=== PATIENT | female | born 1955 | race Caucasian/White ===

== ENCOUNTER 2021-10-26 18:51 | Emergency (ER) | payer BC, SELFPAY ==
[2021-10-26 19:20] VITALS: BP 146/86; PULSE 87; RESP 19; TEMP 37; O2SAT 98; BMI 48.2
--- NOTE | 2021-10-26 19:29 | XR_ITS ---
PROCEDURE INFORMATION: Exam: XR Chest Exam date and time: 10/26/2021 7:29 PM Age: 65 years old Clinical indication: Cough TECHNIQUE: Imaging protocol: XR of the chest. Views: 2 views. COMPARISON: No relevant prior studies available. FINDINGS: Lungs: Subtle interstitial haziness could reflect interstitial pneumonia. No consolidation. Pleural spaces: Unremarkable. No pleural effusion. No pneumothorax. Heart/Mediastinum: Unremarkable. No cardiomegaly. Bones/joints: Unremarkable. IMPRESSION: Subtle interstitial haziness could reflect interstitial pneumonia.
[2021-10-26 19:47] LABS: UTC Strep Screen (Rapid) Negative (Negative)
[2021-10-26 19:48] LABS: UTC Influenza A Antigen Negative (Negative); UTC Influenza B Antigen Negative (Negative)
--- NOTE | 2021-10-26 19:55 | HMH.EDUTC ---
[facility] Disposition Condition on Discharge: Good Time of Disposition: 20:34 <Valentin Stockton - Last Filed: 10/26/21 20:32> <Ta Gorman - Last Filed: 10/26/21 21:48> Clinical Impression: Wheezing CHF (congestive heart failure) Qualifiers: Heart failure type: other Qualified Code(s): I50.9 - Heart failure, unspecified Disposition: Home, Self-Care Instructions: Heart Failure Additional Instructions: see card in am for eval Prescriptions: Benzonatate [Benzonatate 100mg cap] 100 mg PO BID PRN 7 Days #14 cap PRN Reason: Cough Transmission Status: Sent to [facility] Azithromycin [Zithromax 250mg tab] 250 mg PO DIRECTED #6 tab Transmission Status: Sent to [facility] Referrals: Rowan Neville APRN [Primary Care Provider] - Jhon Ng MD [Staff Physician] - Medical Decision Making - Adam Inquiry Pt receiving controlled substance: No - Physician Consults Physician Consulted: bharat Time: 20:32 Reason -: Other Comment/Response: chest xray- poss chf- sent to ed for evaluation and treatment <Valentin Stockton - Last Filed: 10/26/21 20:32> - Medical Records Medical records reviewed: Yes: I reviewed the patient's medical records. - Lab Data Lab results reviewed: Yes: I reviewed the patient's lab results. Result diagrams: 10/26/21 20:48 10/26/21 20:48 - Radiology Data #1 Image(s): Chest Image Reviewed: Yes I have reviewed radiologist's interpretation Preliminary Findings: Abnormal - ECG Data Tracing #1 Normal Sinus Rhythm: Yes Ischemic changes: non-specific ST-T wave changes <Ta Gorman - Last Filed: 10/26/21 21:48> Vital Signs: 10/26/21 19:20 10/26/21 20:20 10/26/21 20:54 Temperature 98.6 F 98.6 F 98.2 F Temperature Source Oral Oral Pulse Rate 87 Pulse Rate [Right Brachial] 87 77 Respiratory Rate 19 19 20 Blood Pressure 146/86 H Blood Pressure [Right Arm] 146/86 H 166/65 H Blood Pressure Mean [Right Arm] 106 98 Blood Pressure Source [Right Arm] Automatic Cuff Automatic Cuff Blood Pressure Position [Right Arm] Sitting Sitting 02 Sat by Pulse Oximetry 98 99 Oxygen Delivery Method Room Air Room Air - Lab Data Lab Results 10/26/21 19:47: Influenza Type A Ag Negative, Influenza Type B Ag Negative 10/26/21 19:47: Strep Scn Rapid Clinic Negative 10/26/21 20:48: WBC 6.5, RBC 4.54, Hgb 14.0, Hct 44.7, MCV 98.5, MCH 30.8, MCHC 31.3 L, RDW 14.7, Plt Count 251, MPV 8.9, Neut % (Auto) 63.5, Lymph % (Auto) 25.6, [place] % (Auto) 4.6, Eos % (Auto) 4.9, Baso % (Auto) 1.4, Neut # (Auto) 4.1, Lymph # (Auto) 1.7, [place] # (Auto) 0.3, Eos # (Auto) 0.3, Baso # (Auto) 0.1 10/26/21 20:48: Sodium 138, Potassium 4.2, Chloride 101, Carbon Dioxide 28, Anion Gap 13.2, BUN 8, Creatinine 0.80, Estimated Creat Clear 43, Estimated GFR 72, Est GFR ( Amer) 87, Glucose 112 H, Calcium 9.3, Total Bilirubin 0.7, AST 30, ALT 20, Alkaline Phosphatase 78, Troponin I < 0.01, NT-Pro-B Natriuret Pep 995 H, Total Protein 6.8, Albumin 4.1, Globulin 2.7, Albumin/Globulin Ratio 1.5 Orders (Tests/Meds): ED MEDICATIONS Discontinued Medications Generic Name Dose Route Start Last Admin Trade Name Freq PRN Reason Stop Dose Admin Dexamethasone Sodium Phosphate 4 mg 10/26/21 20:11 10/26/21 20:17 Dexamethasone 4mg/Ml 1ml Vial IM 10/26/21 20:12 4 mg ONCE ONE Administration Furosemide 40 mg 10/26/21 21:02 10/26/21 21:03 Furosemide 40mg/4ml Vial IV 10/26/21 21:03 40 mg ONCE ONE Administration ORDERS Category Date Time Status Covid-19 Nasal PCR ([facility]) Routine Lab 10/26/21 19:30 Received Lipid Panel Stat Lab 10/26/21 21:43 Ordered T4 (Thyroxine) Stat Lab 10/26/21 21:43 Ordered Thyroid Stimulating Hormone Stat Lab 10/26/21 21:43 Ordered Troponin I Q3H Lab 10/26/21 23:51 Ordered Troponin I Q3H Lab 10/27/21 02:51 Ordered Strep Screen Confirmation Stat Micro 10/26/21 19:47 Received Medical Decision Narrative: c
[2021-10-26 20:20] VITALS: BP 146/86; PULSE 87; RESP 19; TEMP 37; O2SAT 98
--- NOTE | 2021-10-26 20:30 | PC.NURSE ---
PATIENT SENT TO ER PER Krystina MAN APRN FOR FURTHER EVALUATION. REPORT GIVEN TO Edie STEWART RN
--- NOTE | 2021-10-26 20:41 | ECG_ITS ---
APPROVED REPORT Exam: Resting ECG HR:73 bpm ECG Measurements Heart Rate 73 AXES SC 158 P 61 QRSd 80 QRS 59 QT 380 T 48 QTc 418 Conclusion Normal sinus rhythm Low voltage QRS Borderline ECG Electronically signed by : Georgi Tam MD 10/29/2021 13:28:42
[2021-10-26 20:54] VITALS: BP 166/65; PULSE 77; RESP 20; TEMP 36.8; O2SAT 99; BMI 48.6
[2021-10-26 20:56] LABS: Basophils # 0.1 K/mm3 (0-0.2); Basophils % 1.4 % (0.1-2.0); Eosinophils # 0.3 K/mm3 (0.0-0.4); Eosinophils % 4.9 % (0.1-12.0); Hematocrit 44.7 % (37.0-47.0); Lymphocytes # 1.7 K/mm3 (0.7-4.5); Lymphocytes % 25.6 % (10-50); Mean Corpuscular HGB Conc 31.3 g/dL (31.8-35.4); Mean Corpuscular Hemoglobin 30.8 pg (27.0-31.2); Mean Corpuscular Volume 98.5 fl (81-99); Mean Platelet Volume 8.9 fl (7.4-10.4); Monocytes # 0.3 K/mm3 (0.1-1.0); Monocytes % 4.6 % (1.7-9.3); Neutrophils # 4.1 K/mm3 (1.8-7.8); Neutrophils % 63.5 % (37.0-80.0); Platelet Count 251 K/mm3 (142-424); Red Blood Count 4.54 M/mm3 (4.20-5.40); Red Cell Distribution Width 14.7 % (11.5-17.5); White Blood Count 6.5 K/mm3 (4.8-10.8)
[2021-10-26 21:04] LABS: Alanine Aminotransferase 20 U/L (12-78); Albumin Level 4.1 g/dl (3.5-5.0); Albumin/Globulin Ratio 1.5 (1.1-1.8); Alkaline Phosphatase 78 U/L (38-126); Anion Gap 13.2 mEq/L (5-15); Aspartate Amino Transferase 30 U/L (14-36); Bilirubin,Total 0.7 mg/dl (0.2-1.3); Blood Urea Nitrogen 8 mg/dl (7-17); Calcium 9.3 mg/dl (8.4-10.2); Carbon Dioxide 28 mmol/L (22.0-30.0); Chloride 101 mmol/L (98-107); Creatinine Clearance Estimated 43 mL/min (50-200); Estimated Glomerular Filt Rate 72 ml/min (>60); GFR (African American) 87 ML/MIN (>60); Globulin 2.7 g/dL (1.3-3.2); Glucose 112 mg/dl (74-100); Potassium 4.2 mmoL/L (3.5-5.1); Sodium 138 mmol/L (136-145); Total Protein,Serum 6.8 g/dl (6.3-8.2)
[2021-10-26 21:16] LABS: NT Pro Brain Natriuretic Pep. 995 pg/mL (0-125)
[2021-10-26 21:17] LABS: Troponin I < 0.01 ng/ml (0.00-0.034)
[2021-10-26 21:53] LABS: Cholesterol 191 mg/dl (140-200); Triglycerides 105 mg/dl (30-150); VLDL Cholesterol 21 mg/dL (0-40)
[2021-10-26 21:54] LABS: Chol/HDL Ratio 1.8 (1-3.5); HDL Cholesterol 106 mg/dl (40-60)
[2021-10-26 22:04] LABS: Direct LDL Cholesterol 68.02 mg/dL (100-129)
[2021-10-26 22:11] VITALS: BP 153/78; PULSE 79; RESP 20; TEMP 36.7; O2SAT 97
[2021-10-26 22:12] LABS: T4 (Thyroxine) 10.3 ug/dl (5.53-11.0)
[2021-10-26 22:26] LABS: Thyroid Stimulating Hormone 7.28 uIU/mL (0.465-4.68)
== END 2021-10-26 22:15 | disposition home or self-care (01) ==
LOC: UTC 20:33 → ER 20:44
PROVIDERS: Emergency Medicine; Emergency Provider Nurse Practitioner Family; PCP Nurse Practitioner Family
DX: I50.9 Heart failure, unspecified (principal); R05.1 Acute cough; R06.2 Wheezing; Z20.822 Contact with and (suspected) exposure to COVID-19
CPT/HCPCS: 71046; 80053; 80061; 83880; 84436; 84443; 84484; 85025; 87804; 87880; 93005; 96372; 96374; 96375; 99291; C9803; U0003; U0005

== ENCOUNTER → 2022-10-20 09:01 | Outpatient (CLI) | payer BC, SELFPAY ==
--- NOTE | 2022-10-20 09:01 | US_ITS ---
FINAL REPORT CLINICAL HISTORY: back and abdominal discomfort FINDINGS: Sonographic images of the abdomen were obtained. The liver has mild increased echogenicity. The gallbladder has an unremarkable appearance without evidence of gallstones. There is no evidence of biliary ductal dilatation. The common hepatic duct measures 3 mm, which is within normal limits. Limited images of the pancreas are unremarkable. The spleen size is normal. The right kidney measures 10.6 cm in length. The left kidney measures 11.5 cm in length. There is normal renal echogenicity. There is no evidence of hydronephrosis. The aorta has an unremarkable appearance. Limited images of the inferior vena cava are unremarkable. IMPRESSION: Mild fatty infiltration of the liver. Reviewed, Interpreted and Dictated by Franklyn Davis III, MD Transcribed by Kal Miramontes Authenticated and [facility]
--- NOTE | 2022-10-20 10:18 | XR_ITS ---
FINAL REPORT CLINICAL HISTORY: back pain right side between shoulder blades FINDINGS: THORACIC SPINE SERIES. Two views demonstrate no fracture. There are moderate degenerative changes with osteophytes. There is no malalignment. IMPRESSION: Moderate degenerative changes. Reviewed, Interpreted and Dictated by Franklyn Davis III, MD Transcribed by Kal Miramontes Authenticated and [facility]
== END ==
PROVIDERS: PCP Family Medicine; Visit Provider Family Medicine
DX: K21.9 Gastro-esophageal reflux disease without esophagitis (principal); M54.9 Dorsalgia, unspecified
CPT/HCPCS: 72070; 76700

== ENCOUNTER → 2022-12-07 23:30 | Outpatient (CLI) | payer BC, SELFPAY ==
[2022-12-07 17:17] LABS: Alanine Aminotransferase 13 U/L (12-78); Albumin Level 3.8 g/dl (3.5-5.0); Albumin/Globulin Ratio 1.5 (1.1-1.8); Alkaline Phosphatase 73 U/L (38-126); Anion Gap 8.5 mEq/L (5-15); Aspartate Amino Transferase 23 U/L (14-36); Bilirubin,Total 0.7 mg/dl (0.2-1.3); Blood Urea Nitrogen 16 mg/dl (7-17); Calcium 8.6 mg/dl (8.4-10.2); Carbon Dioxide 29 mmol/L (22.0-30.0); Chloride 96 mmol/L (98-107); Cholesterol 184 mg/dl (140-200); Estimated Glomerular Filt Rate 84 ml/min (>60); GFR (African American) 101 ML/MIN (>60); Globulin 2.5 g/dL (1.3-3.2); Glucose 65 mg/dl (74-100); HDL Cholesterol 90 mg/dl (40-60); Magnesium 1.8 mg/dl (1.6-2.3); Potassium 4.5 mmoL/L (3.5-5.1); Sodium 129 mmol/L (136-145); Total Protein,Serum 6.3 g/dl (6.3-8.2); Triglycerides 44 mg/dl (30-150); VLDL Cholesterol 9 mg/dL (0-40)
[2022-12-07 17:24] LABS: Basophils % 0.7 % (0.1-2.0); Eosinophils # 0.1 K/mm3 (0.0-0.4); Eosinophils % 1.4 % (0.1-12.0); Hematocrit 47.3 % (37.0-47.0); Hemoglobin 15.5 g/dL (12.2-16.2); Lymphocytes # 1.2 K/mm3 (0.7-4.5); Lymphocytes % 21.2 % (10-50); Mean Corpuscular HGB Conc 32.7 g/dL (31.8-35.4); Mean Corpuscular Hemoglobin 30.6 pg (27.0-31.2); Mean Corpuscular Volume 93.8 fl (81-99); Mean Platelet Volume 9.4 fl (7.4-10.4); Monocytes # 0.4 K/mm3 (0.1-1.0); Monocytes % 6.1 % (1.7-9.3); Neutrophils # 4.1 K/mm3 (1.8-7.8); Neutrophils % 70.5 % (37.0-80.0); Platelet Count 279 K/mm3 (142-424); Red Blood Count 5.05 M/mm3 (4.20-5.40); Red Cell Distribution Width 13.4 % (11.5-17.5); White Blood Count 5.8 K/mm3 (4.8-10.8)
[2022-12-07 17:27] LABS: Direct LDL Cholesterol 78.06 mg/dL (100-129)
[2022-12-07 18:06] LABS: Vitamin B12 291 pg/mL (239-931)
[2022-12-07 18:08] LABS: Hemoglobin A1C 6.1 % (4.0-6.0)
== END ==
PROVIDERS: PCP Family Medicine; Visit Provider Family Medicine
DX: Z00.00 Encounter for general adult medical examination without abnormal findings (principal); I10 Essential (primary) hypertension; E11.69 Type 2 diabetes mellitus with other specified complication; E03.9 Hypothyroidism, unspecified; Z79.4 Long term (current) use of insulin
CPT/HCPCS: 80053; 80061; 82607; 83036; 83735; 84443; 85025

== ENCOUNTER → 2022-12-15 19:36 | Outpatient (CLI) | payer BC, SELFPAY ==
[2022-12-15 20:29] LABS: Anion Gap 8.6 mEq/L (5-15); Blood Urea Nitrogen 15 mg/dl (7-17); Calcium 8.6 mg/dl (8.4-10.2); Carbon Dioxide 27 mmol/L (22.0-30.0); Chloride 102 mmol/L (98-107); Estimated Glomerular Filt Rate 63 ml/min (>60); GFR (African American) 76 ML/MIN (>60); Glucose 126 mg/dl (74-100); Potassium 5.6 mmoL/L (3.5-5.1); Sodium 132 mmol/L (136-145)
== END ==
PROVIDERS: PCP Family Medicine; Visit Provider Family Medicine
DX: E87.1 Hypo-osmolality and hyponatremia (principal)
CPT/HCPCS: 80048

== ENCOUNTER → 2022-12-23 12:39 | Outpatient (CLI) | payer BC, SELFPAY ==
[2022-12-23 12:49] LABS: Microscopic, Urine URINE MICROSCOPIC (MICROSCOPIC)
[2022-12-23 13:08] LABS: Appearance,Urine CLEAR (Clear); Bilirubin,Urine Negative (Negative); Blood, Urine Negative (Negative); Color,Urine YELLOW (Yellow); Glucose,Urine (UA) Negative (Negative); Ketones,Urine Negative (Negative); Leukocyte Esterase,Urine 2+ (Negative); Nitrate,Urine Negative (Negative); PH,Urine 5.5 (5.0-8.5); Protein,Urine Negative (Negative); Urobilinogen,Urine 0.2 EU/dl (0.2)
[2022-12-23 13:10] LABS: Basophils # 0.1 K/mm3 (0-0.2); Basophils % 1.2 % (0.1-2.0); Eosinophils # 0.2 K/mm3 (0.0-0.4); Eosinophils % 3.3 % (0.1-12.0); Hematocrit 49.1 % (37.0-47.0); Lymphocytes # 1.4 K/mm3 (0.7-4.5); Mean Corpuscular HGB Conc 32.5 g/dL (31.8-35.4); Mean Corpuscular Hemoglobin 30.8 pg (27.0-31.2); Mean Corpuscular Volume 94.6 fl (81-99); Mean Platelet Volume 8.6 fl (7.4-10.4); Monocytes # 0.3 K/mm3 (0.1-1.0); Monocytes % 6.2 % (1.7-9.3); Neutrophils # 3.2 K/mm3 (1.8-7.8); Neutrophils % 61.4 % (37.0-80.0); Platelet Count 322 K/mm3 (142-424); Red Blood Count 5.19 M/mm3 (4.20-5.40); Red Cell Distribution Width 13.7 % (11.5-17.5); White Blood Count 5.2 K/mm3 (4.8-10.8)
[2022-12-23 13:12] LABS: Creatinine,Urine Random 82 mg/dL (Not Estab.)
[2022-12-23 13:48] LABS: Albumin Level 3.9 g/dl (3.5-5.0); Chloride 96 mmol/L (98-107); Sodium 129 mmol/L (136-145)
[2022-12-23 13:51] LABS: Blood Urea Nitrogen 13 mg/dl (7-17); Calcium 8.7 mg/dl (8.4-10.2); Carbon Dioxide 29 mmol/L (22.0-30.0); Estimated Glomerular Filt Rate 72 ml/min (>60); GFR (African American) 87 ML/MIN (>60); Glucose 94 mg/dl (74-100); Phosphorous 3.7 mg/dl (2.5-4.5)
[2022-12-23 13:53] LABS: Bacteria,Urine 2+ /lpf; RBC,Urine Occasional #/hpf (0-3); Squamous Epithelial Cell,Urine Occasional #/hpf (0-5)
[2022-12-23 13:58] LABS: Uric Acid 3.4 mg/dl (2.5-6.2)
== END ==
PROVIDERS: PCP Family Medicine; Visit Provider Internal Medicine Nephrology
DX: N28.9 Disorder of kidney and ureter, unspecified (principal); B96.1 Klebsiella pneumoniae [K. pneumoniae] as the cause of diseases classified elsewhere
CPT/HCPCS: 36415; 80069; 81001; 82570; 84155; 84550; 85025; 87086; 87088; 87186

== ENCOUNTER → 2023-01-19 18:52 | Outpatient (CLI) | payer BC, SELFPAY ==
[2023-01-19 19:35] LABS: Microscopic, Urine URINE MICROSCOPIC (MICROSCOPIC)
[2023-01-19 19:52] LABS: Chloride 93 mmol/L (98-107)
[2023-01-19 19:53] LABS: Potassium 4.8 mmoL/L (3.5-5.1); Sodium 128 mmol/L (136-145)
[2023-01-19 19:55] LABS: Alanine Aminotransferase 27 U/L (12-78); Alkaline Phosphatase 84 U/L (38-126); Aspartate Amino Transferase 29 U/L (14-36); Bilirubin,Total 0.8 mg/dl (0.2-1.3); Blood Urea Nitrogen 14 mg/dl (7-17); Creatine Kinase 40 U/L (30-135); Estimated Glomerular Filt Rate 72 ml/min (>60); GFR (African American) 87 ML/MIN (>60)
[2023-01-19 19:56] LABS: Albumin/Globulin Ratio 1.5 (1.1-1.8); Anion Gap 11.8 mEq/L (5-15); Calcium 9.1 mg/dl (8.4-10.2); Carbon Dioxide 28 mmol/L (22.0-30.0); Globulin 2.7 g/dL (1.3-3.2); Glucose 116 mg/dl (74-100); Total Protein,Serum 6.7 g/dl (6.3-8.2)
[2023-01-19 20:01] LABS: C-Reactive Protein 0.8 mg/L (0-4)
[2023-01-19 20:04] LABS: Erythrocyte Sedimentation Rate 2 mm/hr (0-30)
[2023-01-19 20:07] LABS: Basophils # 0.1 K/mm3 (0-0.2); Basophils % 1.3 % (0.1-2.0); Eosinophils # 0.1 K/mm3 (0.0-0.4); Eosinophils % 1.5 % (0.1-12.0); Hematocrit 48.1 % (37.0-47.0); Hemoglobin 16.2 g/dL (12.2-16.2); Lymphocytes # 1.2 K/mm3 (0.7-4.5); Lymphocytes % 22.4 % (10-50); Mean Corpuscular HGB Conc 33.6 g/dL (31.8-35.4); Mean Corpuscular Hemoglobin 31.1 pg (27.0-31.2); Mean Corpuscular Volume 92.5 fl (81-99); Mean Platelet Volume 10.7 fl (7.4-10.4); Monocytes # 0.3 K/mm3 (0.1-1.0); Monocytes % 6.6 % (1.7-9.3); Neutrophils # 3.6 K/mm3 (1.8-7.8); Neutrophils % 68.3 % (37.0-80.0); Platelet Count 337 K/mm3 (142-424); Red Blood Count 5.21 M/mm3 (4.20-5.40); Red Cell Distribution Width 13.9 % (11.5-17.5); White Blood Count 5.2 K/mm3 (4.8-10.8)
[2023-01-19 20:34] LABS: Appearance,Urine CLEAR (Clear); Bilirubin,Urine Negative (Negative); Blood, Urine Negative (Negative); Color,Urine YELLOW (Yellow); Glucose,Urine (UA) Negative (Negative); Ketones,Urine Negative (Negative); Leukocyte Esterase,Urine 1+ (Negative); Nitrate,Urine POSITIVE (Negative); PH,Urine 7.5 (5.0-8.5); Protein,Urine Negative (Negative); Urobilinogen,Urine 0.2 EU/dl (0.2)
[2023-01-19 21:29] LABS: Bacteria,Urine 4+ /lpf; WBC,Urine 20-50 #/hpf (0-3)
== END ==
PROVIDERS: PCP Internal Medicine; Visit Provider Internal Medicine
DX: M35.00 Sjogren syndrome, unspecified (principal); M79.7 Fibromyalgia; Z79.1 Long term (current) use of non-steroidal anti-inflammatories (NSAID)
CPT/HCPCS: 80053; 81001; 82550; 85025; 85651; 86140; 87086; 87088; 87186

== ENCOUNTER → 2023-02-09 12:17 | Outpatient (CLI) | payer BC, SELFPAY ==
[2023-02-09 13:06] LABS: Creatinine,Urine Random 157 mg/dL (Not Estab.)
[2023-02-09 14:06] LABS: Albumin Level 3.6 g/dl (3.5-5.0); Chloride 96 mmol/L (98-107); Potassium 5.6 mmoL/L (3.5-5.1); Sodium 130 mmol/L (136-145)
[2023-02-09 14:09] LABS: Anion Gap 13.6 mEq/L (5-15); Blood Urea Nitrogen 15 mg/dl (7-17); Calcium 8.9 mg/dl (8.4-10.2); Carbon Dioxide 26 mmol/L (22.0-30.0); Estimated Glomerular Filt Rate 72 ml/min (>60); GFR (African American) 87 ML/MIN (>60); Glucose 99 mg/dl (74-100)
[2023-02-10 10:13] LABS: Sodium, Urine 82 mmol/L (Not Estab.)
[2023-02-11 07:15] LABS: Osmolality, Urine 483 mOsmol/kg (.)
[2023-02-15 20:19] LABS: Renin Activity, Plasma 3.789 ng/mL/hr (0.167-5.380)
== END ==
PROVIDERS: PCP Family Medicine; Visit Provider Internal Medicine Nephrology
DX: E87.1 Hypo-osmolality and hyponatremia (principal)
CPT/HCPCS: 36415; 80069; 82088; 82533; 82570; 83930; 83935; 84244; 84300

== ENCOUNTER → 2023-03-04 15:50 | Outpatient (CLI) | payer BC, SELFPAY ==
[2023-03-04 17:06] LABS: Basophils % 0.4 % (0.1-2.0); Eosinophils # 0.1 K/mm3 (0.0-0.4); Eosinophils % 2.7 % (0.1-12.0); Hematocrit 46.4 % (37.0-47.0); Hemoglobin 14.9 g/dL (12.2-16.2); Lymphocytes # 1.3 K/mm3 (0.7-4.5); Lymphocytes % 24.3 % (10-50); Mean Corpuscular Hemoglobin 30.1 pg (27.0-31.2); Mean Corpuscular Volume 94.2 fl (81-99); Mean Platelet Volume 8.7 fl (7.4-10.4); Monocytes # 0.4 K/mm3 (0.1-1.0); Monocytes % 7.1 % (1.7-9.3); Neutrophils # 3.4 K/mm3 (1.8-7.8); Neutrophils % 65.4 % (37.0-80.0); Platelet Count 281 K/mm3 (142-424); Red Blood Count 4.93 M/mm3 (4.20-5.40); Red Cell Distribution Width 13.7 % (11.5-17.5); White Blood Count 5.1 K/mm3 (4.8-10.8)
[2023-03-04 17:11] LABS: Chloride 95 mmol/L (98-107); Potassium 4.6 mmoL/L (3.5-5.1); Sodium 134 mmol/L (136-145)
[2023-03-04 17:14] LABS: Anion Gap 14.6 mEq/L (5-15); Blood Urea Nitrogen 19 mg/dl (7-17); Carbon Dioxide 29 mmol/L (22.0-30.0); Estimated Glomerular Filt Rate 72 ml/min (>60); GFR (African American) 87 ML/MIN (>60)
[2023-03-04 17:15] LABS: Calcium 9.2 mg/dl (8.4-10.2); Glucose 122 mg/dl (74-100)
== END ==
PROVIDERS: PCP Family Medicine; Visit Provider Family Medicine
DX: F41.9 Anxiety disorder, unspecified (principal)
CPT/HCPCS: 80048; 85025

== ENCOUNTER → 2023-03-09 23:48 | Outpatient (CLI) | payer BC, SELFPAY | PROVIDERS: PCP Family Medicine; Visit Provider Family Medicine | DX: M54.50 Low back pain, unspecified (principal); R10.30 Lower abdominal pain, unspecified | CPT/HCPCS: 87086 ==

== ENCOUNTER → 2023-03-15 17:11 | Outpatient (CLI) | payer BC, SELFPAY ==
[2023-03-15 19:51] LABS: Microscopic, Urine URINE MICROSCOPIC (MICROSCOPIC)
[2023-03-15 20:19] LABS: Albumin Level 3.5 g/dl (3.5-5.0); Blood Urea Nitrogen 16 mg/dl (7-17); Calcium 8.8 mg/dl (8.4-10.2); Carbon Dioxide 26 mmol/L (22.0-30.0); Chloride 95 mmol/L (98-107); Estimated Glomerular Filt Rate 72 ml/min (>60); GFR (African American) 87 ML/MIN (>60); Glucose 189 mg/dl (74-100); Sodium 133 mmol/L (136-145)
[2023-03-15 20:49] LABS: Appearance,Urine CLEAR (Clear); Bilirubin,Urine Negative (Negative); Blood, Urine Negative (Negative); Color,Urine YELLOW (Yellow); Glucose,Urine (UA) Negative (Negative); Ketones,Urine TRACE (Negative); Leukocyte Esterase,Urine TRACE (Negative); Nitrate,Urine Negative (Negative); PH,Urine 5.5 (5.0-8.5); Protein,Urine Negative (Negative); Urobilinogen,Urine 0.2 EU/dl (0.2)
[2023-03-15 21:17] LABS: Bacteria,Urine Trace /lpf; Squamous Epithelial Cell,Urine Occasional #/hpf (0-5); WBC,Urine Occasional #/hpf (0-3)
[2023-03-15 21:18] LABS: Transitional Epi Cells,Urine OCC #/lpf (0-3)
== END ==
PROVIDERS: Internal Medicine Nephrology; PCP Family Medicine; Visit Provider Family Medicine
DX: R10.30 Lower abdominal pain, unspecified (principal); M54.50 Low back pain, unspecified
CPT/HCPCS: 80069; 81001; 87086

== ENCOUNTER → 2023-03-15 19:07 | Outpatient (CLI) | payer BC, SELFPAY | PROVIDERS: PCP Family Medicine; Visit Provider Internal Medicine Nephrology | DX: R82.71 Bacteriuria (principal) ==

== ENCOUNTER → 2023-03-24 14:24 | Outpatient (CLI) | payer BC, SELFPAY ==
[2023-03-24 16:12] LABS: Basophils % 0.3 % (0.1-2.0); Eosinophils # 0.1 K/mm3 (0.0-0.4); Eosinophils % 2.6 % (0.1-12.0); Hemoglobin 14.6 g/dL (12.2-16.2); Lymphocytes # 1.3 K/mm3 (0.7-4.5); Lymphocytes % 23.4 % (10-50); Mean Corpuscular HGB Conc 32.5 g/dL (31.8-35.4); Mean Corpuscular Hemoglobin 30.5 pg (27.0-31.2); Mean Corpuscular Volume 94.1 fl (81-99); Mean Platelet Volume 10.3 fl (7.4-10.4); Monocytes # 0.3 K/mm3 (0.1-1.0); Monocytes % 5.9 % (1.7-9.3); Neutrophils # 3.6 K/mm3 (1.8-7.8); Neutrophils % 67.8 % (37.0-80.0); Platelet Count 302 K/mm3 (142-424); Red Blood Count 4.78 M/mm3 (4.20-5.40); Red Cell Distribution Width 13.8 % (11.5-17.5); White Blood Count 5.3 K/mm3 (4.8-10.8)
[2023-03-24 17:09] LABS: Alanine Aminotransferase 14 U/L (12-78); Albumin Level 3.4 g/dl (3.5-5.0); Albumin/Globulin Ratio 1.5 (1.1-1.8); Alkaline Phosphatase 83 U/L (38-126); Anion Gap 15.3 mEq/L (5-15); Aspartate Amino Transferase 19 U/L (14-36); Bilirubin,Total 0.7 mg/dl (0.2-1.3); Blood Urea Nitrogen 17 mg/dl (7-17); Calcium 8.8 mg/dl (8.4-10.2); Carbon Dioxide 28 mmol/L (22.0-30.0); Chloride 96 mmol/L (98-107); Estimated Glomerular Filt Rate 72 ml/min (>60); GFR (African American) 87 ML/MIN (>60); Globulin 2.3 g/dL (1.3-3.2); Glucose 166 mg/dl (74-100); Potassium 5.3 mmoL/L (3.5-5.1); Sodium 134 mmol/L (136-145); Total Protein,Serum 5.7 g/dl (6.3-8.2)
== END ==
PROVIDERS: PCP Family Medicine; Visit Provider Family Medicine
DX: I10 Essential (primary) hypertension (principal)
CPT/HCPCS: 80053; 85025

== ENCOUNTER → 2023-04-26 12:00 | Outpatient (CLI) | payer BC, SELFPAY ==
[2023-04-26 18:03] LABS: Basophils % 0.4 % (0.1-2.0); Eosinophils # 0.1 K/mm3 (0.0-0.4); Eosinophils % 1.9 % (0.1-12.0); Hematocrit 47.7 % (37.0-47.0); Hemoglobin 14.9 g/dL (12.2-16.2); Lymphocytes % 19.8 % (10-50); Mean Corpuscular HGB Conc 31.1 g/dL (31.8-35.4); Mean Corpuscular Hemoglobin 29.5 pg (27.0-31.2); Mean Corpuscular Volume 94.8 fl (81-99); Mean Platelet Volume 10.7 fl (7.4-10.4); Monocytes # 0.4 K/mm3 (0.1-1.0); Neutrophils # 3.6 K/mm3 (1.8-7.8); Platelet Count 275 K/mm3 (142-424); Red Blood Count 5.03 M/mm3 (4.20-5.40); Red Cell Distribution Width 13.8 % (11.5-17.5); White Blood Count 5.1 K/mm3 (4.8-10.8)
[2023-04-26 18:11] LABS: Alanine Aminotransferase 18 U/L (12-78); Albumin Level 3.8 g/dl (3.5-5.0); Albumin/Globulin Ratio 1.5 (1.1-1.8); Alkaline Phosphatase 89 U/L (38-126); Anion Gap 16.4 mEq/L (5-15); Aspartate Amino Transferase 26 U/L (14-36); Bilirubin,Total 0.9 mg/dl (0.2-1.3); Blood Urea Nitrogen 16 mg/dl (7-17); Calcium 8.9 mg/dl (8.4-10.2); Carbon Dioxide 28 mmol/L (22.0-30.0); Chloride 97 mmol/L (98-107); Estimated Glomerular Filt Rate 72 ml/min (>60); GFR (African American) 87 ML/MIN (>60); Globulin 2.5 g/dL (1.3-3.2); Glucose 124 mg/dl (74-100); Potassium 4.4 mmoL/L (3.5-5.1); Sodium 137 mmol/L (136-145); Total Protein,Serum 6.3 g/dl (6.3-8.2)
== END ==
PROVIDERS: PCP Family Medicine; Visit Provider Family Medicine
DX: R60.9 Edema, unspecified (principal)
CPT/HCPCS: 80053; 85025

== ENCOUNTER → 2023-05-24 12:47 | Outpatient (CLI) | payer BC, SELFPAY | LOC: RT 12:47 | PROVIDERS: PCP Family Medicine; Visit Provider Family Medicine | DX: R60.9 Edema, unspecified (principal) | CPT/HCPCS: 93306 ==

== ENCOUNTER 2024-05-14 10:55 | Emergency (ER) | payer BC, SELFPAY ==
[2024-05-14 11:15] VITALS: BP 144/65; PULSE 76; RESP 16; TEMP 36.5; O2SAT 98; BMI 39.6
--- NOTE | 2024-05-14 11:17 | ED_ITS ---
Discharge Plan Disposition Patient Disposition: Home, Self-Care Condition: Good Prescriptions Prescriptions: New cephalexin 500 mg capsule 500 mg PO QID 7 Days Qty: 28 0RF No Action levothyroxine [Synthroid] 50 mcg tablet 50 mcg PO ONCE (DME) infusion set for insulin pump Infusion Set See Rx Instructions .Route Rx Instructions: As directed in insulin pump calcium carbonate [Calcium 600] 600 mg calcium (1,500 mg) tablet 600 mg PO DAILY aspirin 81 mg capsule 81 mg PO DAILY insulin glargine [Lantus U-100 Insulin] 100 unit/mL solution 10 unit SQ HS PRN Rx Instructions: as per pump failure tretinoin 0.05 % cream topical (DME) Dexcom G6 Sensor Device See Rx Instructions .ROUTE .MEDSUPPLY Qty: 1 Patient Comments: APPLY ONE SENSOR TO SKIN AND CHANGE EVERY 10 DAYS Rx Instructions: As directed (DME) Dexcom G6 Transmitter Device See Rx Instructions .ROUTE .MEDSUPPLY Qty: 1 Rx Instructions: As directed Gvoke HypoPen 1-Pack 1 mg/0.2 mL auto-injector 1 mg SQ ONCE PRN (Reason: hypoglycemia) Zepbound 15 mg/0.5 mL pen injector 15 mg SQ Patient Comments: INJECT 0.5 ML SUBCUTANEOUSLY INTO THE APPROPRIATE AREA ONCE A WEEK DIRECTED. pilocarpine HCl 5 mg tablet 5 mg PO duloxetine 60 mg capsule,delayed release(DR/EC) 60 mg PO promethazine 25 mg tablet 25 mg PO QID PRN (Reason: nausea) fexofenadine 180 mg tablet 180 mg PO DAILY albuterol sulfate 2.5 mg /3 mL (0.083 %) solution for nebulization 2.5 mg inhalation Q6H Qty: 90 2RF tramadol 50 mg tablet 50 mg PO TID PRN (Reason: pain) Qty: 90 3RF atorvastatin 40 mg tablet See Rx Instructions .ROUTE .COMPLEX Qty: 90 0RF Dose Instruction: TAKE 1 TABLET DAILY Rx Instructions: TAKE 1 TABLET DAILY ondansetron 4 mg tablet,disintegrating 4 mg PO BID PRN (Reason: nausea and vomiting) Qty: 20 2RF Premarin 0.625 mg/gram cream 0.625 mg vaginal DAILY 90 Days Qty: 90 1RF alprazolam [Xanax] 0.25 mg tablet 0.25 - 0.75 mg PO Q8H PRN (Reason: anxiety) Qty: 60 1RF furosemide 40 mg tablet 40 mg PO DAILY 90 Days Qty: 90 0RF montelukast 10 mg tablet See Rx Instructions .ROUTE .COMPLEX Qty: 90 3RF Dose Instruction: TAKE 1 TABLET EVERY EVENING FOR ALLERGY SYMPTOMS Rx Instructions: TAKE 1 TABLET EVERY EVENING FOR ALLERGY SYMPTOMS nitrofurantoin monohyd/m-cryst [Macrobid] 100 mg capsule 100 mg PO DAILY Qty: 30 2RF Rx Instructions: must administer with a meal/food esomeprazole magnesium 40 mg capsule,delayed release(DR/EC) See Rx Instructions .ROUTE .COMPLEX Qty: 180 2RF Dose Instruction: TAKE 1 CAPSULE TWICE A DAY Rx Instructions: TAKE 1 CAPSULE TWICE A DAY albuterol sulfate 8.5 GM HFA aerosol inhaler 2 puff IH Q4-6H Referrals Follow up/Referrals: Simone To MD [Primary Care Provider] - See instructions Activity Restrictions/Add. Instructions Additional Instructions/Restrictions: Keep the wound clean and dry. Keep a dressing on it if you are going to be getting it dirty. Watch the wound for signs of infection, such as redness, swelling, drainage, fever. etc. Take tylenol or ibuprofen for pain. Follow up with your regular doctor. Return in 7 to 10 days to have the sutures removed. GO TO THE ER FOR ANY WORSENING SYMPTOMS OR CONCERNS. Clinical Impressions Clinical Impression: Laceration of right thumb, Need for Tdap vaccination Instructions Patient Instructions: DI for Laceration Repair -- Finger, Cephalexin Discharge ED Provider: Kulwant Floyd [facility] General Stated complaint: laceration to R thumb Time Seen by Provider: 05/14/24 11:16 History of Present Illness Provider Complaint: She states that about 30 minutes ago she was cleaning behind her stove when she bumped her right thumb on a sharp piece of metal. She has a laceration on the dorsal surface of that thumb. She denies any other injury or complaints. Her tetanus immunization is not up to date. Related Data Home Medications Medication Instructions Recorded Confirmed albuterol sulfate 90 mcg/actuation 2 puff inhalation Q4-6H soa 10/26/21 03/29/24 aerosol inhaler aspirin 81 mg capsule 81 mg PO DAILY 06/08/22 03/29/24 calcium carbonate (Calcium 600) 600 mg PO DAILY 06/08/22 03/29/24 infusion set for insulin pump 06/08/22 03/29/24 levothyroxine 50 mcg tablet 50 mcg PO ONCE thyroid 06/08/22 03/29/24 (Synthroid) blood-glucose sensor (Dexcom G6 #1 ea 10/19/22 03/29/24 Sensor device) blood-glucose transmitter (Dexcom #1 ea 10/19/22 03/29/24 G6 Transmitter device) insulin glargine 100 unit/mL 10 unit SQ HS PRN 10/19/22 03/29/24 subcutaneous solution (Lantus U-100 Insulin) tretinoin 0.05 % topical cream g topical 10/19/22 03/29/24 fexofenadine 180 mg tablet 180 mg PO DAILY allergies 02/23/23 03/29/24 promethazine 25 mg tablet 25 mg PO QID PRN nausea 02/23/23 03/29/24 glucagon 1 mg/0.2 mL subcutaneous 1 mg SQ ONCE PRN hypoglycemia 04/26/23 03/29/24 auto-injector (Gvoke HypoPen 1-Pack) duloxetine 60 mg capsule,delayed 60 mg PO 03/29/24 03/29/24 release pilocarpine HCl 5 mg tablet 5 mg PO 03/29/24 03/29/24 tirzepatide (weight loss) 15 15 mg SQ 03/29/24 03/29/24 mg/0.5 mL subcutaneous pen injector (Zepbound) Previous Rx's Medication Instructions Recorded albuterol sulfate 2.5 mg/3 mL 2.5 mg (3 mL) inhalation Q6H #90 mL 09/28/22 (0.083 %) solution for nebulization tramadol 50 mg tablet 50 mg PO TID PRN pain #90 tabs 05/07/23 atorvastatin 40 mg tablet See Rx Instructions .Route 06/08/23 .COMPLEX #90 tabs ondansetron 4 mg disintegrating 4 mg PO BID PRN nausea and 07/02/23 tablet vomiting #20 tabs conjugated estrogens 0.625 mg/gram 0.625 mg vaginal DAILY 90 days #90 07/23/23 vaginal cream (Premarin) grams alprazolam 0.25 mg tablet (Xanax) 0.25 - 0.75 mg (1 - 3 x 0.25 mg) 01/10/24 PO Q8H PRN anxiety #60 tabs furosemide 40 mg tablet 40 mg PO DAILY 90 days #90 tabs 02/07/24 montelukast 10 mg tablet See Rx Instructions .Route 02/07/24 .COMPLEX #90 tabs nitrofurantoin 100 mg PO DAILY #30 caps 02/07/24 monohydrate/macrocrystals 100 mg capsule (Macrobid) esomeprazole magnesium 40 mg See Rx Instructions .Route 04/04/24 capsule,delayed release .COMPLEX #180 caps cephalexin 500 mg capsule 500 mg PO QID 7 days #28 caps 05/14/24 Allergies Allergy/AdvReac Type Severity Reaction Status Date / Time lisinopril AdvReac Cough Verified 03/29/24 09:41 [facility] Dis[facility]: The information contained in this section may have been updated after the patient was seen, as this information can be updated by other users. Medical History Hypothyroid GERD (gastroesophageal reflux disease) Fibromyalgia Obstructive lung disease Sjogren syndrome with keratoconjunctivitis Hypertension CHF (congestive heart failure) Surgical History Hx of cataract surgery S/P trigger finger release History of hysterectomy History of H/O tubal ligation Family History Sister Diabetes Father Cancer Mother Diabetes Stroke Son Thyroid disorder Social History Smoking Status: Never smoker alcohol intake: current alcohol intake frequency: holidays/special occasions only substance use type: denies use current occupational status: retired Travel in the last 8 weeks: Inside the [place] household members: spouse housing: house ROS Obtained: Yes All systems reviewed & no additional complaints except as documented Constitutional Constitutional: Denies chills and Denies fever(s) Eyes Eyes: Denies eye discharge ENT Ears, Nose, Mouth, and Throat: Denies dizziness, Denies otalgia and Denies sore throat Cardiovascular Cardiovascular: Denies chest pain Respiratory Respiratory: Denies shortness of breath, Denies chest congestion, Denies cough, Denies stridor and Denies wheezing Gastrointestinal Gastrointestingal: Denies nausea or vomiting Musculoskeletal Musculoskeletal: Reports system reviewed and no additional complaints, except as documented and Denies arthralgias Integumentary/Breasts Skin/Breast: Reports as per HPI Neurologic Neurologic: Denies dizziness and Denies paresthesias Allergic/Immunologic Allergic/Immunologic: Denies wheezing Physical Exam General General appearance: alert and in no apparent distress Head Head exam: atraumatic, normocephalic and normal inspection Eye Eye exam: Present normal appearance, PERRL and EOMI ENT ENT exam: Present normal exam, normal oropharynx, mucous membranes moist, TM's normal bilaterally and normal external ear exam Neck Neck exam: Present normal inspection, full ROM and trachea midline; Absent meningismus or lymphadenopathy Chest Chest inspection: Present normal inspection and symmetric chest wall rise; Absent tenderness Respiratory Respiratory exam: Present normal lung sounds bilaterally; Absent respiratory distress Cardiovascular Cardiovascular exam: Present regular rate and normal rhythm; Absent JVD Abdominal Exam Abdominal exam: Present soft and normal bowel sounds; Absent distention, tenderness or guarding Extremities Exam Extremities exam: Present full ROM and normal capillary refill; Absent calf tenderness Expanded Upper Extremity Exam Right: Forearm/Wrist exam: Present normal inspection and full ROM; Absent tender ness, tenderness over anatomical snuff box or pain with axial thumb loading Hand exam: Present full ROM, tenderness and laceration Neuromotor exam: Normal wrist extension, thumb opposition, thumb IP flexion, thumb adduction and fingers 2-5 abduction Neurosensory exam: Normal radial nerve, ulnar nerve and median nerve Vascular exam: Normal capillary refill, radial pulse and ulnar pulse Back Exam Back exam: Present normal inspection; Absent tenderness Neurological Exam Neurological exam: Present alert and oriented X3 Psychiatric Psychiatric exam: Present normal affect and normal mood Skin Skin exam: Present other (there is a 1.5 flap type laceration on the dorsal aspect of her right thumb, no deep tissue or tendon damage, no foreign body noted, she has good 2 point touch discrimination distal to the wound. ) Lymphatic Lymphatic Findings: no adenopathy Medical Decision Making Medical Records Medical records reviewed: No I reviewed the patient's medical records. Adam Inquiry Pt receiving controlled substance: No Procedures Risk/Benefits of Procedure(s) Were Explained: Yes Laceration Laceration 1: Site: thumb Side (If applicable): right Size (cm): 1.5 Description: flap Depth: simple, single layer Local Anesthetic: lidocaine 1% Amount of anesthesia used (mL): 0.5 Pre-repair: wound explored, irrigated extensively and deep structures intact Skin layer closed with: nylon Size (cm): 5-0 Number of sutures: 4 Technique: simple, interrupted (She tolerated this well, good closure was obtained, the edges were approximated well. )
[2024-05-14] MEDS: TET/DIPHTH/PERT-ADULT 0.5ML SYRINGE 0.5 ML IM (11:39)
[2024-05-14 12:33] VITALS: BP 144/65; PULSE 76; RESP 16; TEMP 36.5; O2SAT 98
== END 2024-05-14 12:33 | disposition home or self-care (01) ==
PROVIDERS: Emergency Provider Nurse Practitioner Family; PCP Family Medicine
DX: S61.011A Laceration without foreign body of right thumb without damage to nail, initial encounter (principal); Z23 Encounter for immunization; W26.8XXA Contact with other sharp object(s), not elsewhere classified, initial encounter
CPT/HCPCS: 12001; 90471; 90715; 99204; 99213; G0463

== ENCOUNTER 2024-06-05 14:36 | Outpatient (CLI) | payer BC, SELFPAY ==
--- NOTE | 2024-06-05 14:40 | XR_ITS ---
FINAL REPORT CLINICAL HISTORY: Cough, shortness of breath COMPARISON: 10/26/2021 FINDINGS: Two views of the chest were obtained. The heart size and pulmonary vascularity are within normal limits. The mediastinum is normal. There is mild atelectasis or scarring in the left lung base. There is no pneumothorax. The bony thorax is intact. IMPRESSION: Mild atelectasis or scarring left lung base. Reviewed, Interpreted and Dictated by Franklyn Davis III, MD Transcribed by Linda Zavala Authenticated and [facility]
== END 2024-06-05 23:59 | disposition home or self-care (01) ==
PROVIDERS: PCP Family Medicine; Visit Provider Nurse Practitioner Family
DX: R06.02 Shortness of breath (principal); R05.9 Cough, unspecified; R06.2 Wheezing
CPT/HCPCS: 71046

== ENCOUNTER 2024-07-19 09:25 | Outpatient (CLI) | payer BC, SELFPAY ==
--- NOTE | 2024-07-19 09:25 | US_ITS ---
FINAL REPORT CLINICAL HISTORY: metabolic syndrome COMPARISON: None FINDINGS: Sonographic images of the right upper quadrant were obtained. The pancreas is obscured.The liver has an unremarkable appearance.The gallbladder appears normal without evidence of gallstones.There is no evidence of biliary ductal dilatation.The common duct measures 4 mm. Limited images of the right kidney are unremarkable. IMPRESSION: Unremarkable right upper quadrant ultrasound. Reviewed, Interpreted and Dictated by Darius Connors MD Transcribed by Linda Zavala Authenticated and [facility]
== END 2024-07-19 23:59 | disposition home or self-care (01) ==
LOC: RAD 09:25
PROVIDERS: PCP Family Medicine; Visit Provider Family Medicine
DX: E88.810 Metabolic syndrome (principal)
CPT/HCPCS: 76705

== ENCOUNTER 2024-12-21 15:15 | Outpatient (CLI) | payer BC, SELFPAY | END 2024-12-21 23:59 | disposition home or self-care (01) | LOC: LAB.DROPOF 12-22 11:03 | PROVIDERS: PCP Family Medicine; Visit Provider Family Medicine | DX: R39.9 Unspecified symptoms and signs involving the genitourinary system (principal) | CPT/HCPCS: 87086 ==

== ENCOUNTER 2025-05-09 14:26 | Outpatient (CLI) | payer BC, SELFPAY ==
--- OUTSIDE RECORDS SUMMARY | 2025-05-09 14:29 | XMS_ITS | Data Portability ---
Author Organization [facility] [place] [facility] Address [address] [place] [address] Care Team Providers Care Cardiopulmonary Specialist Name Role Phone NICKY CISSE Primary Care Provider [phone] Assessment Encounter Date Assessment Date Assessment LastModified by Organization Details LastModified Time 01/02/2020 01/02/2020 Continue Macrobid suppression. We discussed UTI prevention with increased hydration, timed and double voids. [email or web address] Not available 01/02/2020 12:15:58 06/25/2020 06/25/2020 We discussed UTI prevention with adequate hydration, timed and double voids, suppressive medications. We will alternate between Bactrim single strength and Macrobid for suppression. [email or web address] Not available 06/28/2020 20:11:54 Plan of Treatment Reminders Order Date Submit Date Provider Last Modified By Organization Details Last Modified Time Details Appointments FOLL OW UP DAK 2025 01:30P Jenny BATES NP Not available Not available Not available Lab trenton jimenezs tick 2019 020 [email or web address] [facility], [address], [place], [address], 06/25/2020 12:11:09 lebron jimenez , auto 2019 020 [email or web address] [facility], [address], [address], [place], [address], 02/05/2020 12:59:08 Referral None shailesh rded . Procedures None shailesh rded . Surgeries None shailesh rded . Imaging None shailesh rded . Medication Orders tret inoi n 0.1 % topi sugar crea m 2024 025 [facility] [address], [address] [place] [address], [id number], 11/13/2024 15:38:22 tria mcin olon e acet onid e 0.1 % topi sugar oint ment 2024 025 [email or web address] [facility] [address], [address] [place], [address], 11/13/2024 15:32:41 Bact rim 400 mg-8 0 mg tabl et [email or web address] [place], [place] [address], [address] [place], [address], 09/09/2023 13:50:39 nitr ofur anto in mono hydr ate/ macr ocry stal s 100 mg caps ule 2019 020 INTERFACE [facility], [address] [place] [address], [id number], 01/02/2020 12:16:38 Patient TargetsNo targets recorded. Patient Instructions Encounter Date Encounter Id Patient Instructions Last Modified By Organization Details Last Modified Time 01/02/2020 [id number] learning about healthy weight [email or web address] Not available 01/02/2020 12:15:59 Reason for Referral None Reported. Results Created Date Observation Date Name Description Value Unit Range Abnormal Flag Note LastModifiedBy Organization Detail LastModifiedTime 06/25/2006/25/2020 urina lysis , dipst ick Unknown Analyte Yellow Not Available [facility] [address], [place], [address], 06/25/2020 10:43:42 06/25/20 20 06/25/2020 urina lysis , dipst ick Unknown Analyte Clear Not Available [facility] [address] [place] [address] [address], [place], [address], 06/25/2020 10:43:42 06/25/20 20 06/25/2020 urina lysis , dipst ick Unknown Analyte 1.010 Not Available [facility] [address], [place], [address], 06/25/2020 10:43:42 06/25/20 20 06/25/2020 urina lysis , dipst ick Unknown Analyte 1.003 - 1.035 Not Available [facility] [address], [place], [address], 06/25/2020 10:43:42 06/25/20 20 06/25/2020 urina lysis , dipst ick Unknown Analyte 6.5 Not Available [facility] [address], [place], [address], 06/25/2020 10:43:42 06/25/20 20 06/25/2020 urina lysis , dipst ick Unknown Analyte 5.0 - 8.0 Not Available [facility] [address], [place], [address], 06/25/2020 10:43:42 06/25/20 20 06/25/2020 urina lysis , dipst ick Unknown Analyte 75 Mayur/ul (+) Not Available [facility] [address] [place] [address] [address], [place], [address], 06/25/2020 10:43:42 06/25/20 20 06/25/2020 urina lysis , dipst ick Unknown Analyte Negati ve Not Available [facility] [address], [place], [address], 06/25/2020 10:43:42 06/25/20 20 06/25/2020 urina lysis , dipst ick Unknown Analyte Negati ve Not Available [facility] [address], [place], [address], 06/25/2020 10:43:42 06/25/20 20 06/25/2020 urina lysis , dipst ick Unknown Analyte Negati ve Not Available [facility] [address], [place], [address], 06/25/2020 10:43:42 06/25/20 20 06/25/2020 urina lysis , dipst ick Unknown Analyte Negati ve Not Available [facility] [address], [place], [address], 06/25/2020 10:43:42 06/25/20 20 06/25/2020 urina lysis , dipst ick Unknown Analyte Negati ve - Trace Not Available [facility] [address], [place], [address], 06/25/2020 10:43:42 06/25/20 20 06/25/2020 urina lysis , dipst ick Unknown Analyte Normal Not Available [facility] [address], [place], [address], 06/25/2020 10:43:42 06/25/20 20 06/25/2020 urina lysis , dipst ick Unknown Analyte Normal Not Available [facility] [address], [place], [address], 06/25/2020 10:43:42 06/25/20 20 06/25/2020 urina lysis , dipst ick Unknown Analyte Negati ve Not Available [facility] [address], [place], [address], 06/25/2020 10:43:42 06/25/20 20 06/25/2020 urina lysis , dipst ick Unknown Analyte Negati ve Not Available [facility] [address], [place], [address], 06/25/2020 10:43:42 06/25/20 20 06/25/2020 urina lysis , dipst ick Unknown Analyte Normal Not Available [facility] [address], [place], [address], 06/25/2020 10:43:42 06/25/20 20 06/25/2020 urina lysis , dipst ick Unknown Analyte Normal - 1mg/dl Not Available [facility] [address], [place], [address], 06/25/2020 10:43:42 06/25/20 20 06/25/2020 urina lysis , dipst ick Unknown Analyte Negati ve Not Available [facility] [address], [place], [address], 06/25/2020 10:43:42 06/25/20 20 06/25/2020 urina lysis , dipst ick Unknown Analyte Negati ve Not Available [facility] [address], [place], [address], 06/25/2020 10:43:42 06/25/20 20 06/25/2020 urina lysis , dipst ick Unknown Analyte Negati ve Not Available [facility] [address], [place], [address], 06/25/2020 10:43:42 06/25/20 20 06/25/2020 urina lysis , dipst ick Unknown Analyte Negati ve Not Available [facility] [address], [place], [address], 06/25/2020 10:43:42 06/25/20 20 06/25/2020 urina lysis , dipst ick Unknown Analyte Clean Catch Not Available [facility] [address] [facility] [address], [place], [address], 06/25/2020 10:43:42 06/25/20 20 06/25/2020 urina lysis , dipst ick Unknown Analyte Automa makenzie Not Available [facility] [address] [facility] [address], [place], [address], 06/25/2020 10:43:42 01/02/20 20 01/02/2020 urina lysis , dipst ick, auto Unknown Analyte Yellow Not Available [facility] [address], [place], [address], 01/02/2020 12:49:56 01/02/20 20 01/02/2020 urina lysis , dipst ick, auto Unknown Analyte Clear Not Available [facility] [address], [place], [address], 01/02/2020 12:49:56 01/02/20 20 01/02/2020 urina lysis , dipst ick, auto Unknown Analyte 1.005 Not Available [facility] [address] [place] [address] [address], [place], [address], 01/02/2020 12:49:56 01/02/2001/02/2020 urina lysis , dipst ick, auto Unknown Analyte 1.003 - 1.035 Not Available [facility] [address] [facility] [address], [place], [address], 01/02/2020 12:49:56 01/02/2001/02/2020 urina lysis , dipst ick, auto Unknown Analyte 7.0 Not Available [facility] [address], [place], [address], 01/02/2020 12:49:56 01/02/2001/02/2020 urina lysis , dipst ick, auto Unknown Analyte 5.0 - 8.0 Not Available [facility] [address], [place], [address], 01/02/2020 12:49:56 01/02/2001/02/2020 urina lysis , dipst ick, auto Unknown Analyte Negati ve Not Available [facility] [address] [place] [address] [address], [place], [address], 01/02/2020 12:49:56 01/02/2001/02/2020 urina lysis , dipst ick, auto Unknown Analyte Negati ve Not Available [facility] [address], [place], [address], 01/02/2020 12:49:56 01/02/2001/02/2020 urina lysis , dipst ick, auto Unknown Analyte Negati ve Not Available [facility] [address], [place], [address], 01/02/2020 12:49:56 01/02/2001/02/2020 urina lysis , dipst ick, auto Unknown Analyte Negati ve Not Available [facility] [address], [place], [address], 01/02/2020 12:49:56 01/02/2001/02/2020 urina lysis , dipst ick, auto Unknown Analyte Negtiv e Not Available [facility] [address], [place], [address], 01/02/2020 12:49:56 01/02/2001/02/2020 urina lysis , dipst ick, auto Unknown Analyte Negati ve - Trace Not Available [facility] [address], [place], [address], 01/02/2020 12:49:56 01/02/2001/02/2020 urina lysis , dipst ick, auto Unknown Analyte Normal Not Available [facility] [address] [place] [address] [address], [place], [address], 01/02/2020 12:49:56 01/02/2001/02/2020 urina lysis , dipst ick, auto Unknown Analyte Normal Not Available [facility] [address], [place], [address], 01/02/2020 12:49:56 01/02/2001/02/2020 urina lysis , dipst ick, auto Unknown Analyte Negati ve Not Available [facility] [address] [place] [address] [address], [place], [address], 01/02/2020 12:49:56 01/02/2001/02/2020 urina lysis , dipst ick, auto Unknown Analyte Negati ve Not Available [facility] [address], [place], [address], 01/02/2020 12:49:56 01/02/2001/02/2020 urina lysis , dipst ick, auto Unknown Analyte Normal Not Available [facility] [address] [facility] [address], [place], [address], 01/02/2020 12:49:56 01/02/20 20 01/02/2020 urina lysis , dipst ick, auto Unknown Analyte Normal - 1mg/dl Not Available [facility] [address] [facility] [address], [place], [address], 01/02/2020 12:49:56 01/02/2001/02/2020 urina lysis , dipst ick, auto Unknown Analyte Negati ve Not Available [facility] [address], [place], [address], 01/02/2020 12:49:56 01/02/2001/02/2020 urina lysis , dipst ick, auto Unknown Analyte Negati ve Not Available [facility] [address] [facility] [address], [place], [address], 01/02/2020 12:49:56 01/02/20 20 01/02/2020 urina lysis , dipst ick, auto Unknown Analyte Negati ve Not Available [facility] [address] [facility] [address], [place], [address], 01/02/2020 12:49:56 01/02/2001/02/2020 urina lysis , dipst ick, auto Unknown Analyte Negati ve Not Available [facility] [address], [place], [address], 01/02/2020 12:49:56 01/02/2001/02/2020 urina lysis , dipst ick, auto Unknown Analyte Clean Catch Not Available [facility] [address], [place], [address], 01/02/2020 12:49:56 01/02/2001/02/2020 urina lysis , dipst ick, auto Unknown Analyte Automa makenzie Not Available [facility] [address] [place] [address] [address], [place], [address], 01/02/2020 12:49:56 Result Notes None recorded. Problems Name Problem SNOMED Code Status Onset Date Resolution Date Notes Provider Name and Address Organization Details Recorded Time Urinary tract infectious disease 98788616 Active 2017 THERESA Oliver [facility] 8 15:37:02 Chronic obstructive pulmonary disease 68167361 Active 2022 Izzy Peraza [facility] 3 13:53:05 Type 1 diabetes mellitus 34297510 Active 2022 Izzyvíctor Peraza [facility] 3 13:53:17 Gastroesophage al reflux disease 854786682 Active 2022 Izzyvíctor Peraza [facility] 3 13:53:23 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 Procedures Surgical History Date Name Laterality Status Provider Name and Address Organization Details Recorded Time 11/13/19 25 DAK - Acne Surgery completed Farnaz Trimble [facility] 11/13/2024 14:39:54 08/09/20 17 Date of Last Pap Smear completed Holden Gomez [facility] 08/13/2017 13:59:24 07/15/20 17 Post Void Residual; Ultrasound completed [facility] 07/15/2017 11:24:07 11/01/18 [address] [facility] 07/15/2017 10:51:18 delivery completed Sosa Machado [facility] 07/14/2018 15:37:37 Imaging Results None recorded. Procedure Notes None recorded. Medical Equipment None Reported. Allergies Allergen ID Allergen Name Allergen Category Reaction Reaction Severity Criticality Documentation Date Start Date Code Code System Note Provider Name and Address Organization Details Recorded Time 860421 Bactrim medicatio n Not available Not available Not available 09/05/2019 92931 9 RxNorm ALIYAH JUDGE MD [address] [place] [address], [phone] , [facility] 0 12:11:16 Medications Name Sig Start Date Stop Date Status Note LastModified by Organization Details LastModified Time Singulair 10 mg tablet Daily active Frequenc y: daily;Me dication Descript ion: monteluk ast; Dosage:1 ; Route:or al; refills: 5; Quantity :30 tablet Not Available Not Available Not Available tretinoin 0.1 % topical cream Apply [facility] 2024 active Not Available Not Available Not Avai lable furosemid e 40 mg tablet Take 1 tablet every day by oral route as needed. active Not Available Not Available No t Available atorvasta tin 40 mg tablet Take 1 tablet every day by oral route. active Not Available Not Available No t Available pilocarpi ne 5 mg tablet Take 1 tablet 3 times a day by oral route. active Not Available Not Available No t Available Plaquenil 200 mg tablet 08/11 completed Medicati on Descript ion: hydroxyc hloroqui ne; Route:or al; refills: 0 Not Available Not Available Not Available nabumeton e 750 mg tablet Take 1 tablet twice a day by oral route. 09/09 completed Not Available Not Available Not Available albuterol sulfate 1.25 mg/3 mL solution for nebulizat ion Inhale 3 mL 3 times a day by inhalati on route. active Not Available Not Available No t Available tretinoin 0.05 % topical cream APPLY A PEA SIZE AMOUNT TO THE FACE 2-3 NIGHTS PER WEEK WITH MOISTURI ZER 2023 active Not Available Not Available Not Avai lable Zofran 4 mg tablet Take 2 tablets twice a day by oral route as needed. active Not Available Not Available No t Available alprazola m 0.25 mg tablet Take 1 tablet 3 times a day by oral route as needed. active Not Available Not Available No t Available Humalog U-100 Insulin 100 unit/mL subcutane ous solution Daily active Duration : 30 days;Ins truction s: Take 15 minutes before meal;Home quency: daily;Me dication Descript ion: insulin lispro; Dosage:a s directed ; Route:hilliard bcutaneo us; refills: 0; Quantity :1 injectio n Not Available Not Available Not Available Celexa 20 mg tablet Daily 08/09 completed Frequenc y: daily;Me dication Descript ion: citalopr am; Dosage:1 ; Route:or al; refills: 5; Quantity :30 tablet Not Available Not Available Not Available Cipro 500 mg tablet Take 1 tablet twice a day by oral route for 7 days. 09/09 completed Not Available Not Available Not Available triamcino lone acetonide 0.1 % topical ointment Apply a thin layer to the AA twice a day x 2 weeks, PRN with flares 2024 active Not Available Not Available Not Avai lable promethaz ine 25 mg tablet Take by oral route. active cut in half, PRN for nausea Not Available Not Available Not Available Synthroid 50 mcg tablet Daily active Frequenc y: daily;Me dication Descript ion: levothyr oxine; Dosage:1 ; Route:or al; refills: 0; Quantity :30 tablet Not Available Not Available Not Available estradiol 0.5 mg tablet Daily 08/09 completed Instruct ions: use one tablet daily;Fr equency: daily;Me dication Descript ion: estradio l; Dosage:1 ; Route:or al; refills: 1; Quantity :90 tablet Not Available Not Available Not Available Lipitor 10 mg tablet Every night at bedtime 04/12 completed Frequenc y: qhs;Medi cation Descript ion: atorvast atin; Dosage:1 ; Route:or al; refills: 0; Quantity :30 tablet Not Available Not Available Not Available Cozaar 50 mg tablet Daily 09/09 completed Frequenc y: daily;Me dication Descript ion: losartan ; Dosage:1 ; Route:or al; refills: 5; Quantity :30 tablet Not Available Not Available Not Available Bactrim 400 mg-80 mg tablet Take 1 tablet every day by oral route for 90 days. 09/09 completed Not Available Not Available Not Available Premarin 0.625 mg/gram vaginal cream INSERT 0.5 APPLICAT OR(S)FUL TWICE A WEEK BY VAGINAL ROUTE 2017 active Not Available Not Available Not Avai lable nitrofura ntoin monohydra te/macroc rystals 100 mg capsule TAKE 1 CAPSULE DAILY 2019 active Not Available Not Available Not Avai lable duloxetin e 60 mg capsule,d elayed release Take 1 capsule every day by oral route. active Not Available Not Available No t Available aspirin 04/12 completed Not Available Not Available Not Available calcium active Not Available Not Avail able Not Available albuterol sulfate 04/12 completed Not Available Not Available Not Available furosemid e 04/12 completed Not Available Not Available Not Available alprazola m 04/12 completed Not Available Not Available Not Available fexofenad ine 1x daily active Not Available Not Available Not Available Nexium active Not Available Not Availa ble Not Available Cymbalta 04/12 completed Not Available Not Available Not Available Lantus Solostar U-100 Insulin active Not Available Not Available Not Available Dexilant 60 mg capsule, delayed release 08/09 completed Medicati on Descript ion: dexlanso prazole; Route:or al; refills: 0 Not Available Not Available Not Available Gvoke HypoPen 1-Pack PRN active Not Available Not Available Not Available aspirin 81 mg capsule Take 1 capsule every day by oral route. active Not Available Not Available No t Available albuterol 90 mcg-budes onide 80 mcg/actua tion HFA aerosol inhaler Inhale by inhalati on route. active PRN Not Available Not Available No t Available Zepbound 15 mg/0.5 mL subcutane ous pen injector Inject 15 mg every week by subcutan eous route. active Not Available Not Available No t Available Vitals Date Recorded Body height Body mass index (BMI) Body weight Provider Name and Address Organization Details Last Updated DateTime 01/02/2020 157.48 cm 51.9 kg/m2 824260.23 g Dianelys Haile [facility] 01/02/2020 11:56:26 Date Recorded Body height Body mass index (BMI) Body weight Systolic And Diastolic Provider Name and Address Organization Details Last Updated DateTime 04/12/2024 157.48 cm 39.9 kg/m2 94478.14 g 117/79 mm[Hg] Mana Anderson [facility] 04/12/2024 11:12:14 Date Recorded Body height Body mass index (BMI) Body weight Provider Name and Address Organization Details Last Updated DateTime 06/25/2020 157.48 cm 51.9 kg/m2 185837.23 g Deseriee Seattle [facility] 06/25/2020 10:43:21 Social History Question Answer Notes LastModified by Organizat ion Details LastModified Time Tobacco Smoking Status Never Smoker Deirdre Buck [facility] 07/15/2017 10:51:06 What Is Your Level Of Caffeine Consumption? Moderate Information not available 08/09/2017 How Much Tobacco Do You Chew? None Information not available 01/02/2019 Marital Status Informatio n not available 08/09/2017 What Was The Date Of Your Most Recent Tobacco Screening? 05/05/2019 Information not available 12/19/2019 How Much Tobacco Do You Smoke? No [email or web address] Information not available 01/02/2020 Has Tobacco Cessation Counseling Been Provided? No Information not available 09/12/2018 Sex: Female Functional Status Question Answer Note LastModified by OrganTaskmit Details LastModified Time Do you use any illicit or recreational drugs? No [email or web address] Information not available 09/09/2023 Do you or have you ever used any other forms of tobacco or nicotine? No Information not available 04/12/2024 What is your level of alcohol consumption? Occasional Information not available 08/09/2017 Mental Status None recorded. Family History Relationship Description Onset Age of this Age Resolved Age Notes LastModified by Organization Details LastModified Time Sister Diabetes mellitus [email or web address] Not available 2017 15:37:13 Sister Malignant tumor of breast 60 had lumpec aaron as well as lymph nodes remove d [email or web address] Not available 04/12/2024 11:09:50 Notes:diabetes, heart diseas e, stroke Medical History Condition Response Diabetes Y Anxiety Disorder Y Chronic Obstructive Pulmonary Disease Y Acid Reflux (GERD) Y Hyperlipidemia Y Cancer N Urinary Tract Infection Y Stroke N Thyroid Problems Y Depression Y Asthma Y Pneumonia Y Sleep Apnea Y High Cholesterol Y Heart Attack ([place]) N Bronchitis Y Deep Vein Thrombosis N Hypertension N Other Skin Condition Y Gynecological History Statement/Question Response Abnormal Pap N Date of Last Colonoscopy Date of Last Mammogram Most Recent Bone Density Sexually Active? Yes Menses Monthly N STIs/STDs N Date of Last Pap Smear 08/09/2017 Current Control Method Hysterectom y Obstetrics History GPAL:G 2 P 2 0 0 0 Type Value Full Term 2 Total 2 Past Encounters Encounter ID Performer Location Encounter Start Date Encounter Closed Date Diagnosis/Indication Diagnosis SNOMED-CT Code Diagnosis ICD10 Code Diagnosis Note [id number] MUNIR LOVING MD [facility]OLOGY [facility] CLOSED [address] [place] [address] 07/15/2017 10:36:45 07/16/2017 11:48:08 History of urinary tract infection 1996026772 107 Z87.440 Backache 151506369 M54.9 Type 1 eloisa betes mellitus 41840963 E10.9 Acute kidney injury 1466 9001 N17.9 [id number] NAEL MAK MD MARKETING PERFORMANCE ANALYST [facility] [address] [place] [address] 08/09/2017 11:08:46 08/09/2017 11:51:37 Routine gynecologic examination done 8800381384 9101 Z01.419 mammo up to date pap done ovaries removed. Screening for malignant neoplasm of colon 894153326 Z12.11 Atrophic vaginitis 75746 000 N95.2 [id number] ALIYAH JUDGE MD [facility] [address] [place] [address],[place] [address] 8 07/14/2018 13:53:43 07/27/2018 15:01:17 Urinary tract infectious disease 77839475 N39.0 [id number] ALIYAH JUDGE MD [address],[place] [address] 8 08/11/2018 15:39:47 08/22/2018 09:13:26 Urinary tract infectious disease 33185936 N39.0 [id number] JOANIE GEORGES JR, MD [facility] [address] [place] [address] 08/22/2018 10:41:42 08/22/2018 11:12:02 Urinary tract infectious disease 69504359 N39.0 [id number] ALIYAH JUDGE MD [facility] [address] [place] [address] 09/12/2018 13:56:42 09/12/2018 14:21:48 Recurrent urinary tract infection 929830409 N39.0 [id number] ALIYAH JUDGE MD [facility] [address] [place] [id number] 09/28/2018 13:25:38 09/28/2018 14:30:30 Recurrent urinary tract infection 161142588 N39.0 [id number] ALIYAH JUDGE MD SURGERY SCHEDULE [address] [place] [address] 10/04/2018 14:35:45 10/04/2018 14:37:38 [id number] ALIYAH UJDGE MD [facility] [address] [facility] [address] [place] [address] 0 01/02/2019 13:41:50 01/02/2019 14:09:20 Recurrent urinary tract infection [id number] N39.0 [id number] ALIYAH JUDGE MD [facility] [address] [facility] [address] [address] 05/05/2019 11:26:04 05/05/2019 12:44:51 Recurrent urinary tract infection 571686021 N39.0 [id number] NAEL MAK MD MARKETING PERFORMANCE ANALYST [facility] CLOSED [address] [place] [address] RD[address] [place] [address] 08/14/2019 11:02:50 08/14/2019 12:55:04 Routine gynecologic examination done [id number] 9101 Z01.419 Pap is UTD, last done in 2017. Prior hysterecto my. This should be good for 5 years. Exam normal today. Screening for malignant neoplasm of breast 521161206 Z12.31 mammogram needs to be updated. Gets these done at [facility]. Will request a copy of her last mammogram from [facility]. Atrophic vaginitis 57640 000 N95.2 -Educated patient to try and use coconut oil to help with vaginal dryness. Patient has a vaginal estrogen cream she can use this which will aid in the symptoms she is discussing . Or may try the coconut well. [id number] ALIYAH JUDGE MD [facility] [address] [place] [address] 09/05/2019 11:27:49 09/05/2019 12:27:31 Recurrent urinary tract infection 451232693 N39.0 [id number] MD LILA PIPER [facility] [address] [place] [address] 01/02/2020 11:25:49 01/02/2020 12:15:28 Recurrent urinary tract infection 425042970 N39.0 [id number] ALIYAH JUDGE MD [facility] [address] [place] [address] 06/25/2020 10:17:21 06/25/2020 10:57:11 Recurrent urinary tract infection 232280233 N39.0 [id number] MEGAN WATSON [facility] [address] [place] [address] 09/09/2023 13:36:40 09/09/2023 14:29:00 Multiple benign melanocytic nevi 303974486 D22.5 - Benign moles seen on exam today - SPF 30 or higher broad-spec trum sunscreen recommende d with re-applica tion every 2 hours - Discussed sun protection measures, including wide-brimm ed hat, sun-protec tive clothing, and avoidance of sun during peak hours of 10am-4pm - Avoid tanning beds as these can increase the chances of all 3 types of skin cancer - Instructed to monitor for changes and to call us for appointmen t with any changing or worrisome lesions Seborrheic keratosis 394 967487 L82.1 - Benign overgrowth s of skin - Hereditary Senile angioma 2430347 I 78.1 - Benign blood vessel growths - Hereditary Solar lentigo 50348443 L 81.4 - Benign brown spots - Sun-induce d Nummular eczema 54215912 L30.0 Improved with Rx TAC 0.1% topical ointment. Ok to stop using Rx TAC.Rec to re-start Rx TAC if pnt has a flare up again.Cont gentle skin care.Call with questions or concerns. [id number] ELISHA NEW [facility] [address] [place] [address] 04/12/2024 10:52:06 04/12/2024 12:53:30 Cyst of vulva 01497978 N90.7 Informed no need to do anything about the 2 sebaceous cysts on the right, outer labia majora unless they bother her. I recommende d she schedule an annual exam. [id number] WILL WHEAT R, AUTOMOTIVE MECHANICAL ENGINEER [facility] [address] [place] [address] 11/13/2024 14:00:01 11/13/2024 14:53:11 Multiple benign melanocytic nevi 923644474 D22.5 - Benign moles seen on exam today - SPF 30 or higher broad-spec trum sunscreen recommende d with re-applica tion every 2 hours - Discussed sun protection measures, including wide-brimm ed hat, sun-protec tive clothing, and avoidance of sun during peak hours of 10am-4pm - Avoid tanning beds as these can increase the chances of all 3 types of skin cancer - Instructed to monitor for changes and to call us for appointmen t with any changing or worrisome lesions Seborrheic keratosis 394 301948 L82.1 - Benign overgrowth s of skin - Hereditary Senile angioma 4620465 I 78.1 - Benign blood vessel growths - Hereditary Solar lentigo 20138816 L 81.4 - Benign brown spots - Sun-induce d Nummular eczema 32594242 L30.0 Controlled with Rx TAC 0.1% topical ointment. Will RF TAC 0.1% ointment to use BID x 2 weeks, PRN with flares.Con t gentle skin care.Call with questions or concerns. Milia 789484201 L72.0 L53.8 Benign small cysts. Seen commonly in smokers, areas of trauma, and seasonal allergies. Will rx tretinoin 0.1% cream to use qhs to affected areas. Discussed dryness as side effect, can decrease frequency if dryness occurs. Will perform acne surgery to try and extract some of the milia. Health Concerns Section Related Observation LastModified by Organization Detai ls LastModified Time None Recorded Concern Status LastModified by Organization Details LastModified Time None Recorded Advance Directives Directive None Recorded Payers Insurance Date Sequence Insurance Name Policy Number Policy Mcclellan Covered Member ID Mcclellan Member ID Guarantor Name 11/10/2024 1 [place] [id number] A Angel Joshua Cayetano [id number] Lena Monteiro Notes Date Note Type Note Provider Name and Address Organization Details Recorded Time 01/02/2020 text/html 64-year-old matteo mitchell in the office for follow-up evaluation of recurrent urinary infections. She denies bothersome symptoms. She takes daily suppressive Macrobid and uses Premarin vaginal cream. She voids every 2 hours with nocturia once nightly. No hematuria or dysuria. ALIYAH JUDGE MD [facility] [place], [address], [facility] 02/05/2020 12:59:15 06/25/2020 text/html 64-year-old matteo mitchell in the office for follow-up evaluation of recurrent urinary infections. She voids every 2 hours with nocturia one to 2 times nightly. No gross hematuria or dysuria. She has been taking suppressive Macrobid and using topical vaginal estrogen cream. She requests to change from Macrobid to Bactrim for suppression due to potential pulmonary risks of long-term Macrobid. ALIYAH JUDGE MD [facility] [place], [address], [facility] 06/28/2020 20:12:18 09/09/2023 text/html RashB/l legsongo ing x 3 weeksCurrently tx with TACImproved since last visitNoticing peeling of the skin but feels this is not nearly as red as it was 2 weeks ago FSEOver the entire bodyOver 6 years since last FSENo personal hx of skin cxNo areas of concern WILL BATES, AUTOMOTIVE MECHANICAL ENGINEER [address] [place], [address], [facility] 09/09/2023 14:27:42 04/12/2024 text/html 68yo presents fo r a growth on her vulva, says it has been there for a while but can tell more recently that it has gotten bigger. Stated she felt it and it was lumpy. She';s lost a lot of weight over the past year. It started out as a small bump on her right labia but feels that it has gotten larger. No other concerns. Due for pap/annual exam but she does not want to do that today ELISHA ESTIVEN NEW, MEGAN-NP [address] [place], [address], [facility] 04/12/2024 12:35:16 11/13/2024 text/html Here for a full body skin examination - last skin check: 09/2023- no history of skin cancer- spots of concern today: I have some millia on my face and a spot on the back of my head. WILL BATES, MEGAN [address] [place], [address], [facility] 11/13/2024 15:39:24 OBGyn Episode No OBEpisode recorded.
--- OUTSIDE RECORDS SUMMARY | 2025-05-09 14:29 | XMS_ITS | Encounter Summary ---
Author Organization Healthcare Address [address] [place] [address] Care Team Providers Care Eating Disorder Psychologist Name Role Phone Simone To MD Primary Care Provider Genia vailable Reason for Visit * Reason Comments Med Refill Encounter Details Date Type Department Care Team (Late st Contact Info) Description 03/21/2025 Refill [facility] [address] [place] [address] Nikolay Carson MD [address] [place] [address] Sjogren syndrome with keratoconjunctivitis (CMS/HCC) Social History Tobacco Use Types Packs/Day Years Used Date Smoking Tobacco: Never Passive Smoke Exposure: Past Smokeless Tobacco: Never Alcohol Use Standard Drinks/Week Comments Yes 4 (1 standard drink = 0.6 oz pur e alcohol) social PHQ-2 Answer Date Recorded Patient Health Questionnaire-2 Score 0 01/03/2025 Comments Unknown Sex and Gender Information Value Date Recorded Sex Assigned at Not on file Legal Sex Female 7:56 PM EDT Gender Identity Not on file Sexual Orientation Not on file documented as of this encounter Miscellaneous Notes * Telephone Encounter - Juan Remy, PharmD - 03/22/2025 7:14 AM EDT 1 medication(s) has been approved per protocol. documented in this encounter Plan of Treatment Upcoming Encounters Date Type Department Care Team (Late st Contact Info) Description 07/09/2025 11:10 AM EDT Office Visit [facility] Medicine Specialties [address] [place] [address] Nikolay Carson MD [address] [place] [address] documented as of this encounter Visit Diagnoses Diagnosis Sjogren syndrome with keratoconjunctivitis (CMS/HCC) documented in this encounter Additional Health Concerns Assessment Noted Time A fall risk assessment has been complete d for the patient 01/03/2025 12:43 PM EST A Body Mass Index follow-up plan has been documented for the patient 01/06/2025 1:06 AM EST documented as of this encounter Care Teams Eating Disorder Psychologist Relationship Specialty Start Date End Date Simone To MD PCP - General Family Medicine 06/19/22 documented as of this encounter
--- OUTSIDE RECORDS SUMMARY | 2025-05-09 14:29 | XMS_ITS | Continuity of Care Document ---
Author Organization [facility] & [place], [facility] [address] Address [address] [place] [address] Care Team Providers Care Sustainability Analyst Name Role Phone NICKY CISSE Primary Care Provider Assessment No assessment recorded. Plan of Treatment Reminders Order Date Submit Date Provider Last Modified By Organization Details Last Modified Time Details Appointments None record ed. Lab None record ed. Referral None record ed. Procedures None record ed. Surgeries None record ed. Imaging None record ed. Medication Orders None record ed. Patient TargetsNo targets recorded. Patient InstructionsNo instructions recorded. Reason for Referral None Reported. Results Created Date Observation Date Name Description Value Unit Range Abnormal Flag Note LastModifiedBy Organization Detail LastModifiedTime 03/07/2003/07/2025 audio gram No observ ation record ed. [email or web address] Not Available 2024 14:52:07 Result Notes None recorded. Problems Name Problem SNOMED Code Status Onset Date Resolution Date Notes Provider Name and Address Organization Details Recorded Time Sensorineural hearing loss 68752833 Active 2024 MIGUEL VELAZQUEZ, AUD [address] [facility], [place], [address] , [facility] & [place] 14:50:25 Problem Notes None recorded. Medical Equipment None Reported. Allergies No known drug allergies Medications Name Sig Start Date Stop Date Status Note LastModified by Organization Details LastModified Time tretinoin 0.1 % topical cream APPLY A PEA SIZED AMOUNT OF CREAM TOPICALLY TO ENTIRE FACE AT NIGHT BEFORE BED(MAX 1 GM PER DAY) active Not Available Not Available Not Available cephalexin 500 mg capsule TAKE 1 CAPSULE BY MOUTH 4 TIMES DAILY FOR 7 DAYS active Not Available Not Available N ot Available triamcinolon e acetonide 0.1 % topical ointment APPLY A THIN LAYER OF OINTMENT TOPICALLY TO AFFECTED AREA TWICE DAILY FOR 2 WEEKS NEEDED WITH FLARES active Not Available Not Available No t Available Wegovy 2.4 mg/0.75 mL subcutaneous pen injector INJECT 2.4 MG SUBCUTANEOU SLY TO APPROPRIATE AREA DIRECTED ONCE A WEEK active Not Available Not Available Not Available Zepbound 15 mg/0.5 mL subcutaneous pen injector INJECT 0.5 ML UNDER THE SKIN ONCE A WEEK DIRECTED active Not Available Not Available Not Available Vitals None Recorded Social History None recorded. Functional Status None recorded. Mental Status None recorded. Family History Nothing Reported. Medical History No medical history recorded. Gynecological HistoryNo gynecological history recorded. Obstetrics History GPAL:G 0 P 0 0 0 0 Past Encounters Encounter ID Performer Location Encounter Start Date Encounter Closed Date Diagnosis/Indication Diagnosis SNOMED-CT Code Diagnosis ICD10 Code Diagnosis Note [id number] CARLIE JAR[facility] [place] [address] 03/07/2025 14:36:23 03/07/2025 14:52:15 Sensorineural hearing loss 66225074 H90.3 [id number] [facility] [place] [address] 04/04/2025 13:07:48 04/04/2025 13:16:19 Sensorineural hearing loss 84989397 H90.3 Health Concerns Section Related Observation LastModified by Organization Detai ls LastModified Time None Recorded Concern Status LastModified by Organization Details LastModified Time None Recorded Payers Encounter Date Sequence Insurance Name Policy Number Policy Mcclellan Covered Member ID Mcclellan Member ID Guarantor Name 04/04/2025 1 [employer] [id number] Kell Ortiz Tanja Cayetano [id number] Lena Monteiro Notes Date Note Type Note Provider Name and Address Organization Details Recorded Time 04/04/2025 text/html Ms. Monteiro was seen today for a hearing aid fitting. CARLIE JARRETT [address] [facility], [place], [address], [facility] - [place] & [place] 04/04/2025 13:18:57 OBGyn Episode No OBEpisode recorded.
--- OUTSIDE RECORDS SUMMARY | 2025-05-09 14:29 | XMS_ITS | Clinical Summary ---
Demographics Address [facility] [address] [place] [address] Home Phone Mobile Phone Email Address Preferred Language en Marital Status Pentecostal Affiliation Unknown Race White Ethnic Group Not or Lati no Author Organization [facility] Address [address] [place] [address] Care Team Providers Care Building Specialist Name Role Phone Simone To MD Primary Care Provider Genia vailable Allergies Active Allergy Reactions Criticality Noted Date Comments Lisinopril Cough Low 04/26/2023 Medications Insulin Lispro (HumaLOG) 100 UNIT/ML injection vial Inject under the skin 3 (three) times a day with meals. Active insulin glargine (Lantus) 100 UNIT/ML injection vial Inject under the skin every night. Active levothyroxine (Synthroid, Levoxyl) 50 MCG tablet Take 1 tablet (50 mcg) by mouth daily before breakfast. Active furosemide (Lasix) 40 MG tablet Take by mouth. Activ e esomeprazole (NexIUM) [address] capsule Take 1 capsule (40 mg) by mouth daily before breakfast. Do not open capsule. Active montelukast (Singulair) 10 MG tablet Take 1 tablet (10 mg) by mouth nightly. Active albuterol 108 (90 Base) MCG/ACT inhaler Inhale 2 puffs every 6 hours as needed for wheezing. Active atorvastatin (Lipitor) 20 MG tablet Take 2 tablets (40 mg) by mouth daily. Active FEXOFENADINE HCL PO Take by mouth. Active aspirin 81 MG EC tablet Take 1 tablet (81 mg) by mouth daily. Active Gvoke HypoPen 1-Pack 1 MG/0.2ML solution auto-injector INJECT 1 MG UNDER THE SKIN INTO THE APPROPRIATE AREA DIRECTED ONE TIME NEEDED FOR SEVERE HYPOGLYCEMIA FOR UP TO 1 DOSE 023 Active ondansetron ODT (Zofran-ODT) 4 MG disintegrating tablet 023 Active promethazine (Phenergan) 25 MG tablet Active ALPRAZolam (Xanax) 0.25 MG tablet Active Premarin vaginal cream 05/29 Active tretinoin (Retin-A) 0.05 % cream 023 Active albuterol (2.5 MG/3ML) 0.083% nebulizer solution Active Airsupra 90-80 MCG/ACT aerosol Inhale 90 mL/mL 1 (one) time each day. Active Continuous Glucose Sensor (Dexcom G7 Sensor) misc Active insulin glargine-yfgn 100 UNIT/ML injection pen INJECT 18 UNITS SUBCUTANEOUSLY NIGHTLY DIRECTED. IN CASE OF PUMP FAILURE, TITRATE FOR MAX DAILY DOSE OF 50 UNITS Active nitrofurantoin, macrocrystal-monohydrat e, (Macrobid) 100 MG capsule Active sulfamethoxazole-trimet hoprim (Bactrim DS) 800-160 MG tablet Active Zepbound 15 MG/0.5ML solution auto-injector 06/14 Active triamcinolone (Kenalog) 0.1 % ointment Active HYDROcodone-acetaminoph en ([place]) 5-325 MG tablet Take 1 tablet (5 mg of hydrocodone) by mouth every 6 (six) hours if needed for moderate pain. 10 tablet Active Additional Information Patient not taking.Reported on 08/10/2024 meloxicam (Mobic) 15 MG tablet Take 1 tablet (15 mg) by mouth 1 (one) time each day. Active DULoxetine (Cymbalta) [address] capsuleIndications:Fibr omyalgia Take 1 capsule (60 mg) by mouth daily. DO NOT CRUSH OR CHEW 90 capsule 1 Active pilocarpine (Salagen) 5 MG tabletIndications:Sjogr en syndrome with keratoconjunctivitis (CMS/HCC) TAKE 1 TABLET THREE TIMES A DAY 270 tablet 1 Active Active Problems Problem Noted Date Diagnosed Date Trigger finger, left middle finger 06/22/2024 Encounters Date Type Department Care Team Description 03/21/2025 Refill [facility] [address] [place] [address] Nikolay Carson MD Sjogren syndrome with keratoconjunctivitis (CMS/HCC) from Last 3 Months Immunizations Immunization Administration Dates Next Due Influenza, high-dose, quadrivalent 08/25/2024,,08/21/2022 Influenza, injectable, MDCK, preservative free, quadrivalent 08/08/2020,08/18/2018 Influenza, injectable, quadr ivalent, preservative free 09/03/2021,08/29/2016 Pneumococcal 20-umu Conj Vaccine 12/07/2022 Pneumococcal, Unspecified 06/26/2015 Tdap 05/14/2024 Family History Medical History Relation Name Comments Diabetes Sister Mony Javier Relation Name Status Comments Sister Mony Javier Social History Tobacco Use Types Packs/Day Years Used Date Smoking Tobacco: Never Passive Smoke Exposure: Past Smokeless Tobacco: Never Tobacco Cessation:Counseling Given: Not Answered Alcohol Use Standard Drinks/Week Comments Yes 4 (1 standard drink = 0.6 oz pur e alcohol) social PHQ-2 Answer Date Recorded Patient Health Questionnaire-2 Score 0 01/03/2025 Comments Unknown Sex and Gender Information Value Date Recorded Sex Assigned at Not on file Legal Sex Female 7:56 PM EDT Gender Identity Not on file Sexual Orientation Not on file Last Filed Vital Signs Vital Sign Reading Time Taken Comments Blood Pressure 93/63 01/03/2025 12:39 PM EST Pulse 81 01/03/2025 12:39 PM EST Temperature 36.6 C (97.9 F) 01/03/2025 12:39 PM EST Respiratory Rate 16 01/03/2025 12:39 PM EST Oxygen Saturation 96% 01/03/2025 12:39 PM EST Inhaled Oxygen Concentration - - Weight 100 kg (220 lb 14.4 oz) 01/03/2025 12:39 PM EST Height 157.5 cm (5' 2 ) 01/03/2025 12:39 PM EST Body Mass Index 40.4 01/03/2025 12:39 PM EST Plan of Treatment Upcoming Encounters Date Type Department Care Team (Late st Contact Info) Description 07/09/2025 11:10 AM EDT Office Visit [facility] [address] [place] [address] Nikolay Carson MD [address] [place] [address] Health Maintenance Due Date Last Done Comments [facility]-Bone Density Scan 1956 [facility]-Hepatitis C Screening 1956 [facility]-Infant/Child/Adol SDOH Screenings 1956 [facility]- SDOH Screenings 1974 [facility]-Adult SDOH Screenings 1974 CT Colonography 2001 Colonoscopy 2001 FIT-DNA 2001 FIT 2001 FOBT 2001 Sigmoidoscopy 2001 [facility]-Colorectal Cancer Screening 2001 [facility]-Breast Cancer Screening 2006 [facility]-Zoster Vaccines (1 of 2) 2006 [facility]-RSV Vaccine: 60+ Years or (1 - Risk 60-74 years 1-dose series) 2016 [id number] Vaccine (4 - 2023- season) 2024 07/03/2021, 01/23/2021, 12/26/2020 [facility]-Influenza Vaccine (#1) 07/02/202508/25, 08/19/2023, 08/21/2022, Additional history exists [facility]-Depression Screening 01/03/2026 01/03/2025 [facility]-DTaP,Tdap,and Td Vaccines (2 - Td or Tdap) 05/14/2034 05/14/2024 [facility]-Pneumococcal Vaccine: 50+ Years Completed 12/07/2022, 06/26/2015 [facility]-Obesity Intervention Completed 025, 01/03/2025, 08/10/2024, Additional history exists HPV Vaccines Aged Out No longer eligi ble based on patient's age to complete this topic [facility]-HIB Vaccines Aged Out No longer e ligible based on patient's age to complete this topic [facility]-Hepatitis A Vaccines Aged Out No longer eligible based on patient's age to complete this topic [facility]-IPV Vaccines Aged Out No longer e ligible based on patient's age to complete this topic [facility]-Rotavirus Vaccines Aged Out No lo nger eligible based on patient's age to complete this topic [place] [address] Care Teams Building Specialist Relationship Specialty Start Date End Date Simone To MD PCP - General Family Medicine 06/19/22
--- OUTSIDE RECORDS SUMMARY | 2025-05-09 14:29 | XMS_ITS | Data Portability ---
Author Organization [facility] & [facility] Address [address] [place] [id number] Care Team Providers Care Enterprise Cloud Architect Name Role Phone NICKY CISSE Primary Care [...] audio gram No observ ation record ed. Not Available 2024 14:52:07 Result Notes None recorded. Problems Name Problem SNOMED Code Status Onset Date Resolution Date Notes Provider Name and Address Organization Details Recorded Time Sensorineural hearing loss 61906146 Active 2024 MIGUEL VELAZQUEZ, AUD [address] [facility], [place], [address] , [facility] [place] 14:50:25 Problem Notes None recorded. Medical Equipment [...] SNOMED-CT Code Diagnosis ICD10 Code Diagnosis Note [id number] CARLIE J[facility] [place] [id number] 07/22/2022 10:29:51 07/22/2022 10:38:06 Sensorineural hearing loss 85832030 H90.3 [id number] [facility]LIE [facility] [place] [id number] 03/07/2025 14:36:23 03/07/2025 14:52:15 Sensorineural hearing loss [id number] H90.3 [id number] CARLIE [facility] [place] [id number] 04/04/2025 13:07:48 04/04/2025 13:16:19 Sensorineural hearing loss [id number] H90.3 Health Concerns Section Related Observation LastModified by Organization Detai ls LastModified Time None Recorded Concern Status LastModified by Organization Details LastModified Time None Recorded Advance Directives Directive None Recorded Payers Insurance Date Sequence Insurance Name Policy Number Policy Mcclellan Covered Member ID Mcclellan Member ID Guarantor Name 07/21/2019 1 [facility] ([facility]) [id number] Lena Monteiro 04/01/2025 1 [facility] (PPO) [id number] Angel Monteiro [id number] Lena Monteiro Notes Date Note Type Note Provider Name and Address Organization Details Recorded Time 07/22/2022 text/html Ms. Monteiro was se en today for a hearing aid service. MIGUEL VELAZQUEZ, CARLIE [address] , [place], [address], [facility] [place] 07/22/2022 10:37:58 03/07/2025 text/html Ms. Monteiro was se en today for an audiologic evaluation due to long-standing hearing loss bilaterally. She is a long-standing hearing aid user, and she is interested in upgrading to new devices. She reports difficulty hearing well in background noise and in social settings. Otoscopic inspection was unremarkable bilaterally. Audiometric testing revealed a mild, sloping to moderate, mid through high freq SNHL bilaterally with good word rec scores. 1-Discussed findings with Ms. Monteiro. 2-Rec new hearing aids bilaterally. 3-F/u when hearing aids arrive. MIGUEL VELAZQUEZ, CARLIE [address], [place], [address], [facility] [place] 03/07/2025 14:52:10 04/04/2025 text/html Ms. Monteiro was se en today for a hearing aid fitting. MIGUEL VELAZQUEZ, CARLIE [address] , [place], [address], [facility] [place] 04/04/2025 13:18:57 OBGyn Episode No OBEpisode recorded.
--- NOTE | 2025-05-09 14:32 | XR_ITS ---
FINAL REPORT CLINICAL HISTORY: back pain COMPARISON: None FINDINGS: THORACIC SPINE: AP and lateral views of the thoracic spine were obtained. There is no prior exam for comparison. There is no acute fracture or malalignment. Mild hypertrophic changes of degenerative disc disease are present in the lower thoracic spine. Vertebral body height is preserved. Paraspinal soft tissues are within normal limits. IMPRESSION: Mild degenerative change is present in the lower thoracic spine without acute bony abnormality. Reviewed, Interpreted and Dictated by Darius Connors MD Transcribed by Carissa Hansen Authenticated and [facility]
--- NOTE | 2025-05-09 14:32 | XR_ITS ---
FINAL REPORT TECHNIQUE: 3 views CLINICAL HISTORY: neck pain COMPARISON: None FINDINGS: CERVICAL SPINE: AP, lateral and odontoid views of the cervical spine were obtained. There is no prior exam for comparison. There is no acute fracture or malalignment. There is moderately advanced disc space narrowing at the C3-4, C4-5, and C5-6 levels. Small posterior osteophytes are present at the C3-4 and C5-6 levels. Vertebral body height is preserved. The precervical soft tissues are normal. IMPRESSION: Degenerative change as described, without acute bony abnormality. Reviewed, Interpreted and Dictated by Darius Connors MD Transcribed by Carissa Hansen Authenticated and [facility]
== END 2025-05-09 23:59 | disposition home or self-care (01) ==
LOC: RAD 14:27
PROVIDERS: PCP Family Medicine; Visit Provider Family Medicine
DX: M51.34 Other intervertebral disc degeneration, thoracic region (principal); M50.31 Other cervical disc degeneration, high cervical region; M50.321 Other cervical disc degeneration at C4-C5 level; M50.322 Other cervical disc degeneration at C5-C6 level
CPT/HCPCS: 72040; 72070

== ENCOUNTER 2025-06-06 12:57 | Outpatient (CLI) | payer BC, SELFPAY ==
--- OUTSIDE RECORDS SUMMARY | 2018-01-14 20:00 | XMS_ITS | Encounter Summary ---
Author Organization [facility] Address [address] [place] [address] Care Team Providers Care Launderer Hand Name Role Phone Nicolette Gates MD Primary Care Provider [phone] Reason for Referral * Hospital - Outpatient (Routine) - Closed Specialty Diagnoses / Procedures Referred By Contac t Referred To Contact Sleep Medicine Diagnoses GUILLERMO (obstructive sleep apnea) Nocturnal hypoxemia Procedures Polysomnography 4 or More Parameters Polysomnography 4 or More Parameters With CPAP Alin Walter MD Phone: tel: fax: [facility] [address] [address] Phone: tel: fax: Referral ID Status Reason Start Date Expiration Date Visits Re quested Visits Authorized [id number] Closed 12/14/2017 02/24/2018 1 1 Reason for Visit * Hospital - Outpatient (Routine) - Closed Specialty Diagnoses / Procedures Referred By Contac t Referred To Contact Sleep Medicine Diagnoses GUILLERMO (obstructive sleep apnea) Nocturnal hypoxemia Procedures Polysomnography 4 or More Parameters Polysomnography 4 or More Parameters With CPAP Alin Walter MD Phone: tel: fax: [facility] [address] [address] Phone: tel: fax: Referral ID Status Reason Start Date Expiration Date Visits Re quested Visits Authorized [id number] Closed 12/14/2017 02/24/2018 1 1 Encounter Details Date Type Department Care Team (Late Contact Info) Description 01/14/2018 8:00 PM EDT Hospital Encounter [facility] [address] [place] [address] Alin Walter MD [address] [place] [address] GUILLERMO (obstructive sleep apnea); Nocturnal hypoxemia Social [...] Department Care Team (Late Contact Info) Description 08/31/2025 12:30 PM EDT Office Visit [facility] [address] [place] [phone] Emiliano Austin MD [address] [place] [address] documented as of this encounter Procedures Procedure [...] documented as of this encounter Care Teams Launderer Hand Relationship Specialty Start Date End Date Nicolette Gates MD [address] [place] [address] PCP - General 06/25/15 05/31/19 documented as of this encounter
--- OUTSIDE RECORDS SUMMARY | 2025-06-06 12:59 | XMS_ITS | Encounter Summary ---
Author Organization [facility] Address [address] [id number] Care Team Providers Care Sports Official Name Role Phone Simone To MD Primary Care Provider [phone]- [phone] Reason for Visit * Reason Comments Med Refill Encounter Details Date Type Department Care Team (Late st Contact Info) Description 03/29/2023 Refill [facility] [address] [place] [address] Rossy Rome PA Class 3 severe obesity due to excess calories with serious comorbidity and body mass index (BMI) of 45.0 to 49.9 in adult Social History Tobacco Use Types Packs/Day Years Used Date Smoking Tobacco: Never Smokeless Tobacco: Never Alcohol Use Standard Drinks/Week Comments Yes 5 (1 standard drink = 0.6 oz pur e alcohol) social Comments No Sex and Gender Information Value Date Recorded Sex Assigned at Not on file Legal Sex Female 12:29 PM EDT Gender Identity Not on file Sexual Orientation Not on file documented as of this encounter Plan of Treatment Upcoming Encounters Date Type Department Care Team (Late st Contact Info) Description 08/31/2025 12:30 PM EDT Office Visit [facility] [address] [place] [address] Emiliano Austin MD [address] [place] [address] documented as of this encounter Visit Diagnoses Diagnosis Class 3 severe obesity due to excess calories with serious comorbidity and body mass index (BMI) of 45.0 to 49.9 in adult documented in this encounter Care Teams Sports Official Relationship Specialty Start Date End Date Simone To MD PCP - General Family Medicine 07/28/22 documented as of this encounter
--- OUTSIDE RECORDS SUMMARY | 2025-06-06 12:59 | XMS_ITS | Clinical Summary ---
Demographics Address [facility] [address] [place] [address] Home Phone Mobile Phone Email Address Preferred Language en Marital Status Amish Affiliation Unknown Race White Ethnic Group Not or Lati no Author Organization [facility] Address [address] [place] [address] Care Team Providers Care Veterinary Medical Officer Name Role Phone Simone To MD Primary [...] (Kenalog) 0.1 % ointment Active HYDROcodone-acetaminoph en ([place]) 5-325 MG tablet Take 1 tablet (5 [...] Type Department Care Team Description 03/21/2025 [facility]ill [facility] [address] [place] [address] Nikolay Carson MD Sjogren syndrome [...] Description 07/09/2025 11:10 AM EDT Office Visit [facility] [address] [place] [address] Nikolay Carson MD [address] [place] [address] Health Maintenance Due Date Last [...] - Risk 60-74 years 1-dose series) 2016 [id number] Vaccine (4 - 2023- season) 2024 07/03/2021, [...] to complete this topic [place] [address] Care Teams Veterinary Medical Officer Relationship Specialty Start Date End Date Simone To MD PCP - General Family Medicine 06/19/22
--- OUTSIDE RECORDS SUMMARY | 2025-06-06 12:59 | XMS_ITS | Clinical Summary ---
Author Organization [facility] Address [address] [place] [address] Care Team Providers Care Aoc Director Intelligence Officer Name Role Phone Simone To MD Primary Care Provider [phone] Allergies Active Allergy Reactions Criticality Noted Date Comments Lisinopril Cough Low 04/26/2023 Medications aspirin 81 MG tablet Take by mouth. 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 90 capsule 3 06/14/20 17 Active fexofenadine (BRIE) 180 MG tablet Take 1 tablet by mouth Daily for 90 days. 30 tablet 3 08/01/20 20 Active Insulin Infusion Pump (T:slim X2 Ins Pump/Control-IQ) device Basal 12a 0.9, 4a 0.95, 7:30a 1.1, 5p 1.1, 8:30p 1.0; carb ratio 1:10, correction 40, target 100, AIT 5h; changes inf. sets q3 days Active montelukast (SINGULAIR) 10 MG tablet Take 1 tablet by mouth Daily. 90 tablet 3 09/10/20 21 Active Premarin 0.625 MG/GM vaginal cream Insert 2 g into the vagina. 01/29/20 22 Active ALPRAZolam (XANAX) 0.25 MG tablet Take 1 tablet by mouth At Night As Needed. 03/05/20 23 Active DULoxetine (CYMBALTA) 60 MG capsule Take 1 capsule by mouth Daily. 01/21/20 24 Active Airsupra 90-80 MCG/ACT aerosol Inhale 90 mL/mL Daily. 06/06/20 24 Active HYDROcodone-acetam inophen (NORCO) 5-325 MG per tablet Take 1 tablet by mouth Every 6 (Six) Hours As Needed for Mild Pain. 12/25/19 25 Active meloxicam (MOBIC) 15 MG tablet Take 1 tablet by mouth Daily. 12/25/19 25 Active ondansetron ODT (ZOFRAN-ODT) [address] 1 tablet on the tongue Every 8 (Eight) Hours As Needed for Nausea. 10/26/20 24 Active albuterol sulfate HFA 108 (90 Base) MCG/ACT inhalerIndications :Simple chronic bronchitis USE 2 INHALATIONS EVERY 4 HOURS NEEDED FOR WHEEZING 54 g 3 03/22/20 25 Active promethazine (PHENERGAN) 25 MG tablet TAKE ONE-HALF (1/2) TO ONE TABLET EVERY 8 HOURS NEEDED FOR NAUSEA 15 tablet 03/22/20 25 Active Tirzepatide-Weight Management (Zepbound) 15 MG/0.5ML solution auto-injectorIndic ations:Class 3 severe obesity due to excess calories with serious comorbidity and body mass index (BMI) of 40.0 to 44.9 in adult Inject 0.5 mL under the skin into the appropriate area as directed 1 (One) Time Per Week. 6 mL 2 03/30/20 25 Active HumaLOG 100 UNIT/ML injectionIndicatio ns:Type 1 diabetes mellitus with hyperglycemia Using an insulin pump as directed with maximum daily dose of 60 units 60 mL 3 03/30/20 25 Active atorvastatin (LIPITOR) 40 MG tabletIndications: Hypercholesterolem ia Take 1 tablet by mouth Daily. 90 tablet 3 03/30/20 25 Active Continuous Glucose Sensor (Dexcom G7 Sensor) miscIndications:Ty pe 1 diabetes mellitus with hyperglycemia Use 1 each Every 10 (Ten) Days. 9 each 4 03/30/20 25 Active Scopolamine 1 MG/3DAYS patchIndications:C lass 3 severe obesity due to excess calories with serious comorbidity and body mass index (BMI) of 40.[address] 1 patch on the skin as directed by provider Every 3 (Three) Days. 4 each 03/30/20 25 Active Glucagon (Gvoke HypoPen 1-Pack) 1 MG/0.2ML solution auto-injectorIndic ations:Type 1 diabetes mellitus with hyperglycemia Inject 1 mg under the skin into the appropriate area as directed As Needed (no). 0.2 mL 3 03/30/20 25 Active insulin glargine (LANTUS, SEMGLEE) 100 UNIT/ML injectionIndicatio ns:Type 1 diabetes mellitus with hyperglycemia Inject 18 Units under the skin into the appropriate area as directed Every Night. 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 90 tablet 1 06/04/20 25 026 Active metFORMIN ER (GLUCOPHAGE-XR) 500 MG 24 hr tabletIndications: Type 1 diabetes mellitus with hyperglycemia Take 1 tablet by mouth Daily With Breakfast for 180 days. 90 tablet 1 03/30/20 25 025 Discontin ued(Reord er) Active Problems Problem Noted Date Diagnosed Date Class 3 severe obesity due t o excess calories with serious comorbidity and body mass index (BMI) of 40.0 to 44.9 in adult 03/04/2023 Assessment & Plan (03/30/2025 11:59 AM EDT): -Continue Zepbound 15 mg weekly -Add metformin xr 500mg daily to see if it helps with weight loss -Recommend 150 minutes of physical activity per week -Continue to watch diet Assessment & Plan (09/14/2024 2:21 PM EST): -She continues to lose weight with Zepbound -Continue Zepbound 15 mg weekly -Recommend 150 minutes of physical activity per week -Continue to watch diet Assessment & Plan (06/08/2024 2:21 PM EDT): -Patient with 7% of body weight weight loss on Zepbound but due to supply issues and recent steroid use has again gained weight -Recommend switching back to Zepbound 15 mg weekly -Follow-up weighted next visit Assessment & Plan (01/28/2024 1:26 PM EDT): Obesity is a chronic, progressive disease resulting in metabolic, biomechanical and psychosocial dysfunction. Comorbidities for this patient include osteoarthritis and increased risk for cardiovascular disease. A reduction of current body weight will improve health parameters, specifically reduce her risk for cardiovascular disease. Patient with good response to GLP-1 agonist with an 80 pound weight loss thus far although weight loss has plateaued. Continue Zepbound 15 mg weekly Adjusted pump settings to reduce frequency of lows which require her to eat simple sugars/carbohydrates Recommend increasing physical activity Assessment & Plan (07/30/2023 10:13 AM EDT): -Continue Wegovy 2.4 mg weekly -Recommend adding resistance training to help with weight loss Asthma 02/24/2018 Generalized abdominal pain 06/14/2017 Essential hypertension 06/14/2017 Pharyngoesophageal dysphagia 11/10/2016 COAD (chronic obstructive airways disease) 11/10 Acid reflux 07/20/2016 LUCIO positive 07/20/2016 Cough 07/20/2016 Depression 07/20/2016 Hypercholesterolemia 07/20/2016 Assessment & Plan (03/30/2025 11:59 AM EDT): -Continue atorvastatin 40 mg daily, repeat fasting lipid panel today Assessment & Plan (09/14/2024 2:21 PM EST): -Continue atorvastatin 40 mg daily, repeat fasting lipid panel at next visit Assessment & Plan (06/08/2024 2:20 PM EDT): -Continue atorvastatin Assessment & Plan (01/28/2024 1:24 PM EDT): -Check lipid panel today -Continue statin for now Assessment & Plan (07/30/2023 10:12 AM EDT): -Check lipid panel today, continue atorvastatin 40 mg daily for now Dyspnea 07/20/2016 Hypothyroidism 07/20/2016 Assessment & Plan (03/30/2025 11:56 AM EDT): -Clinically euthyroid on levothyroxine 50 mcg daily -Check TFTs today Assessment & Plan (09/14/2024 2:19 PM EST): -Clinically euthyroid, continue levothyroxine 50 mcg daily -Patient to have labs done at next visit Assessment & Plan (06/08/2024 2:20 PM EDT): -Clinically euthyroid, continue levothyroxine 50 mcg 6 days/week and 100 mcg 1 day/week -Check TSH and free T4 at follow-up visit Assessment & Plan (01/28/2024 1:26 PM EDT): -Clinically euthyroid -Check TSH and free T4 today -Patient would like to target a TSH closer to 2.0, will adjust dose of levothyroxine based on labs today -Counseled on importance of taking medication by itself -May need Tirosint in the future if she continues to take with PPI with variable thyroid levels Assessment & Plan (07/30/2023 10:11 AM EDT): -Check TSH, free T4 and TPO antibody today -Continue levothyroxine 50 mcg daily for now, will adjust dose based on upcoming labs Non-caseating granuloma 07/20/2016 GUILLERMO (obstructive sleep apnea) 07/20/2016 RAD (reactive airway disease) 07/20/2016 Sjogren-Mayank syndrome 07/20/2016 Venous insufficiency 07/20/2016 Wheezing 07/20/2016 Bilateral lower extremity edema 04/08/2016 Assessment & Plan (04/08/2016 4:06 PM EDT): Advised to increase exercise and salt intake. Type 1 diabetes mellitus 11/01/1982 Overview (01/30/2021): Diagnosed 1982 Mild retinopathy Assessment & Plan (03/30/2025 11:58 AM EDT): -Controlled -Complications include known retinopathy that is stable -Continue GLP-1 agonist for weight loss, will add low dose metformin to see if better weight loss -Counseled on increased risk of hypoglycemia with concomitant GLP-1 agonist use and metformin -Reduced pump ISF and CHO today -Continue Tandem Control IQ with G7 -not taking ACEi/ARB; blood pressure today 131/60 DM Health Maintenance: Ophtho: 06/07/2024; stable nonproliferative diabetic retinopathy Monofilament / Foot exam: Last done 01/2025 by podiatry Lipids/Statin: taking a statin with last FLP showing LDL 77 done 01/28/2024 ASHLEY: negative 01/28/2024 TSH: 2.550 and free T4 1.62 done 01/28/2024 Aspirin: taking Assessment & Plan (09/14/2024 2:21 PM EST): -Controlled although having a few too many lows after meals so we will reduce her carbohydrate ratio to 1:12 CHO -Continue GLP-1 agonist for weight loss -Counseled on increased risk of hypoglycemia with concomitant GLP-1 agonist use -Complications include known retinopathy -not taking ACEi/ARB; blood pressure today 122/74 DM Health Maintenance: Ophtho: 06/07/2024; stable nonproliferative diabetic retinopathy Monofilament / Foot exam: Last done 07/2024 by podiatry Lipids/Statin: Continue statin with last FLP showing LDL 77 done 01/28/2024 ASHLEY: negative 01/28/2024 TSH: 2.550 and free T4 1.62 done 01/28/2024 Aspirin: taking Assessment & Plan (06/08/2024 2:20 PM EDT): -Uncontrolled due to hyperglycemia due to recent steroid use -Patient is now off steroids so I suspect her blood glucoses will improve so no changes to her pump settings will be made at this time -Continue GLP-1 agonist for weight loss -Counseled on increased risk of hypoglycemia with concomitant GLP-1 agonist use -Complications include known retinopathy -not taking ACEi/ARB; blood pressure today 118/68 DM Health Maintenance: Ophtho: 06/07/2024; stable nonproliferative diabetic retinopathy Monofilament / Foot exam: Last done 05/2024 by podiatry Lipids/Statin: taking a statin with last FLP showing LDL 77 9 01/28/2024 ASHLEY: negative 01/28/2024 TSH: 2.550 and free T4 1.62 Done 01/28/2024 Aspirin: taking Assessment & Plan (01/28/2024 1:24 PM EDT): -Blood glucoses today are uncontrolled due to hypoglycemia -Counseled on risk of hypoglycemia including cardiovascular events, seizure and ; recommend slightly relaxed glycemic target -Counseled on risk of stacking bolus doses of insulin -Adjusted pump settings slightly, see media tab -Continue tandem control IQ with Dexcom G7 -Patient taking Zepbound 15 mg weekly for obesity -Not taking ACEi/ARB due to potassium issues in the past and borderline low blood pressure; blood pressure today 104/60 DM Health Maintenance: Ophtho: 01/26/2023; stable nonproliferative diabetic retinopathy Monofilament / Foot exam: Last done 04/21/2023 Lipids/Statin: taking a statin with last FLP showing LDL 72 done 07/28/2022 ASHLEY: negative 07/28/2022 TSH: 4.940, free T4 1.88 Done 07/30/2023 Aspirin: taking Assessment & Plan (07/30/2023 10:12 AM EDT): -Patient with overall very good glycemic control -Complications include nonproliferative diabetic retinopathy -Counseled on the importance of giving bolus insulin prior to eating and recommend she avoid stacking insulin doses -No setting changes in her pump today -On GLP-1 agonist for weight loss -Okay to continue holding ACEi/ARB as long as urine microalbumin is negative and blood pressure remains well controlled; blood pressure today 136/74 DM Health Maintenance: Ophtho: 01/26/2023; stable nonproliferative diabetic retinopathy Monofilament / Foot exam: Last done 04/21/2023 Lipids/Statin: Continue statin with last FLP showing LDL 72 done 07/28/2022 ASHLEY: negative 07/28/2022 TSH: 2.030 done 07/28/2022 while taking levothyroxine 50 mcg daily Aspirin: taking Presence of insulin pump Resolved Problems Problem Noted Date Diagnosed Date Resolved Date Flank pain, acute 06/14/2017 01/30/2021 Type 1 diabetes 07/20/2016 01/30/2021 Type 2 diabetes mellitus without complication 04/08/20 16 01/22/2021 Encounters Date Type Department Care Team Description 06/04/2025 Refill [facility] [address] [place] [address] Emiliano Austin MD Type 1 diabetes mellitus with hyperglycemia 05/15/2025 Prior Authorization [facility] [address] [place] [address] Emiliano Austin MD Zepbound Approval 05/07/2025 Refill [facility] [address] [place] [address] Emiliano Austin MD Type 1 diabetes mellitus with hyperglycemia 03/31/2025 Results Follow-Up [facility] [address] [place] [address] Emiliano Austin MD 03/30/2025 11:30 AM EDT Office Visit [facility] [address] [place] [address] Emiliano Austin MD Type 1 diabetes mellitus with hyperglycemia (Primary Dx); Class 3 severe obesity due to excess calories with serious comorbidity and body mass index (BMI) of 40.0 to 44.9 in adult; 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; Hypercholesterolemia 03/30/2025 Travel 03/21/2025 Refill [facility] [address] [place] [address] Lizzy Coleman PA 03/21/2025 Refill [facility] [address] [place] [address] Alin Walter MD Simple chronic bronchitis 03/21/2025 [facility] ENDOCR[facility] [address] [place] [address] Emiliano Austin MD Class 3 severe obesity due to excess calories with serious comorbidity and body mass index (BMI) of 40.0 to 44.9 in adult from Last 3 Months Immunizations Immunization Administration Dates Next Due COVID-19 (MODERNA) 1st,2nd,3 rd Dose Monovalent 07/03/2021,01/23/2021,12/26/2020 Flu Vaccine Quad PF >36MO 08/29/2016 Flu Vaccine Split Quad 08/29/2016 Fluzone (or Fluarix & Flulav al for VFC) >6mos 09/03/2021,08/29/2016 Fluzone High-Dose 65+YRS 08/25/2024 Fluzone High-Dose 65+yrs 08/19/2023,08/21/2022 Influenza Injectable Mdck Pf Quad 08/08/2020 Influenza, Unspecified 08/08/2020,08/18/2018 Pneumococcal Conjugate 20-Valent (PCV20) 023 Pneumococcal, Unspecified 06/26/2015 Tdap 05/14/2024 flucelvax quad pfs =>4 YRS 08/18/2018 Family History Medical History Relation Name Comments Hypertension Father Lung cancer Father Diabetes Mother Katia Valentin Hypertension Mother Katia Jonathann Stroke Mother Katia Castillon Cancer Sister 1 Mony Javier Breast cancer Diabetes Sister 1 Mony Javier Diabetes type I Sister 1 Mony Javier Hyperparathyroidism Sister 1 Mony Javier Thyroid disease Sister 1 Mony Javier Thyroid disease Sister 2 Izzy Arboleda Relation Name Status Comments Father Mother Katia Valentin Sister 1 Mony Javier Sister 2 Izzy Arboleda Social History Tobacco Use Types Packs/Day Years Used Date Smoking Tobacco: Never Smokeless Tobacco: Never Tobacco Cessation:Counseling Given: Not Answered Alcohol Use Standard Drinks/Week Comments Yes 2 (1 standard drink = 0.6 oz pur e alcohol) social Comments No Sex and Gender Information Value Date Recorded Sex Assigned at Not on file Legal Sex Female 12:29 PM EDT Gender Identity Not on file Sexual Orientation Not on file Last Filed Vital Signs Vital Sign Reading Time Taken Comments Blood Pressure 131/60 03/30/2025 11:30 AM EDT Pulse 78 03/30/2025 11:30 AM EDT Temperature 36.5 C (97.7 F) 01/01/2025 12:03 PM EST Respiratory Rate 16 01/01/2025 12:03 PM EST Oxygen Saturation 96% 03/30/2025 11:30 AM EDT Inhaled Oxygen Concentration - - Weight 101 kg (221 lb 9.6 oz) 03/30/2025 11:30 A M EDT Height 154.9 cm (5' 1 ) 03/30/2025 11:30 AM EDT Body Mass Index 41.87 03/30/2025 11:30 AM EDT Plan of Treatment Upcoming Encounters Date Type Department Care Team (Late st Contact Info) Description 08/31/2025 12:30 PM EDT Office Visit [facility] [address] [place] [address] Emiliano Austin MD [address] [place] [address] Health Maintenance Due Date Last Done Comments DXA SCAN 1956 MAMMOGRAM 1996 COLOGUARD 2001 COLON CANCER SCREENING 5 YEA R SIGMOIDOSCOPY 2001 COLONOSCOPY 2001 [address] CANCER SCREENING 2001 CT COLONOGRAPHY 2001 FECAL OCCULT BLOOD TEST 2001 FIT Testing (1 year) 2001 ZOSTER VACCINE (1 of 2) 2006 ANNUAL PHYSICAL 02/25/2016 HEPATITIS C SCREENING 02/25/2016 BLOOD BANK ATTENDANT PLAN OF CARE 11/17/2016 COVID-19 Vaccine (2023- 5 season) 2024 07/03/2021, 01/23/2021, 12/26/2020 DIABETIC EYE EXAM 06/07/2025 06/07/2024 (Pa tient-Reported (Performed Externally)), 01/26/2023, 08/05/2021, Additional history exists INFLUENZA VACCINE 08/01/2025 08/25/2024, , 08/21/2022, Additional history exists HEMOGLOBIN A1C 09/30/2025 03/30/2025, 09/01, 06/08/2024, Additional history exists DIABETIC FOOT EXAM 02/28/2026 02/28/2025, 0 05/08/2024, 04/21/2023, Additional history exists LIPID PANEL 03/30/2026 03/30/2025, 12/31, 07/30/2023, Additional history exists URINE MICROALBUMIN-CREATININ E RATIO (uACR) 03/31/2026 03/31/2025, 07/30/2023 TDAP/TD VACCINES (2 - Td or Tdap) 05/14/2034 024 Pneumococcal Vaccine 50+ Completed 12/07/2022, 06/02 Procedures Procedure Name Priority Date/Time Associated Diagnosis Comments LIPID PANEL Routine 03/30/2025 11:54 AM EDT Hypercholesterolemia MICROALBUMIN / CREATININE URINE RATIO Routine 03/30/2025 11:54 AM EDT Type 1 diabetes mellitus with hyperglycemia CBC (NO DIFF) Routine 03/30/2025 11:54 AM EDT Type 1 diabetes mellitus with hyperglycemia COMPREHENSIVE METABOLIC PANEL Routine 03/30/2025 11:54 AM EDT Type 1 diabetes mellitus with hyperglycemia T4, FREE Routine 03/30/2025 11:54 AM EDT 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 TSH Routine 03/30/2025 11:54 AM EDT 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 Microalbumin/C reatinine Ratio 03/31/2025 12:09 AM EDT [facility] Comment:Unable to calculate Creatinine, Urine 26.3 mg/dL 03/31/2025 12:09 AM EDT [facility] Microalbumin, Urine <1.2 mg/dL 03/31/2025 12:09 AM EDT [facility] Urine Urine specimen obtained by clean catch procedure / Unknown Collection / Unknown 03/30/2025 11:54 AM EDT 03/30/2025 11:54 AM EDT us Emiliano Austin MD URINE ORDERABLES Final Resu lt [facility]
[address] [place] [address], * CBC (No Diff) (03/30/2025 11:54 AM EDT) Pathologist [facility] WBC 6.34 3.40 - 10.80 10*3/mm3 03/30/2025 11:46 PM EDT [facility] RBC 4.83 3.77 - 5.28 10*6/mm3 03/30/2025 11:46 PM EDT [facility] Hemoglobin 15.2 12.0 - 15.9 g/dL 03/30/2025 11:46 PM EDT [facility] Hematocrit 45.7 34.0 - 46.6 % 03/30/2025 11:46 PM EDT [facility] MCV 94.6 79.0 - 97.0 fL 03/30/2025 11:46 PM EDT [facility] MCH 31.5 26.6 - 33.0 pg 03/30/2025 11:46 PM EDT [facility] MCHC 33.3 31.5 - 35.7 g/dL 03/30/2025 11:46 PM EDT [facility] RDW 12.7 12.3 - 15.4 % 03/30/2025 11:46 PM EDT [facility] RDW-SD 43.6 37.0 - 54.0 fl 03/30/2025 11:46 PM EDT [facility] MPV 11.4 6.0 - 12.0 fL 03/30/2025 11:46 PM EDT [facility] Platelets 285 140 - 450 10*3/mm3 03/30/2025 11:46 PM EDT [facility] Blood Venipuncture / Unknown 03/30/2025 11:54 AM EDT 03/30/2025 11:54 AM EDT Emiliano Austin MD LAB BLOOD ORDERABLES Final Result [facility]
[address] [place] [address], * TSH (03/30/2025 11:54 AM EDT) TSH 2.330 0.270 - 4.200 uIU/mL 03/30/2025 11:37 PM EDT [facility] Blood Structure of left upper limb / Unknown Venipuncture / Unknown 03/30/2025 11:54 AM EDT 03/30/2025 11:54 AM EDT Emiliano Austin MD LAB BLOOD ORDERABLES Final Result [facility]
[address] [place] [address], * T4, Free (03/30/2025 11:54 AM EDT) Free T4 1.37 0.92 - 1.68 ng/dL 03/30/2025 11:37 PM EDT [facility] Blood Structure of left upper limb / Unknown Venipuncture / Unknown 03/30/2025 11:54 AM EDT 03/30/2025 11:54 AM EDT Emiliano Austin MD LAB BLOOD ORDERABLES Final Result [facility]
[address] [place] [address], * (ABNORMAL) Lipid Panel (03/30/2025 11:54 AM EDT) Total Cholesterol 196 0 - 200 mg/dL 03/30/2025 11:35 PM EDT [facility] Triglycerides 38 0 - 150 mg/dL 03/30/2025 11:35 PM EDT [facility] HDL Cholesterol 131(H) 40 - 60 mg/dL 03/30/2025 11:35 PM EDT [facility] LDL Cholesterol 57 0 - 100 mg/dL 03/30/2025 11:35 PM EDT [facility] VLDL Cholesterol 8 5 - 40 mg/dL 03/30/2025 11:35 PM EDT [facility] LDL/HDL Ratio 0.44 03/30/2025 11:35 PM EDT [facility] Blood Structure of left upper limb / Unknown Venipuncture / Unknown 03/30/2025 11:54 AM EDT 03/30/2025 11:54 AM EDT [facility] - 03/30/2025 11:35 PM EDT Cholesterol Reference Ranges (U.S. Department of Health and Human Services ATP III Classifications) Desirable <200 mg/dL Borderline High 200-239 mg/dL High Risk >240 mg/dL Triglyceride Reference Ranges (U.S. Department of Health and Human Services ATP III Classifications) Normal <150 mg/dL Borderline High 150-199 mg/dL High 200-499 mg/dL Very High >500 mg/dL HDL Reference Ranges (U.S. Department of Health and Human Services ATP III Classifications) Low <40 mg/dl (major risk factor for CHD) High >60 mg/dl ('negative' risk factor for CHD) LDL Reference Ranges (U.S. Department of Health and Human Services ATP III Classifications) Optimal <100 mg/dL Near Optimal 100-129 mg/dL Borderline High 130-159 mg/dL High 160-189 mg/dL Very High >189 mg/dL LDL is calculated using the NIH LDL-C calculation. Emiliano Austin MD LAB BLOOD ORDERABLES Final Result [facility]
[address] [place] [address], * (ABNORMAL) Comprehensive Metabolic Panel (03/30/2025 11:54 AM EDT) Glucose 87 65 - 99 mg/dL 03/31/2025 12:36 AM T [facility] BUN 13.0 8.0 - 23.0 mg/dL 03/31/2025 12:36 AM EDT [facility] Creatinine 0.83 0.57 - 1.00 mg/dL 03/31/2025 12:36 AM EDT [facility] Sodium 133(L) 136 - 145 mmol/L 03/31/2025 12:36 AM [facility] Potassium 5.1 3.5 - 5.2 mmol/L 03/31/2025 12:36 AM EDT [facility] Chloride 96(L) 98 - 107 mmol/L 03/31/2025 12:36 AM T [facility] CO2 27.2 22.0 - 29.0 mmol/L 03/31/2025 12:36 AM EDT [facility] Calcium 9.6 8.6 - 10.5 mg/dL 03/31/2025 12:36 [facility] Total Protein 6.7 6.0 - 8.5 g/dL 03/31/2025 12:36 AM [facility] Albumin 4.1 3.5 - 5.2 g/dL 03/31/2025 12:36 AM [facility] ALT (SGPT) 21 1 - 33 U/L 03/31/2025 12:36 AM [facility] AST (SGOT) 28 1 - 32 U/L 03/31/2025 12:36 AM [facility] Alkaline Phosphatase 78 39 - 117 U/L 03/31/2025 12:36 AM [facility] Total Bilirubin 0.8 0.0 - 1.2 mg/dL 03/31/2025 12:36 AM [facility] Globulin 2.6 gm/dL 03/31/2025 12:36 AM [facility] A/G Ratio 1.6 g/dL 03/31/2025 12:36 AM [facility] BUN/Creatinine Ratio 15.7 7.0 - 25.0 03/31/2025 12:36 AM [facility] Anion Gap 9.8 5.0 - 15.0 mmol/L 03/31/2025 12:36 AM [facility] eGFR 76.9 >60.0 mL/min/1.7 3 03/31/2025 12:36 AM [facility] Blood Structure of left upper limb / Unknown Venipuncture / Unknown 03/30/2025 11:54 AM EDT 03/30/2025 11:54 AM [facility] - 03/31/2025 12:36 AM T GFR Categories in Chronic Kidney Disease (CKD) GFR Category GFR (mL/min/1.73) Interpretation G1 90 or greater Normal or high (1) G2 60-89 Mild decrease (1) G3a 45-59 Mild to moderate decrease G3b 30-44 Moderate to severe decrease G4 15-29 Severe decrease G5 14 or less Kidney failure (1)In the absence of evidence of kidney disease, neither GFR category G1 or G2 fulfill the criteria for CKD. eGFR calculation 2020 CKD-EPI creatinine equation, which does not include race as a factor us Emiliano [place] MD LAB BLOOD ORDERABLES Final Result [facility]
[address] [place] [address], [place] [phone] * POC Glycosylated Hemoglobin (Hb A1C) (03/30/2025 11:42 AM EDT) Hemoglobin A1C 5.5 4.5 - 5.7 % [facility] Lot Number [id number] [facility] Expiration Date 12/27/2026 [facility] Blood 03/30/2025 11:4 2 AM EDT us Emiliano [place] MD POINT OF CARE TEST ORDERABL ES Final Result Performing Organization Address City/[facility] Co de Phone Number [facility]
[address] [place] [address], [place] [phone] * POC Glucose, Blood (03/30/2025 11:35 AM EDT) Glucose 90 70 - 130 mg/dL Lot Number [id number] Expiration Date 10/14/2025 Blood 03/30/2025 11:3 5 AM EDT us Emiliano [place] MD POINT OF CARE TEST ORDERABL ES Final Result * SCANNED - EYE EXAM (01/26/2023) Anatomical Region Laterality Modality Other Itzel Hodges MD CHART REVIEW TABS Kori lu Result from Last 3 Months or Most Recently Relevant to Health Maintenance Insurance BLUE [facility] PPO Care Teams Aoc Director Intelligence Officer Relationship Specialty Start Date End Date Simone To MD PCP - General Family Medicine 07/28/22
--- NOTE | 2025-06-06 13:00 | MR_ITS ---
FINAL REPORT CLINICAL HISTORY: mid to upper back pain, nki FINDINGS: Multi planar MR imaging was obtained of the cervical spine. There is abnormal decreased signal throughout the cervical discs. There is mild loss of height at C3-4, C4-5, and C5-6. The vertebrae are of normal height. There is no malalignment. The cervical cord demonstrates normal signal and configuration. C2-C3: There is no evidence of significant disc bulge or protrusion. There is no significant facet hypertrophy. C3-C4: Mild to moderate diffuse disc bulge and endplate hypertrophy. Moderate bilateral neuroforaminal narrowing. C4-C5: Moderate diffuse disc bulge and endplate hypertrophy. Moderate to high-grade right and moderate left neuroforaminal narrowing. There is moderate spinal canal compromise. C5-C6: Endplate hypertrophy with moderate to high-grade bilateral neuroforaminal narrowing. C6-C7: Small right paracentral disc protrusion with mild compromise of the right side of the spinal canal and mild right neuroforaminal narrowing. C7-T1: There is no evidence of significant disc bulge or protrusion. There is no significant facet hypertrophy. IMPRESSION: Multilevel degenerative disc disease with moderate and neuroforaminal compromise, most evident on the right at C4-5 and bilaterally at C5-6. Reviewed, Interpreted and Dictated by Darius Connors MD Transcribed by Millie Hays Authenticated and [facility]
--- OUTSIDE RECORDS SUMMARY | 2025-06-06 13:00 | XMS_ITS | Encounter Summary ---
[facility] Address [address] [place] [address] Care Team Providers Care Cdl Company Driver Name Role Phone Simone To MD Primary Care Provider +1- [phone] Reason for Visit * Reason Onset Date Comments Med Refill 05/07/2025 Encounter Details Date Type Department Care Team (Late Contact Info) Description 05/07/[address] [facility] [address] [place] [address] Emiliano [place] MD [address] [place] [address] [id number] Type 1 diabetes mellitus with hyperglycemia Social History Tobacco Use Types Packs/Day Years [...] Description 08/31/2025 12:30 PM EDT Office Visit [facility] [address] [place] [address] Emiliano [place] MD [address] [place], [place] [id number] documented as of this encounter Visit Diagnoses Diagnosis Type 1 diabetes mellitus with hyperglycemia documented in this encounter Care Teams Cdl Company Driver Relationship Specialty Start Date End Date Simone To MD PCP - General Family Medicine 07/28/22 documented as of this encounter
--- OUTSIDE RECORDS SUMMARY | 2025-06-06 13:00 | XMS_ITS | Encounter Summary ---
[facility] Address [address] [place] [address] Care Team Providers Care Childcare Provider Name Role Phone Simone To MD Primary Care Provider +1- [phone] Reason for Visit * Reason Onset Date Comments Zepbound Approval 05/15/2025 Encounter Details Date Type Department Care Team (Late st Contact Info) Description 05/15/2025 Prior Authorization [facility] [address] [facility] [address] [place] [id number] Emiliano [place] MD [address] [address] Zepbound Approval Social History Tobacco Use Types Packs/Day Years [...] encounter Miscellaneous Notes * Telephone Encounter - Stella Hoffman MA - 05/15/2025 8:32 AM EDT Lena Galloway ([place]: [id number]) Zepbound 15MG/0.5ML pen-injectors Form [employer] Electronic PA Form (2017 [facility]) Created 8 hours ago Sent to Plan 1 hour ago Plan Response 12 minutes ago Submit Clinical Questions 1 minute ago Determination Favorable less than a minute ago Message from Plan CaseId:[id number];Status:Approved;Review Type:Prior Auth;Coverage Start Date:04/15/2025;Coverage EndDate:05/15/2026;. Authorization Expiration Date: May 15, 2026. documented in this encounter Plan of Treatment Upcoming Encounters Date Type Department Care Team (Late st Contact Info) Description 08/31/2025 12:30 PM EDT Office Visit [facility] [address] [address] Emiliano [place] MD [address] [address] documented as of this encounter Visit Diagnoses Not on filedocumented in this encounter Care Teams Childcare Provider Relationship Specialty Start Date End Date Simone To MD PCP - General Family Medicine 07/28/22 documented as of this encounter
--- OUTSIDE RECORDS SUMMARY | 2025-06-06 13:00 | XMS_ITS | Encounter Summary ---
Author Organization [facility] Address [address] [id number] Care Team Providers Care Metal Sponge Making Machine Operator Name Role Phone Simone To MD Primary Care Provider +1- [phone] Encounter Details Date Type Department Care Team (Late st Contact Info) Description 03/31/2025 Results Follow-Up [facility] [address] [place] [address] Emiliano [place] MD [address] [place] [address] Social History Tobacco Use Types Packs/Day Years [...] CENTER ENDOCRINOLOGY [address] [place] [address] Emiliano [place] MD [address] [place] [address] documented as of this encounter Visit Diagnoses Not on filedocumented in this encounter Care Teams Metal Sponge Making Machine Operator Relationship Specialty Start Date End Date Simone To MD PCP - General Family Medicine 07/28/22 documented as of this encounter
--- OUTSIDE RECORDS SUMMARY | 2025-06-06 13:00 | XMS_ITS | Encounter Summary ---
[facility] Address [address] [place] [address] Care Team Providers Care Para Educator Name Role Phone Simone To MD Primary Care Provider +1- [phone] Encounter Details Date Type Department Care Team (Late st Contact Info) Description 06/04/2025 Refill [facility] [address] [place] [phone] Emiliano [place] MD [address] [place], [place] [id number] Type 1 diabetes mellitus with hyperglycemia Social [...] encounter Miscellaneous Notes * Telephone Encounter - Karol Bell MA - 06/04/2025 10:34 AM EDT Last office visit with prescribing clinician: 03/30/2025 Next office visit with prescribing clinician: 08/31/2025 { * Telephone Encounter - Chicho Rodríguez RegSched Rep - 06/04/2025 10:02 AM EDT Pt called prescription for Metformin 500 mg was sent to wrong pharmacy on 03/30/25. Please send to [facility] Mail order documented in this encounter Plan of Treatment Upcoming Encounters Date Type Department Care Team (Late st Contact Info) Description 08/31/2025 12:30 PM EDT Office Visit [facility] [address] [address] Emiliano [place] MD [address] [place] [id number] documented as of this encounter Visit Diagnoses Diagnosis Type 1 diabetes mellitus with hyperglycemia documented in this encounter Care Teams Para Educator Relationship Specialty Start Date End Date Simone To MD PCP - General Family Medicine 07/28/22 documented as of this encounter
--- NOTE | 2025-06-06 13:45 | MR_ITS ---
FINAL REPORT CLINICAL HISTORY: mid to upper back pain, nki FINDINGS: Multiplanar MR imaging of the thoracic spine was performed without contrast. On the sagittal T2-weighted images, abnormal decreased signal is seen throughout. There is abnormal loss of height at all disc levels. There is no evidence of fracture. The vertebral alignment is normal. The thoracic cord demonstrates normal signal and configuration. On the axial images, there are minimal diffuse disc bulges at T8-9 and T9-10 without significant spinal or neuroforaminal compromise. IMPRESSION: Minimal disc bulges at T8-9 and T9-10 without significant spinal or neuroforaminal compromise. Reviewed, Interpreted and Dictated by Darius Connors MD Transcribed by Millie Hays Authenticated and . [facility]
== END 2025-06-06 23:59 | disposition home or self-care (01) ==
PROVIDERS: PCP Family Medicine; Visit Provider Family Medicine
DX: M51.34 Other intervertebral disc degeneration, thoracic region (principal); M47.812 Spondylosis without myelopathy or radiculopathy, cervical region; M50.321 Other cervical disc degeneration at C4-C5 level; M50.322 Other cervical disc degeneration at C5-C6 level; M50.221 Other cervical disc displacement at C4-C5 level; M50.223 Other cervical disc displacement at C6-C7 level; M48.02 Spinal stenosis, cervical region
CPT/HCPCS: 72141; 72146

== ENCOUNTER 2025-07-26 10:56 | Outpatient (CLI) | payer BC, SELFPAY ==
--- OUTSIDE RECORDS SUMMARY | 2018-01-14 20:00 | XMS_ITS | Encounter Summary ---
Author Organization [facility] Address [address] [place] [address] Care Team Providers Care Planning Technician Name Role Phone Nicolette Gates MD Primary Care Provider [phone] Reason for Referral * Hospital - Outpatient (Routine) - Closed Specialty Diagnoses / Procedures Referred By Contac t Referred To Contact Sleep Medicine Diagnoses GUILLERMO (obstructive sleep apnea) Nocturnal hypoxemia Procedures Polysomnography 4 or More Parameters Polysomnography 4 or More Parameters With CPAP Alin Walter MD Phone: tel: fax: [facility] [address] [address] Phone: tel: fax: Referral ID Status Reason Start Date Expiration Date Visits Re quested Visits Authorized [id number] Closed 12/14/2017 02/24/2018 1 1 Reason for Visit * Hospital - Outpatient (Routine) - Closed Specialty Diagnoses / Procedures Referred By Contac t Referred To Contact Sleep Medicine Diagnoses GUILLERMO (obstructive sleep apnea) Nocturnal hypoxemia Procedures Polysomnography 4 or More Parameters Polysomnography 4 or More Parameters With CPAP Alin Walter MD Phone: tel: fax: [facility] [address] [address] Phone: tel: fax: Referral ID Status Reason Start Date Expiration Date Visits Re quested Visits Authorized [id number] Closed 12/14/2017 02/24/2018 1 1 Encounter Details Date Type Department Care Team (Late Contact Info) Description 01/14/2018 8:00 PM EDT Hospital Encounter [facility] [address] [place] [address] Alin Walter MD [address] [place] [address] GUILLERMO (obstructive sleep apnea); Nocturnal hypoxemia Social History Tobacco Use Types Packs/Day Years Used Date Smoking Tobacco: Never Smokeless Tobacco: Never Alcohol Use Standard Drinks/Week Comments Yes 2 (1 standard drink = 0.6 oz pur e alcohol) social Comments No Sex and Gender Information Value Date Recorded Sex Assigned at Not on file Legal Sex Female 12:29 PM EDT Gender Identity Not on file Sexual Orientation Not on file documented as of this encounter Last Filed Vital Signs Vital Sign Reading Time Taken Comments Blood Pressure 170/75 01/14/2018 8:16 PM EDT Pulse 76 01/14/2018 8:16 PM EDT Temperature - - Respiratory Rate - - Oxygen Saturation 97% 01/14/2018 8:16 PM EDT Inhaled Oxygen Concentration - - Weight 120 kg (265 lb) 01/14/2018 8:16 PM EDT Height 157.5 cm (5' 2 ) 01/14/2018 8:16 PM EDT Body Mass Index 48.47 01/14/2018 8:16 PM EDT documented in this encounter Plan of Treatment Upcoming Encounters Date Type Department Care Team (Late Contact Info) Description 01/11/2026 11:30 AM EDT Office Visit [facility] [address] [place] [id number] Emiliano Austin MD [address] [place], [place] [id number] documented as of this encounter Procedures Procedure Name Priority Date/Time Associated Diagnosis Comments SPLIT NIGHT Routine 01/15/2018 7:30 AM EDT GUILLERMO (obstructive sleep apnea) Nocturnal hypoxemia documented in this encounter Results * SPLIT NIGHT (01/15/2018 7:30 AM EDT) Narrative Leonidas Howard MD - 01/26/2018 3:40 PM EDT Patient Name: Lena Monteiro Date of : 1955 Date of Study: 01/15/18 Sleep Specialist: Leonidas Howard MD Referring Provider: Titration Report Indication for study: Nocturnal oxygen desaturation and history of obstructive sleep apnea Clinical Information: 62-year-old female seen by Dr. Walter. Overnight oximetry reveals significant oxygen desaturations and she has a history of obstructive sleep apnea diagnosed in the past and she has been noncompliant with CPAP therapy. Technical Description: A) Total study time: 148 minutes diagnostic and 318 minutes treatment. B) Total sleep time: 118 minutes diagnostic and 247 minutes treatment. C) Polysomnogram recording included: 1. Six channels of EEG. 2. Two channels of EOG. 3. EMG of chin, right and left tibialis anterior muscles. 4. Air flow using nasal thermocouple. 5. Respiratory efforts using thoracoabdominal respiratory bands. 6. Oxygen saturation via finger oximetry. 7. Body position. 8. Snoring via microphone. 9. ECG. 10. PAP therapy/titration as indicated per standard protocol. Polysomnogram Results: A) Sleep statistic and architecture: The patient had a sleep efficiency of 80 % during the diagnostic phase of the study. Sleep latency was 20 minutes. Sleep arousal index was 21 per hour during the diagnostic phase of the study and was reduced to 13 with treatment. B) Respiratory events: The apnea-hypopnea index was 19 during the diagnostic phase of the study. C) Body position: The patient slept in the supine position as well has on both sides with a higher index while supine D) Snoring: Snoring was eliminated by PAP therapy. E) Oxygen saturation: Oxygen saturation averaged 93 % with a minimum oxygen saturation of 80 % during the diagnostic phase. F) Periodic limb movements: The periodic limb movement index was elevated at 36 during the diagnostic phase of the study but was reduced to 16 with therapy. G) ECG: There were no prolonged arrhythmias. Positive Airway Pressure Titration Results: The patient was initiated on CPAP therapy at a pressure of 6 and titrated up to final pressure of 13, at which point her AHI was 0.6 with a minimum oxygen saturation of 92 %. She did achieve supine REM during the study. Impression: Moderate obstructive sleep apnea is present. A significant primary limb movement disorder was probably not present as the PLM index improved with CPAP therapy. She responded well to CPAP therapy. AHI was normal at all pressures tested. Oxygen saturations were acceptable at all pressures tested. Recommendations: Auto CPAP at a range of 8-16. A simplus full facemask appeared to work well in the sleep center. She will follow-up with Dr. Walter for initiation of therapy and follow-up to assess efficacy and compliance. Signed by Leonidas Howard MD on 01/26/18 Alin Walter MD SLEEP CENTER ORDERABLES Kori l Result documented in this encounter Visit Diagnoses Diagnosis GUILLERMO (obstructive sleep apnea) Obstructive sleep apnea (adult) (pediatric) Nocturnal hypoxemia documented in this encounter Additional Health Concerns Infection Onset Date Last Indicated Resolved Time COVID (rule out) 07/26/2020 07/29/2020 08/05/2020 9:08 PM EDT COVID (rule out) 12/27/2020 12/30/2020 01/03/2021 9:10 PM EST COVID (rule out) 09/05/2021 09/08/2021 09/12/2021 9:08 PM EST COVID (rule out) 02/27/2022 03/02/2022 03/06/2022 9:08 PM EDT documented as of this encounter Care Teams Planning Technician Relationship Specialty Start Date End Date Nicolette Gates MD [address] [place] [address] PCP - General 06/25/15 05/31/19 documented as of this encounter
--- OUTSIDE RECORDS SUMMARY | 2025-07-09 11:10 | XMS_ITS | Encounter Summary ---
Demographics Address [facility] [address] [place] [address] Home Phone Mobile Phone Email Address Preferred Language en Marital Status Roman Catholic Affiliation Unknown Race White Ethnic Group Not or Lati no Author Organization [facility] Address [address] [place] [address] Care Team Providers Care Residential Mortgage Manager Name Role Phone Simone To MD Primary Care Provider Genia vailable Reason for Referral * Consultation (Routine) - Authorized Specialty Diagnoses / Procedures Referred By Mil etienne Referred To Contact Otolaryngology Diagnoses Sjogren syndrome with keratoconjunctivitis (CMS/HCC) Other fatigue Nikolay Carson MD [address] [address] Phone: tel: fax: [facility] [address] [place] [address] Phone: tel: fax: Referral ID Status Reason Start Date Expiration Date Visits Requested Visits Authorized [id number] Authorized Specialty Services Required 07/09/2025 01/08/2027 1 1 Reason for Visit * Reason Comments Sjogren syndrome with keratoconjunctivit is (CMS/HCC) Encounter Details Date Type Department Care Team (Latest Contact Info) Description 07/09/2025 11:10 AM EDT Office Visit [facility] Medicine Specialties [address] [place] [address] Nikolay Carson MD [address] [place] [phone] Sjogren syndrome with keratoconjunctivitis (CMS/HCC) (Primary Dx); Other fatigue; Fibromyalgia; Positive LUCIO (antinuclear antibody); Sicca syndrome (CMS/HCC); Polyarthralgia; Rash and other nonspecific skin eruption; NSAID long-term use Social History Tobacco Use Types Packs/Day Years [...] Sign Reading Time Taken Comments Blood Pressure 117/77 07/09/2025 11:15 AM EDT Pulse 78 07/09/2025 11:15 AM EDT Temperature - - Respiratory Rate - - Oxygen Saturation 99% 07/09/2025 11:15 AM EDT Inhaled Oxygen Concentration - - Weight 102 kg (225 lb 1.4 oz) 07/09/2025 11:15 A M EDT Height 157.5 cm (5' 2 ) 07/09/2025 11:15 AM EDT Body Mass Index 41.17 07/09/2025 11:15 AM EDT documented in this encounter Miscellaneous Notes * Progress Notes - Vanesa Juan MD - 07/09/2025 11:10 AM EDT Subjective Lena Monteiro is a 69 y.o. female here for f/u Sjogren's disease Past medical/surgical history Asthma, type 1 diabetes, fibromyalgia, GERD, hyperlipidemia, hypertension and migraine headaches, has +ve TPO and on levothyroxine, she follows with endo HPI First seen by Dr. Carson October 2023 Sjogren's disease dxed in 2015 serologies and sicca Has sicca symptoms,very dry mouth w difficulty swallowing No inflammatory arthritis, no stiffness or swelling. Occasional joint soreness and tenderness well controlled on Cymbalta Previously started salagen, can take up to TID , discussed side effects Rheum Medication Hx Hydroxychloroquine-discontinued due to concerns for ocular toxicity Pilocarpine-currently taking twice a day Cymbalta-currently taking 60mg daily Nabumetone Sulindac Social history: no cigarette smoking, occasional EtOH use , no illicit substance use Today: Medications: Currently on pilocarpine 5mg twice a day with some improvement; no side effects at this time; is aware she can increase to TID if she can tolerate this Continues on Cymbalta 60mg daily; overall improvement in daily joint soreness/tenderness with this regimen At last visit, patient was on 15mg meloxicam for 2 weeks prescribed by PCP; no longer using this Occasionally takes ibuprofen/Aleve during joint pain episodes Joints: Patient was not having any joint tenderness/stiffness during visit today; did have recent episode where she had 7/10 pain in all finger joints, elbows, knees, wrists and ankles and morning stiffness; episode lasted 2 full days with pain persistently throughout the day; patient took Aleve and rested during this episode with some relief in symptoms; pain was worse with activity; after 2 days the joint pain completely resolved and has not recurred; eye dryness/mouth dryness did not worsen during this episode Skin: Patient denies any rashes; in the past has had some episodes of sun exposure rashes but did not have any this summer Eyes: Patient reports she has next appointment with hospital internship in a few weeks Continues to have persistent dry eyes; overall stable and controlled, uses liquid tears for symptomcontrol Mouth: Patient sees dentist every three months; has not had any recent/current mouth sores On pilocarpine twice daily with some improvement in symptoms General: Has had 95 pound weight loss while taking GLP-1; occasionally has to take Zofran for nausea with the GLP-1; feels like weight loss has overall improved her sleep apnea Does report fatigue due to recent worsening insomnia; patient reports waking up at 2am almost nightly and having significant trouble falling back to sleep B-symptoms: No unintentional weight loss; No fever Infections: No recent or recurrent infection; no recent illnesses Lymph nodes: No swelling in the lymph nodes Chest (CV, Pulm): No sob/no chest pain Allergies Lisinopril Review of Systems 12 point ros neg other than HPI Objective Physical Exam Constitutional: Appearance: Normal appearance. HENT: Head: Normocephalic and atraumatic. Mouth/Throat: Mouth: Mucous membranes are moist. Comments: No oral ulcers Adequate oral hygiene Adequate salivary pool Eyes: Extraocular Movements: Extraocular movements intact. Conjunctiva/sclera: Conjunctivae normal. Neck: Comments: Some tenderness in neck but reports this is from degenerative changes Cardiovascular: Rate and Rhythm: Normal rate and regular rhythm. Pulses: Normal pulses. Pulmonary: Effort: Pulmonary effort is normal. Breath sounds: Normal breath sounds. Abdominal: General: Abdomen is flat. Palpations: Abdomen is soft. Musculoskeletal: General: No tenderness. Normal range of motion. Cervical back: Normal range of motion. Comments: No obvious swelling of MCP, PIP or DIP joints of bilateral hands/fingers Mild bilateral swelling of ankles; no tenderness to palpation of fingers/wrists/ankles Skin: General: Skin is warm and dry. Findings: No rash. Neurological: General: No focal deficit present. Mental Status: She is alert and oriented to person, place, and time. Mental status is at baseline. Psychiatric: Mood and Affect: Mood normal. Behavior: Behavior normal. Labs/imaging: Autoimmune panel Positive LUCIO 1:80 speckled pattern (02/19/2015) Positive SSA Negative RF Negative ANCA Low FINN (13) Desire UA and C3,C4 Assessment/Plan Lena Monteiro is a 69 y.o. female here for f/u on Sjogren's disease and FMS. Sjogren's disease dxed in 2014 serologies and sicca I do not have evidence of a laboratory SSA positivity in the chart, only documented in previous notes. Repeat serologies January 18 at [facility] positive LUCIO 1-160, positive LUCIO, negative sub-serologies She had rash prior to the diagnosis, images in media , Has sicca symptoms,very dry mouth w difficulty swallowing, improved w salagen Occasional joint soreness and tenderness w/o swelling well controlled on Cymbalta and PRN ibuprofen previously on Mobic daily for 2 weeks prescribed by PCP, no longer taking Mobic for pain; most recently took Aleve during joint pain flare up but otherwise only on Cymbalta for joint tenderness/swelling Ophthalmology not excited about Plaquenil given her diabetic eye disease, I do not have the records Denies pleuritic symptoms, chest pain or shortness of breath No cytopenias,very mild lymphopenia, unremarkable kidney function liver enzymes no proteinuria or hematuria has positive AMA , RUQ liver US was unremarkable per records shared from outside facility Cont cymbalta cont salagen, can take up to TID , discussed side effects Can consider methotrexate or sulfasalazine in the future if patient were to worsen manifest inflammatory arthritis symptoms, -not indicated at this time as patient had recent flare up that quickly resolved on its own within 2 days and pain could overall be managed with Cymbalta, Aleve and rest Patient continues to complain of worsening fatigue; previously checked TSH and vitamin-D at last visit and both wnl Plan: -Continue Cymbalta 60mg daily -Continue PRN Aleve or ibuprofen during flares -Continue pilocarpine BID for dry mouth; can increase to TID if symptoms don't continue to improve -referral to ENT for repeat sleep study as patient with new and worsening insomnia despite significant weight loss -will hold off on methotrexate/sulfasalazine/any immunosuppressants at this time as patient only with mild joint pain flare ups that are overall well controlled with Cymbalta/Aleve/ and rest -patient will follow up in [address] Carson Healthcare maintenance Immunization History Administered Date(s) Administered Influenza, high-dose, quadrivalent 08/21/2022, 08/19/2023, 08/25/2024 Influenza, injectable, MDCK, preservative free, quadrivalent 08/18/2018, 08/08/2020 Influenza, injectable, quadrivalent, preservative free 08/29/2016, 09/03/2021 Moderna COVID-19 Vaccine (Manager Of Procurement) 12+ years 12/26/2020, 01/23/2021, 07/03/2021 Pneumococcal 20-umu Conj Vaccine 12/07/2022 Pneumococcal, Unspecified 06/26/2015 Tdap 05/14/2024 There are no diagnoses linked to this encounter. No follow-ups on file. Vanesa Juan MD Internal Medicine, PGY-1 07/09/2025 Cosigned by Nikolay Carson MD at 07/11/2025 3:04 PM EDT Associated attestation - Nikolay Carson MD - 07/11/2025 3:04 PM EDT I saw and evaluated the patient with the resident/fellow. I discussed the case with the resident/fellow and agree with the findings and plan as documented. Doing well, continue cymbalta and pilocarpine. Prn NSAIDs Labs No need for immune suppression. Lena was seen today for sjogren syndrome with keratoconjunctivitis (cms/hcc). Diagnoses and all orders for this visit: Sjogren syndrome with keratoconjunctivitis (CMS/HCC) (Primary) - ENT; Future - pilocarpine (Salagen) 5 MG tablet; Take 1 tablet by mouth 3 times a day. Other fatigue - ENT; Future Fibromyalgia - DULoxetine (Cymbalta) [address] capsule; Take 1 capsule by mouth daily. DO NOT CRUSH OR CHEW Positive LUCIO (antinuclear antibody) Sicca syndrome (CMS/HCC) Polyarthralgia Rash and other nonspecific skin eruption NSAID long-term use I spent 40 minutes in this patient encounter which includes reviewing records from the referring provider, gathering history, reviewing images, labs, evaluation, counseling and documentation. Nikolay Carson MD. Therapy Site Coordinator Division of Rheumatology Department of Internal Medicine [facility] documented in this encounter Plan of Treatment Upcoming Encounters Date Type Department Care Team (Late st Contact Info) Description 08/14/2025 12:40 PM EDT Consult [facility] Otolaryngology [address] [place] [address] Glen Domínguez MD [address] [place] [phone] 01/08/2026 11:10 AM EDT Office Visit [facility] Medicine Specialties [address] [place] [address] Nikolay Carson MD [address] [place] [address] Scheduled Referrals Name Type Priority Associated Diagnoses Orde r Schedule ENT Outpatient Referral Routine Sjogren syndrome with keratoconjunctivitis (CMS/HCC) Other fatigue 1 Occurrences starting 07/09/2025 until 01/10/2027 documented as of this encounter Visit Diagnoses Diagnosis Sjogren syndrome with keratoconjunctivitis (CMS/HCC)- Primary Other fatigue Fibromyalgia Unspecified myalgia and myositis Positive LUCIO (antinuclear antibody) Other and unspecified nonspecific immunological findings Sicca syndrome (CMS/HCC) Sicca syndrome Polyarthralgia Pain in joint, multiple sites Rash and other nonspecific skin eruption NSAID long-term use Encounter for long-term (current) use of non-steroidal anti-inflammatories documented in this encounter Additional Health Concerns Assessment Noted Time A fall risk assessment has been complete d for the patient 01/03/2025 12:43 PM EST A Body Mass Index follow-up plan has been documented for the patient 07/11/2025 3:04 PM EDT documented as of this encounter Care Teams Residential Mortgage Manager Relationship Specialty Start Date End Date Simone To MD PCP - General Family Medicine 06/19/22 documented as of this encounter
--- OUTSIDE RECORDS SUMMARY | 2025-07-30 09:15 | XMS_ITS | Encounter Summary ---
[facility] Address [address] [place] [address] Care Team Providers Care Hopper Operator Name Role Phone Simone To MD Primary Care Provider +1- [phone] Encounter Details Date Type Department Care Team (Late st Contact Info) Description 06/04/2025 Refill [facility] ENDOCRINOLOGY [address] [place] [phone] Emiliano Austin MD [address] [place], [place] [id number] Type 1 diabetes mellitus with hyperglycemia Social [...] Visit [facility] END[facility]CR[facility] [address] [address] Emiliano Austin MD [address] [place] [address] documented as of this encounter Visit Diagnoses Diagnosis Type 1 diabetes mellitus with hyperglycemia documented in this encounter Care Teams Hopper Operator Relationship Specialty Start Date End Date Simone To MD PCP - General Family Medicine 07/28/22 documented as of this encounter
--- OUTSIDE RECORDS SUMMARY | 2025-07-30 09:15 | XMS_ITS | Encounter Summary ---
[facility] Address [address] [place] [address] Care Team Providers Care Automated Access Systems Technician Name Role Phone Simone To MD Primary Care Provider +1- [phone] Reason for Visit * Reason Onset Date Comments Med Refill 05/07/2025 Encounter Details Date Type Department Care Team (Late st Contact Info) Description 05/07/2025 Refill [facility] ENDOCRINOLOG[facility] [address] [place] [address] Emiliano Austin MD [address] [place] [address] Type 1 diabetes mellitus with [...] 11:30 AM EDT Office Visit [facility] ENDOCRIN[facility] [address] [place] [address] Emiliano Austin MD [address] [place] [address] documented as of this encounter Visit Diagnoses Diagnosis Type 1 diabetes mellitus with hyperglycemia documented in this encounter Care Teams Automated Access Systems Technician Relationship Specialty Start Date End Date Simone To MD PCP - General Family Medicine 07/28/22 documented as of this encounter
--- OUTSIDE RECORDS SUMMARY | 2025-07-30 09:15 | XMS_ITS | Data Portability ---
Author Organization [facility] GRADY Romero [place] [facility] Address [address] [facility] [place] [address] Care Team Providers Care Research Electrician Name Role Phone NICKY CISSE Primary Care Provider [phone] Assessment Encounter Date Assessment Date Assessment LastModified by Organization Details LastModified Time 01/02/2020 01/02/2020 Continue Macrobid suppression. We discussed UTI prevention with increased hydration, timed and double voids. [email or web address] Not available 01/02/2020 12:15:58 06/25/2020 06/25/2020 We discussed UTI prevention with adequate hydration, timed and double voids, suppressive medications. We will alternate between Bactrim single strength and Macrobid for suppression. [email or web address] Not available 06/28/2020 20:11:54 Plan of Treatment Reminders Order Date Submit Date Provider Last Modified By Organization Details Last Modified Time Details Appointments FOLL OW UP DAK 2025 01:30P Jenny BATES NP Not available Not available Not available Lab trenton jimenezs tick 2019 020 [email or web address] [facility], [address], [place], [address], 06/25/2020 12:11:09 lebron jimenez , auto 2019 020 [email or web address] [facility], [address], [place], [address], 02/05/2020 12:59:08 Referral None shailesh rded . Procedures None shailesh rded . Surgeries None shailesh rded . Imaging None shailesh rded . Medication Orders tret inoi n 0.1 % topi sugar crea m 2024 025 [facility] [address], [address] [place] [address], [address], 11/13/2024 15:38:22 tria mcin olon e acet onid e 0.1 % topi sugar oint ment 2024 025 [email or web address] [facility], [address] [place], [address], 11/13/2024 15:32:41 Bact rim 400 mg-8 0 mg tabl et [email or web address] [place], [place] [address], [address] [place], [address], 09/09/2023 13:50:39 nitr ofur anto in mono hydr ate/ macr ocry stal s 100 mg caps ule 2019 020 INTERFACE [facility], [address] [place] [address], [address], 01/02/2020 12:16:38 Patient TargetsNo targets recorded. Patient Instructions Encounter Date Encounter Id Patient Instructions Last Modified By Organization Details Last Modified Time 01/02/2020 [id number] learning about healthy weight [email or web address] Not available 01/02/2020 12:15:59 Reason for Referral None Reported. Results Created Date Observation Date Name Description Value Unit Range Abnormal Flag Note LastModifiedBy Organization Detail LastModifiedTime 06/25/2006/25/2020 urina lysis , dipst ick Unknown Analyte Yellow Not Available [facility] [address], [place], [address], 06/25/2020 10:43:42 06/25/20 20 06/25/2020 urina lysis , dipst ick Unknown Analyte Clear Not Available [facility] [address] [place] [address] [address], [place], [address], 06/25/2020 10:43:42 06/25/20 20 06/25/2020 urina lysis , dipst ick Unknown Analyte 1.010 Not Available [facility] [address], [place], [address], 06/25/2020 10:43:42 06/25/20 20 06/25/2020 urina lysis , dipst ick Unknown Analyte 1.003 - 1.035 Not Available [facility] [address], [place], [address], 06/25/2020 10:43:42 06/25/20 20 06/25/2020 urina lysis , dipst ick Unknown Analyte 6.5 Not Available [facility] [address], [place], [address], 06/25/2020 10:43:42 06/25/20 20 06/25/2020 urina lysis , dipst ick Unknown Analyte 5.0 - 8.0 Not Available [facility] [address], [place], [address], 06/25/2020 10:43:42 06/25/20 20 06/25/2020 urina lysis , dipst ick Unknown Analyte 75 Mayur/ul (+) Not Available [facility] [address] [place] [address] [address], [place], [address], 06/25/2020 10:43:42 06/25/20 20 06/25/2020 urina lysis , dipst ick Unknown Analyte Negati ve Not Available [facility] [address], [place], [address], 06/25/2020 10:43:42 06/25/20 20 06/25/2020 urina lysis , dipst ick Unknown Analyte Negati ve Not Available [facility] [address], [place], [address], 06/25/2020 10:43:42 06/25/20 20 06/25/2020 urina lysis , dipst ick Unknown Analyte Negati ve Not Available [facility] [address], [place], [address], 06/25/2020 10:43:42 06/25/20 20 06/25/2020 urina lysis , dipst ick Unknown Analyte Negati ve Not Available [facility] [address], [place], [address], 06/25/2020 10:43:42 06/25/20 20 06/25/2020 urina lysis , dipst ick Unknown Analyte Negati ve - Trace Not Available [facility] [address], [place], [address], 06/25/2020 10:43:42 06/25/20 20 06/25/2020 urina lysis , dipst ick Unknown Analyte Normal Not Available [facility] [address], [place], [address], 06/25/2020 10:43:42 06/25/20 20 06/25/2020 urina lysis , dipst ick Unknown Analyte Normal Not Available [facility] [address], [place], [address], 06/25/2020 10:43:42 06/25/20 20 06/25/2020 urina lysis , dipst ick Unknown Analyte Negati ve Not Available [facility] [address], [place], [address], 06/25/2020 10:43:42 06/25/20 20 06/25/2020 urina lysis , dipst ick Unknown Analyte Negati ve Not Available [facility] [address], [place], [address], 06/25/2020 10:43:42 06/25/20 20 06/25/2020 urina lysis , dipst ick Unknown Analyte Normal Not Available [facility] [address], [place], [address], 06/25/2020 10:43:42 06/25/20 20 06/25/2020 urina lysis , dipst ick Unknown Analyte Normal - 1mg/dl Not Available [facility] [address], [place], [address], 06/25/2020 10:43:42 06/25/20 20 06/25/2020 urina lysis , dipst ick Unknown Analyte Negati ve Not Available [facility] [address], [place], [address], 06/25/2020 10:43:42 06/25/20 20 06/25/2020 urina lysis , dipst ick Unknown Analyte Negati ve Not Available [facility] [address], [place], [address], 06/25/2020 10:43:42 06/25/20 20 06/25/2020 urina lysis , dipst ick Unknown Analyte Negati ve Not Available [facility] [address], [place], [address], 06/25/2020 10:43:42 06/25/20 20 06/25/2020 urina lysis , dipst ick Unknown Analyte Negati ve Not Available [facility] [address], [place], [address], 06/25/2020 10:43:42 06/25/20 20 06/25/2020 urina lysis , dipst ick Unknown Analyte Clean Catch Not Available [facility] [address] [facility] [address], [place], [address], 06/25/2020 10:43:42 06/25/20 20 06/25/2020 urina lysis , dipst ick Unknown Analyte Automa [email or web address] Not Available [facility] [address] [facility] [address], [place], [address], 06/25/2020 10:43:42 01/02/20 20 01/02/2020 urina lysis , dipst ick, auto Unknown Analyte Yellow Not Available [facility] [address], [place], [address], 01/02/2020 12:49:56 01/02/20 20 01/02/2020 urina lysis , dipst ick, auto Unknown Analyte Clear Not Available [facility] [address], [place], [address], 01/02/2020 12:49:56 01/02/20 20 01/02/2020 urina lysis , dipst ick, auto Unknown Analyte 1.005 Not Available [facility] [address] [place] [address] [address], [place], [address], 01/02/2020 12:49:56 01/02/2001/02/2020 urina lysis , dipst ick, auto Unknown Analyte 1.003 - 1.035 Not Available [facility] [address] [facility] [address], [place], [address], 01/02/2020 12:49:56 01/02/2001/02/2020 urina lysis , dipst ick, auto Unknown Analyte 7.0 Not Available [facility] [address], [place], [address], 01/02/2020 12:49:56 01/02/2001/02/2020 urina lysis , dipst ick, auto Unknown Analyte 5.0 - 8.0 Not Available [facility] [address], [place], [address], 01/02/2020 12:49:56 01/02/2001/02/2020 urina lysis , dipst ick, auto Unknown Analyte Negati ve Not Available [facility] [address] [place] [address] Rd [address], [place], [address], 01/02/2020 12:49:56 01/02/2001/02/2020 urina lysis , dipst ick, auto Unknown Analyte Negati ve Not Available [facility] [address], [place], [address], 01/02/2020 12:49:56 01/02/2001/02/2020 urina lysis , dipst ick, auto Unknown Analyte Negati ve Not Available [facility] [address], [place], [address], 01/02/2020 12:49:56 01/02/2001/02/2020 urina lysis , dipst ick, auto Unknown Analyte Negati ve Not Available [facility] [address], [place], [address], 01/02/2020 12:49:56 01/02/2001/02/2020 urina lysis , dipst ick, auto Unknown Analyte Negtiv e Not Available [facility] [address], [place], [address], 01/02/2020 12:49:56 01/02/2001/02/2020 urina lysis , dipst ick, auto Unknown Analyte Negati ve - Trace Not Available [facility] [address], [place], [address], 01/02/2020 12:49:56 01/02/2001/02/2020 urina lysis , dipst ick, auto Unknown Analyte Normal Not Available [facility] [address] [place] [address] [address], [place], [address], 01/02/2020 12:49:56 01/02/2001/02/2020 urina lysis , dipst ick, auto Unknown Analyte Normal Not Available [facility] [address], [place], [address], 01/02/2020 12:49:56 01/02/2001/02/2020 urina lysis , dipst ick, auto Unknown Analyte Negati ve Not Available [facility] [address] [place] [address] [address], [place], [address], 01/02/2020 12:49:56 01/02/2001/02/2020 urina lysis , dipst ick, auto Unknown Analyte Negati ve Not Available [facility] [address], [place], [address], 01/02/2020 12:49:56 01/02/2001/02/2020 urina lysis , dipst ick, auto Unknown Analyte Normal Not Available [facility] [address] [facility] [address], [place], [address], 01/02/2020 12:49:56 01/02/20 20 01/02/2020 urina lysis , dipst ick, auto Unknown Analyte Normal - 1mg/dl Not Available [facility] [address] [address], [place], [address], 01/02/2020 12:49:56 01/02/2001/02/2020 urina lysis , dipst ick, auto Unknown Analyte Negati ve Not Available [facility] [address], [place], [address], 01/02/2020 12:49:56 01/02/2001/02/2020 urina lysis , dipst ick, auto Unknown Analyte Negati ve Not Available [facility] Urology [facility] [address] [facility] [address], [place], [address], 01/02/2020 12:49:56 01/02/20 20 01/02/2020 urina lysis , dipst ick, auto Unknown Analyte Negati ve Not Available [facility] [address] [facility] [address], [place], [address], 01/02/2020 12:49:56 01/02/2001/02/2020 urina lysis , dipst ick, auto Unknown Analyte Negati ve Not Available [facility] [address], [place], [address], 01/02/2020 12:49:56 01/02/2001/02/2020 urina lysis , dipst ick, auto Unknown Analyte Clean Catch Not Available [facility] [address], [place], [address], 01/02/2020 12:49:56 01/02/2001/02/2020 urina lysis , dipst ick, auto Unknown Analyte Automa [email or web address] Not Available [facility] [address] [place] [address] [address], [place], [address], 01/02/2020 12:49:56 Result Notes None recorded. 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 Procedures Surgical History Date Name Laterality Status Provider Name and Address Organization Details Recorded Time 11/13/19 25 DAK - Acne Surgery completed Farnaz Trimble [facility] 11/13/2024 14:39:54 08/09/20 17 Date of Last Pap Smear completed Holden Gomez [facility] 08/13/2017 13:59:24 07/15/20 17 Post Void Residual; Ultrasound completed [facility] 07/15/2017 11:24:07 11/01/18 95 Hysterectomy completed Deirdre [facility] 07/15/2017 10:51:18 delivery completed Sosa Machado [facility] 07/14/2018 15:37:37 Imaging Results None recorded. Procedure Notes None recorded. Medical Equipment None Reported. Allergies Allergen ID Allergen Name Allergen Category Reaction Reaction Severity Criticality Documentation Date Start Date Code Code System Note Provider Name and Address Organization Details Recorded Time 779357 Bactrim medicatio n Not available Not available Not available 09/05/2019 19570 9 RxNorm ALIYAH JUDGE MD [address] [place] [address], [address] , [facility] 0 12:11:16 Medications Name Sig Start Date [...] triamcino lone acetonide 0.1 % topical ointment active Not Available Not Available Not Available promethaz ine 25 mg tablet Take by [...] Updated DateTime 01/02/2020 157.48 cm 51.9 kg/m2 192285.23 g Dianelys Haile [facility] 01/02/2020 11:56:26 Date Recorded Body height Body mass index (BMI) Body weight Systolic And Diastolic Provider Name and Address Organization Details Last Updated DateTime 04/12/2024 157.48 cm 39.9 kg/m2 82686.14 g 117/79 mm[Hg] Mana Anderson [facility] 04/12/2024 11:12:14 Date Recorded Body height Body mass index (BMI) Body weight Provider Name and Address Organization Details Last Updated DateTime 06/25/2020 157.48 cm 51.9 kg/m2 424973.23 g Freddieeriee Echo [facility] 06/25/2020 10:43:21 Social History Question Answer Notes LastModified by Organizat ion Details LastModified Time Tobacco Smoking Status Never Smoker Deirdre hilton, [facility] 07/15/2017 10:51:06 What Is Your Level Of Caffeine Consumption? Moderate Information not available 08/09/2017 How Much Tobacco Do You Chew? None Information not available 01/02/2019 Marital Status Informatio n not available 08/09/2017 What Was The Date Of Your Most Recent Tobacco Screening? 05/05/2019 Information not available 12/19/2019 How Much Tobacco Do You Smoke? No [email or web address] Information not available 01/02/2020 Has Tobacco Cessation Counseling Been Provided? No Information not available 09/12/2018 Sex: Female Functional Status Question Answer Note LastModified by Organizat ion Details LastModified Time Do you use any illicit or recreational drugs? No [email or web address] Information not available 09/09/2023 Do you or have you ever used any other forms of tobacco or nicotine? No [email or web address] Information not available 04/12/2024 What is your level of alcohol consumption? Occasional Information not available 08/09/2017 Mental Status None recorded. Family History Relationship Description Onset Age of this Age Resolved Age Notes LastModified by Organization Details LastModified Time Sister Diabetes mellitus [email or web address] Not available 2017 15:37:13 Sister Malignant tumor of breast 60 had lumpec aaron as well as lymph nodes remove d [email or web address] Not available 04/12/2024 11:09:50 Notes:diabetes, heart diseas e, stroke Medical History Condition Response Depression Y Pneumonia Y Anxiety Disorder Y Acid Reflux (GERD) Y Cancer N Stroke N Other Skin Condition Y Urinary Tract Infection Y Asthma Y Deep Vein Thrombosis N High Cholesterol Y Chronic Obstructive Pulmonary Disease Y Thyroid Problems Y Heart Attack (ME) N Diabetes Y Hyperlipidemia Y Sleep Apnea Y Bronchitis Y Hypertension N Gynecological History Statement/Question Response Abnormal Pap N [...] ICD10 Code Diagnosis IMO Codes Diagnosis Note [id number] MUNIR LOVING MD [facility] [address] [place] [address] 07/15/2017 10:36:45 07/16/2017 11:48:08 History of urinary tract infection 0498016814 107 Z87.440 Backache 805532310 M54.9 Type 1 eloisa betes mellitus 54023667 E10.9 Acute kidney injury 1466 9001 N17.9 [id number] NAEL MAK MD [facility] [address] [place] [address] 08/09/2017 11:08:46 08/09/2017 11:51:37 Routine gynecologic examination done 7089816986 9101 Z01.419 mammo up to date pap done ovaries removed. Screening for malignant neoplasm of colon 217563784 Z12.11 Atrophic vaginitis 75426 000 N95.2 [id number] ALIYAH JUDGE MD [facility] [address] [facility],[place] [address] 07/14/2018 13:53:43 07/27/2018 15:01:17 Urinary tract infectious disease 97184496 N39.0 [id number] ALIYAH JUDGE MD [facility] [address] [facility],[place] [address] 08/11/2018 15:39:47 08/22/2018 09:13:26 Urinary tract infectious disease 89097450 N39.0 [id number] JOANIE GEORGES JR, MD [facility] [address] 08/22/2018 10:41:42 08/22/2018 11:12:02 Urinary tract infectious disease 80912131 N39.0 [id number] ALIYAH JUDGE MD [facility] [address] [place], [place] [address] 0 09/12/2018 13:56:42 09/12/2018 14:21:48 Recurrent urinary tract infection 563986116 N39.0 [id number] ALIYAH JUDGE MD [facility] [address] [place] [address] 09/28/2018 13:25:38 09/28/2018 14:30:30 Recurrent urinary tract infection 406132564 N39.0 [id number] ALIYAH JUDGE MD SURGERY SCHEDULE [address] [place] [address] 10/04/2018 14:35:45 10/04/2018 14:37:38 [id number] ALIYAH JUGDE MD [facility] [address] [facility] [address] [place] [address] 01/02/2019 13:41:50 01/02/2019 14:09:20 Recurrent urinary tract infection 625442402 N39.0 [id number] ALIYAH JUDGE MD [facility] [address] [place] [address] RD[address] [place] [address] 05/05/2019 11:26:04 05/05/2019 12:44:51 Recurrent urinary tract infection 551214739 N39.0 [id number] NAEL MAK MD [facility] [address] [place] [address] RD[address] [place] [address] 08/14/2019 11:02:50 08/14/2019 12:55:04 Routine gynecologic examination done 2507892190 9101 Z01.419 Pap is UTD, last done in 2017. Prior hysterecto my. This should be good for 5 years. Exam normal today. Screening for malignant neoplasm of breast 048481300 Z12.31 mammogram needs to be updated. Gets these done at [facility]. Will request a copy of her last mammogram from [facility]. Atrophic vaginitis 41377 000 N95.2 -Educated patient to try and use coconut oil to help with vaginal dryness. Patient has a vaginal estrogen cream she can use this which will aid in the symptoms she is discussing . Or may try the coconut well. [id number] ALIYAH JUDGE MD [facility] [address] [facility] [address] [place] [address] 09/05/2019 11:27:49 09/05/2019 12:27:31 Recurrent urinary tract infection 827886490 N39.0 [id number] ALIYAH JUDGE MD [facility] [address] [place] [address] 01/02/2020 11:25:49 01/02/2020 12:15:28 Recurrent urinary tract infection 655452434 N39.0 [id number] ALIYAH JUDGE MD [facility] [address] [place] [address] 06/25/2020 10:17:21 06/25/2020 10:57:11 Recurrent urinary tract infection 671814822 N39.0 [id number] WILL Fuentes, MEGAN DAK [facility] [address] [place] [address] 09/09/2023 13:36:40 09/09/2023 14:29:00 Multiple benign melanocytic nevi [id number] D22.5 - Benign moles seen on exam [...] changing or worrisome lesions Seborrheic keratosis 394 573473 L82.1 - Benign overgrowth s of skin - 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 Ok to stop using Rx TAC.Rec to re-start Rx TAC if pnt has a flare up again.Cont gentle skin care.Call with questions or concerns. [id number] ELISHA NEW APRN-[facility] [address] [place] [address] 04/12/2024 10:52:06 04/12/2024 12:53:30 Cyst of vulva 09703688 N90.7 Informed no need to do anything about the 2 sebaceous cysts on the right, outer labia majora unless they bother her. I recommende d she schedule an annual exam. [id number] MEGAN [facility] [address] [place] [address] 11/13/2024 14:00:01 11/13/2024 14:53:11 Multiple benign melanocytic nevi [id number] D22.5 - Benign moles seen on exam [...] changing or worrisome lesions Seborrheic keratosis 394 557256 L82.1 - Benign overgrowth s of skin - Hereditary Senile angioma 7844400 I 78.1 - Benign blood vessel growths - Hereditary Solar lentigo 03196567 L 81.4 - Benign brown spots - Sun-induce d Nummular eczema 88578239 L30.0 Controlled with Rx TAC 0.1% topical ointment. Will RF TAC 0.1% ointment to use BID x 2 weeks, PRN with flares.Con t gentle skin care.Call with questions or concerns. Milia 115578688 L72.0 L53.8 Benign small cysts. Seen commonly [...] ID Guarantor Name 11/10/2024 1 [employer] [id number] Bhavana Monteiro [id number] Lena Agrawal [place] Notes Date Note Type Note Provider Name and Address Organization Details Recorded Time 01/02/2020 text/html 64-year-old female in the office for follow-up evaluation of recurrent urinary infections. She denies bothersome symptoms. She takes daily suppressive Macrobid and uses Premarin vaginal cream. She voids every 2 hours with nocturia once nightly. No hematuria or dysuria. ALIYAH JUDGE MD [address] [place] [address], [phone], [facility] 02/05/2020 12:59:15 06/25/2020 text/html 64-year-old female in the office for follow-up evaluation of recurrent urinary infections. She voids every 2 hours with nocturia one to 2 times nightly. No gross hematuria or dysuria. She has been taking suppressive Macrobid and using topical vaginal estrogen cream. She requests to change from Macrobid to Bactrim for suppression due to potential pulmonary risks of long-term Macrobid. ALIYAH JUDGE MD [address] [place] [address] [place], [address], [facility] 06/28/2020 20:12:18 09/09/2023 text/html ROS as noted in the HPI RashB/l legsongoing x 3 weeksCurrently tx with TACImproved since last visitNoticing peeling of the skin but feels this is not nearly as red as it was 2 weeks ago FSEOver the entire bodyOver 6 years since last FSENo personal hx of skin cxNo areas of concern WILL BATES, BRAKE DRUM MOLDER [address] [place] [address], [address], [facility] 09/09/2023 14:27:42 04/12/2024 text/html 68yo presents for a growth on her vulva, says it [...] not want to do that today ELISHA NEW, MEGAN-NP [address] [place], [address], [facility] 04/12/2024 12:35:16 11/13/2024 text/html ROS as noted in the HPI Here for a full body skin examination - last skin check: 09/2023- no history of skin cancer- spots of concern today: I have some millia on my face and a spot on the back of my head. WILL BATES, MEGAN [address] [place], [address], [facility] 11/13/2024 15:39:24 OBGyn Episode No OBEpisode recorded.
--- OUTSIDE RECORDS SUMMARY | 2025-07-30 09:15 | XMS_ITS | Encounter Summary ---
Demographics Address [address] [place] [address] Home Phone Mobile Phone Email Address Preferred Language en Marital Status Pentecostalism Affiliation Unknown Race White Ethnic Group Not or Lati no Author Organization [facility] Address [address] [place] [address] Care Team Providers Care Shift Supervisor Melting Name Role Phone Simone To MD Primary [...] Info) Description 08/14/2025 12:40 PM EDT Consult [facility] Otolaryngology [address], [address] [place] [address] Glen Domínguez MD [address] [place] [address] 01/08/2026 11:10 AM EDT Office Visit [facility] [address], [address] [place] [address] Nikolay Carson MD [address] [place] [address] documented as of this encounter Visit Diagnoses Not on filedocumented in this encounter Additional Health Concerns Assessment Noted Time A fall risk assessment has been complete d for the patient 01/03/2025 12:43 PM EST A Body Mass Index follow-up plan has been documented for the patient 07/11/2025 3:04 PM EDT documented as of this encounter Care Teams Shift Supervisor Melting Relationship Specialty Start Date End Date Simone To MD PCP - General Family Medicine 06/19/22 documented as of this encounter
--- OUTSIDE RECORDS SUMMARY | 2025-07-30 09:15 | XMS_ITS | Encounter Summary ---
[facility] Organization [facility] Address [address] [place] [address] Care Team Providers Care Drill Grinder Name Role Phone Simone To MD Primary Care Provider +1- [phone] Reason for Visit * Reason Comments Med Refill Encounter Details Date Type Department Care Team (Late st Contact Info) Description 07/23/2025 Refill [facility] ENDOCRINOLOGY [address] [place] [phone] Emiliano Austin MD [address] [place], [place] [id number] Social History Tobacco Use Types Packs/Day Years [...] Description 01/11/2026 11:30 AM EDT Office Visit [facility] [address] [facility] [address] [place] [address] Emiliano Ausitn MD [address] [place] [address] documented as of this encounter Visit Diagnoses Not on filedocumented in this encounter Care Teams Drill Grinder Relationship Specialty Start Date End Date Simone To MD PCP - General Family Medicine 07/28/22 documented as of this encounter
--- OUTSIDE RECORDS SUMMARY | 2025-07-30 09:15 | XMS_ITS | Encounter Summary ---
Author Organization [facility] Address [address] [place] [id number] Care Team Providers Care Sales Project Administrator Name Role Phone Simone To MD Primary Care Provider +1- [phone] Reason for Visit * Reason Comments Med Refill Encounter Details Date Type Department Care Team (Late st Contact Info) Description 03/29/2023 Refill [facility] ENDOCRINOLOGY [address] [place] [address] Rossy Rome PA Class 3 [...] Description 01/11/2026 11:30 AM EDT Office Visit [facility] ENDOCRINOLOGY [address] [place] [address] Emiliano Austin MD [address] [place] [address] documented as of this encounter Visit Diagnoses Diagnosis Class 3 severe obesity due to excess calories with serious comorbidity and body mass index (BMI) of 45.0 to 49.9 in adult documented in this encounter Care Teams Sales Project Administrator Relationship Specialty Start Date End Date Simone To MD PCP - General Family Medicine 07/28/22 documented as of this encounter
--- OUTSIDE RECORDS SUMMARY | 2025-07-30 09:15 | XMS_ITS | Encounter Summary ---
[facility] Address [address] [place] [id number] Care Team Providers Care Grounds Manager Name Role Phone Simone To MD Primary Care Provider +1- [phone] Reason for Visit * Reason Onset Date Comments Med Refill 06/25/2025 Encounter Details Date Type Department Care Team (Late st Contact Info) Description 06/25/2025 Refill [facility] ENDOCR[facility]OLOGY [address] [facility] [address] [place] [address] Emiliano Austin MD [address] [facility] [address] [place] [address] Class 3 severe obesity due to excess [...] 11:30 AM EDT Office Visit [facility] ENDOCRINOLOGY [address] [address] Emiliano Austin MD [address] [id number] documented as of this encounter Visit Diagnoses Diagnosis Class 3 severe obesity due to excess calories with serious comorbidity and body mass index (BMI) of 40.0 to 44.9 in adult documented in this encounter Care Teams Grounds Manager Relationship Specialty Start Date End Date Simone To MD PCP - General Family Medicine 07/28/22 documented as of this encounter
--- OUTSIDE RECORDS SUMMARY | 2025-07-30 09:15 | XMS_ITS | Encounter Summary ---
Author Organization [facility] Address [address] [place] [id number] Care Team Providers Care Needle Leader Name Role Phone Simone To MD Primary Care Provider +1- [phone] Encounter Details Date Type Department Care Team (Late st Contact Info) Description 03/31/2025 Results Follow-Up [facility] ENDOCRINOLOGY [address] [place] [address] Emiliano Austin MD [address] [place] [address] Social History Tobacco Use Types Packs/Day Years [...] Description 01/11/2026 11:30 AM EDT Office Visit [facility] ENDO[facility] [address] [place] [address] Emiliano Austin MD [address] [place] [address] documented as of this encounter Visit Diagnoses Not on filedocumented in this encounter Care Teams Needle Leader Relationship Specialty Start Date End Date Simone To MD PCP - General Family Medicine 07/28/22 documented as of this encounter
--- OUTSIDE RECORDS SUMMARY | 2025-07-30 09:15 | XMS_ITS | Encounter Summary ---
[facility] Address [address] [place] [address] Care Team Providers Care Solder Deposit Operator Name Role Phone Simone To MD Primary Care Provider +1- [phone] Encounter Details Date Type Department Care Team (Late st Contact Info) Description 06/29/2025 Telephone [facility] ENDOCRINOLOGY [address] [place] [phone] Emiliano Austin MD [address] [place], [place] [phone] Social History Tobacco Use Types Packs/Day Years [...] Visit [facility]CR[facility] [address] [facility] [facility] [address] [place] [address] Emiliano Austin MD [address] [place] [address] documented as of this encounter Visit Diagnoses Not on filedocumented in this encounter Care Teams Solder Deposit Operator Relationship Specialty Start Date End Date Simone To MD PCP - General Family Medicine 07/28/22 documented as of this encounter
--- OUTSIDE RECORDS SUMMARY | 2025-07-30 09:15 | XMS_ITS | Encounter Summary ---
Author Organization [facility] Address [address] [place] [address] Care Team Providers Care Autocutter Name Role Phone Simone To MD Primary Care Provider Genia vailable Reason for Visit * Reason Comments Med Refill Encounter Details Date Type Department Care Team (Late st Contact Info) Description 07/23/2025 Refill [facility] [address] [place] [address] Nikolay Carson MD [address] [place] [address] Sjogren syndrome with keratoconjunctivitis (CMS/HCC) [...] Info) Description 08/14/2025 12:40 PM EDT Consult [facility] [address], [address] [place] [address] Glen Domínguez MD [address] [place] [address] 01/08/2026 11:10 AM EDT Office Visit [facility] Medicine Specialties [address], [address] [place] [address] Nikolay Carson MD [address] [facility] [address] [place] [address] documented as of this encounter Visit Diagnoses Diagnosis Sjogren syndrome with keratoconjunctivitis (CMS/HCC) documented in this encounter Additional Health Concerns Assessment Noted Time A fall risk assessment has been complete d for the patient 01/03/2025 12:43 PM EST A Body Mass Index follow-up plan has been documented for the patient 07/11/2025 3:04 PM EDT documented as of this encounter Care Teams Autocutter Relationship Specialty Start Date End Date Simone To MD PCP - General Family Medicine 06/19/22 documented as of this encounter
--- OUTSIDE RECORDS SUMMARY | 2025-07-30 09:15 | XMS_ITS | Data Portability ---
Author Organization [facility] Address [address] [place] [address] Care Team Providers Care Cinder Dump Crane Operator Name Role Phone NICKY CISSE Primary Care Provider [phone] Assessment No assessment recorded. Plan of Treatment [...] audio gram No observ ation record ed. [email or web address] Not Available 2024 14:52:07 Result Notes None recorded. Problems Name Problem SNOMED Code Status Onset Date Resolution Date Notes Provider Name and Address Organization Details Recorded Time Sensorineural hearing loss [id number] Active 2024 MIGUEL VELAZQUEZ, AUD [address] [facility], [place], [address] , [facility] [place] 14:50:25 Problem Notes None recorded. Medical Equipment [...] ICD10 Code Diagnosis IMO Codes Diagnosis Note [id number] CARLIE JARRETT [facility] [place] [address] 07/22/2022 10:29:51 07/22/2022 10:38:06 Sensorineural hearing loss 32606204 H90.3 [id number] CARLIE JARRETT [facility] [place] [address] 03/07/2025 14:36:23 03/07/2025 14:52:15 Sensorineural hearing loss 85079424 H90.3 [id number] CARLIE JARRETT [facility] [place] [address] 04/04/2025 13:07:48 04/04/2025 13:16:19 Sensorineural hearing loss 16071435 H90.3 Health Concerns Section Related Observation LastModified by Organization Detai ls LastModified Time None Recorded Concern Status LastModified by Organization Details LastModified Time None Recorded Advance Directives Directive None Recorded Payers Insurance Date Sequence Insurance Name Policy Number Policy Mcclellan Covered Member ID Mcclellan Member ID Guarantor Name 07/21/2019 1 [facility] ([place]) [id number] Angel Monteiro [id number] Lena Monteiro 04/01/2025 1 [facility] ([place] [id number] A Angel Monteiro [id number] Lena Monteiro Notes Date Note Type Note Provider Name and Address Organization Details Recorded Time 07/22/2022 text/html DizzinessReporte d by Patient Hearing Loss - AdultReported by PatientROS as noted in the HPI Ms. Monteiro was seen today for a hearing aid service. CARLIE JARRETT [address] , [place], [address], [facility] [place] 07/22/2022 10:37:58 03/07/2025 text/html Ms. Monteiro was [...] arrive. MIGUEL VELAZQUEZ, CARLIE [address] , [place], [address], [facility] [place] 03/07/2025 14:52:10 04/04/2025 text/html Ms. Monteiro was seen today for a hearing aid fitting. CARLIE JARRETT [address] , [place], [address], [facility] [place] 04/04/2025 13:18:57 OBGyn Episode No OBEpisode recorded.
--- OUTSIDE RECORDS SUMMARY | 2025-07-30 09:15 | XMS_ITS | Clinical Summary ---
Author Organization [facility] Address [address] [place] [address] Care Team Providers Care Drafter Apprentice Name Role Phone Simone To MD Primary Care Provider +1- [phone] Allergies Active Allergy Reactions Criticality Noted Date Comments Lisinopril Cough Low 04/26/2023 Medications aspirin 81 MG tablet Take by mouth. 015 Active glucose blood test stripIndications: Type 2 diabetes mellitus without complication, unspecified press tender long goods insulin use status OneTouch Ultra Blue In [...] Date Type Department Care Team Description 07/23/2025 [facility] ENDOCRINOLOGY [address] [place] [address] Emiliano Austin MD 06/29/[address] [facility] ENDOCRINOLOGY [address] [place] [address] Emiliano Austin MD 06/25/2025 [facility] ENDOCRINOLOGY [address] [place] [address] Emiliano Austin MD Class 3 severe obesity due to excess calories with serious comorbidity and body mass index (BMI) of 40.0 to 44.9 in adult 06/04/2025 [facility] ENDOCRINOLOGY [address] [place] [address] Emiliano Austin MD Type 1 diabetes mellitus with hyperglycemia 05/15/[address] [facility] END[facility]CR[facility]OLOGY [address] [facility] [address] [place] [address] Emiliano Austin MD [employer] Approval 05/07/[address] [facility] END[facility]CR[facility]OLOGY [address] [facility] [address] [place] [address] Emiliano Austin MD Type 1 diabetes mellitus [...] AM EDT Office Visit [facility] [address] [place] [address] Emiliano Austin MD [address] [place] [address] Health Maintenance Due Date Last Done Comments DXA SCAN 1956 MAMMOGRAM 1996 COLOGUARD 2001 COLON CANCER SCREENING 5 YEA R SIGMOIDOSCOPY 2001 COLONOSCOPY 2001 COL[address]AL CANCER SCREENING 2001 CT COLONOGRAPHY 2001 FECAL OCCULT BLOOD TEST 2001 FIT Testing (1 year) 2001 ZOSTER VACCINE (1 of 2) 2006 ANNUAL PHYSICAL 02/25/2016 HEPATITIS C SCREENING 02/25/2016 CLAIMS DIRECTOR PLAN OF CARE 11/17/2016 INFLUENZA VACCINE 06/01/2025 [...] - 200 mg/dL 03/30/2025 11:35 PM EDT [facility] Triglycerides 38 0 - 150 mg/dL 03/30/2025 11:35 PM EDT [facility] HDL Cholesterol 131(H) 40 - 60 mg/dL 03/30/2025 11:35 PM EDT [facility] LDL Cholesterol 57 0 - 100 mg/dL 03/30/2025 11:35 PM EDT [facility] VLDL Cholesterol 8 5 - 40 mg/dL 03/30/2025 11:35 PM EDT [facility] LDL/HDL Ratio 0.44 03/30/2025 11:35 PM EDT [facility] Blood Structure of left upper limb / Unknown Venipuncture / Unknown 03/30/2025 11:54 AM EDT 03/30/2025 11:54 AM EDT Narrative [facility] - 03/30/2025 11:35 PM EDT Cholesterol [...] Austin MD LAB BLOOD ORDERABLES Final Result [facility]
[address] [place] [address], * POC Glycosylated Hemoglobin (Hb A1C) (03/30/2025 11:42 AM EDT) Hemoglobin A1C 5.5 4.5 - 5.7 % [facility] Lot Number [id number] [facility] Expiration Date 12/27/2026 [facility] Blood 03/30/2025 11:4 2 AM EDT Emiliano Austin MD POINT OF CARE TEST ORDERABL ES Final Result [facility]
[address] [place] [address], * Microalbumin / Creatinine Urine Ratio - Urine, Clean Catch (07/30/2023 10:07 AM EDT) Microalbumin/C reatinine Ratio 11.7 mg/g 07/30/2023 7:27 PM EDT [facility] Creatinine, Urine 162.6 mg/dL 07/30/2023 7:27 PM EDT [facility] Microalbumin, Urine 1.9 mg/dL 07/30/2023 7:27 PM EDT [facility] Urine Urine specimen obtained by clean catch procedure / Unknown Collection / Unknown 07/30/2023 10:07 AM EDT 07/30/2023 10:08 AM EDT Emiliano Austin MD URINE ORDERABLES Final Resu lt [facility]
[address] [place] [address], * SCANNED - EYE EXAM (01/26/2023) Anatomical Region Laterality Modality Other Itzel Hodges MD CHART REVIEW TABS Kori l Result from Last 3 Months or Most Recently Relevant to Health Maintenance Insurance PPO Care Teams Drafter Apprentice Relationship Specialty Start Date End Date Simone To MD PCP - General Family Medicine 07/28/22
--- OUTSIDE RECORDS SUMMARY | 2025-07-30 09:15 | XMS_ITS | Clinical Summary ---
Demographics Address [facility] [address] [place] [address] Home Phone Mobile Phone Email Address Preferred Language en Marital Status Baptist Affiliation Unknown Race White Ethnic Group Not or Lati no Author Organization [facility] Address [address] [place] [address] Care Team Providers Care Bait Maker Name Role Phone Simone To MD Primary [...] each day. 2023 Active Continuous Glucose Sensor ([employer] G7 Sensor) misc 2023 Active insulin glargine-yfgn [...] 0.1 % ointment 2023 Active HYDROcodone-acetaminop hen (Larimore) 5-325 MG tablet Take 1 tablet (5 [...] Type Department Care Team Description 07/23/2025 Refill [facility] Medicine Specialties [address], [address] [place] [address] Nikolay Carson MD Sjogren syndrome with keratoconjunctivitis (CMS/HCC) 07/09/2025 11:10 AM EDT Office Visit [facility] Medicine Specialties [address] [place] [address] Nikolay Carson MD Sjogren syndrome with keratoconjunctivitis [...] Info) Description 08/14/2025 12:40 PM EDT Consult [facility] [address], [address] [place] [address] Glen Domínguez MD [address] [place] [address] 01/08/2026 11:10 AM EDT Office Visit [facility] [address], [address] [place] [address] Nikolay Carson MD [address] [place] [address] Health Maintenance Due Date Last [...] - Risk 60-74 years 1-dose series) 2016 [id number] Vaccine (4 - 2024- season) 2025 07/03/2021, [...] to complete this topic [place] [address] Care Teams Bait Maker Relationship Specialty Start Date End Date Simone oT MD PCP - General Family Medicine 06/19/22
== END 2025-07-26 23:59 ==
LOC: LAB.DROPOF 07-30 09:07
PROVIDERS: PCP Family Medicine; Visit Provider Family Medicine
DX: M54.9 Dorsalgia, unspecified (principal); R39.9 Unspecified symptoms and signs involving the genitourinary system
CPT/HCPCS: 87086

== ENCOUNTER 2025-07-27 11:06 | Outpatient (CLI) | payer BC, SELFPAY ==
--- OUTSIDE RECORDS SUMMARY | 2018-01-14 20:00 | XMS_ITS | Encounter Summary ---
Author Organization [facility] Address [address] [place] [address] Care Team Providers Care Spring Fitter Name Role Phone Nicolette Gates MD Primary Care Provider [phone] Reason for Referral * Hospital - Outpatient (Routine) - Closed Specialty Diagnoses / Procedures Referred By Contac t Referred To Contact Sleep Medicine Diagnoses GUILLERMO (obstructive sleep apnea) Nocturnal hypoxemia Procedures Polysomnography 4 or More Parameters Polysomnography 4 or More Parameters With CPAP Alin Walter MD Phone: tel: fax: [facility] [address] [address] Phone: tel: fax: Referral ID Status Reason Start Date Expiration Date Visits Re quested Visits Authorized [id number] Closed 12/14/2017 02/24/2018 1 1 Reason for Visit * Hospital - Outpatient (Routine) - Closed Specialty Diagnoses / Procedures Referred By Contac t Referred To Contact Sleep Medicine Diagnoses GUILLERMO (obstructive sleep apnea) Nocturnal hypoxemia Procedures Polysomnography 4 or More Parameters Polysomnography 4 or More Parameters With CPAP Alin Walter MD Phone: tel: fax: [facility] [address] [address] Phone: tel: fax: Referral ID Status Reason Start Date Expiration Date Visits Re quested Visits Authorized [id number] Closed 12/14/2017 02/24/2018 1 1 Encounter Details Date Type Department Care Team (Late Contact Info) Description 01/14/2018 8:00 PM EDT Hospital Encounter [facility] [address] [place] [address] Alin Walter MD [address] [place] [address] GUILLERMO (obstructive sleep apnea); Nocturnal hypoxemia Social [...] Description 01/11/2026 11:30 AM EDT Office Visit [facility] [address] [place] [phone] Emiliano Austin MD [address] [place], [place] [address] documented as of this encounter Procedures Procedure [...] documented as of this encounter Care Teams Spring Fitter Relationship Specialty Start Date End Date Nicolette Gates MD [address] [place] [address] PCP - General 06/25/15 05/31/19 documented as of this encounter
--- OUTSIDE RECORDS SUMMARY | 2025-07-09 11:10 | XMS_ITS | Encounter Summary ---
Demographics Address [facility] [address] [place] [address] Home Phone Mobile Phone Email Address Preferred Language en Marital Status Mormon Affiliation Unknown Race White Ethnic Group Not or Lati no Author Organization [facility] Address [address] [place] [address] Care Team Providers Care Training Manager Name Role Phone Simone To MD Primary Care Provider Genia vailable Reason for Referral * Consultation (Routine) - Authorized Specialty Diagnoses / Procedures Referred By Mil etienne Referred To Contact Otolaryngology Diagnoses Sjogren syndrome with keratoconjunctivitis (CMS/HCC) Other fatigue Nikolay Carson MD [address] [address] Phone: tel: fax: [facility] [address], [address] [place] [address] Phone: tel: fax: Referral ID Status Reason Start Date Expiration Date Visits Requested Visits Authorized [id number] Authorized Specialty Services Required 07/09/2025 01/08/2027 1 1 Reason for Visit * Reason Comments Sjogren syndrome with keratoconjunctivit is (CMS/HCC) Encounter Details Date Type Department Care Team (Latest Contact Info) Description 07/09/2025 11:10 AM EDT Office Visit [facility] [address], [address] [place] [address] Nikolay Carson MD [address] [place] [phone] Sjogren syndrome with keratoconjunctivitis (CMS/HCC) (Primary Dx); [...] Patient reports she has next appointment with blower insulator in a few weeks Continues to have [...] preservative free 08/29/2016, 09/03/2021 Moderna COVID-19 Vaccine (Supervisor Propellant Charge Loading) 12+ years 12/26/2020, 01/23/2021, 07/03/2021 Pneumococcal 20-umu [...] evaluation, counseling and documentation. Nikolay Carson MD. Ordnance Truck Installation Mechanic Division of Rheumatology Department of Internal Medicine [facility] documented in this encounter Plan of Treatment Upcoming Encounters Date Type Department Care Team (Late st Contact Info) Description 08/14/2025 12:[address] [facility] Otolaryngology [address], 3rd [place] [address] Glen Domínguez MD [address] [place] [address] 01/08/2026 11:10 AM EDT Office Visit [facility] Medicine Specialties [address], [address] [place] [address] Nikolay Carson MD [address] [place] [address] Scheduled Referrals Name Type Priority [...] documented as of this encounter Care Teams Training Manager Relationship Specialty Start Date End Date Simone To MD PCP - General Family Medicine 06/19/22 documented as of this encounter
--- OUTSIDE RECORDS SUMMARY | 2025-07-27 11:09 | XMS_ITS | Clinical Summary ---
Demographics Address [facility] [address] [place] [address] Home Phone Mobile Phone Email Address Preferred Language en Marital Status Adventism Affiliation Unknown Race White Ethnic Group Not or Lati no Author Organization [facility] Address [address] [place] [address] Care Team Providers Care Quotation Checker Name Role Phone Simone To MD Primary [...] SEVERE HYPOGLYCEMIA FOR UP TO 1 DOSE 2022 Active ondansetron ODT (Zofran-ODT) 4 MG disintegrating tablet 2022 Active promethazine (Phenergan) 25 MG tablet 2022 Active ALPRAZolam (Xanax) 0.25 MG tablet 2022 Active Premarin vaginal cream 05/29 Active tretinoin (Retin-A) 0.05 % cream 2022 Active albuterol (2.5 MG/3ML) 0.083% nebulizer solution 2021 Active Airsupra 90-80 MCG/ACT aerosol Inhale 90 mL/mL 1 (one) time each day. 2023 Active Continuous Glucose Sensor (Blitz [employer] G7 Sensor) misc 2023 Active insulin glargine-yfgn 100 UNIT/ML injection pen INJECT 18 UNITS SUBCUTANEOUSLY NIGHTLY DIRECTED. IN CASE OF PUMP FAILURE, TITRATE FOR MAX DAILY DOSE OF 50 UNITS 2023 Active nitrofurantoin, macrocrystal-monohydra te, (Macrobid) 100 MG capsule 2023 Active sulfamethoxazole-trime thoprim (Bactrim DS) 800-160 MG tablet 2023 Active Zepbound 15 MG/0.5ML solution auto-injector 06/14 Active triamcinolone (Kenalog) 0.1 % ointment 2023 Active HYDROcodone-acetaminop hen (Chariton) 5-325 MG tablet Take 1 tablet (5 mg of hydrocodone) by mouth every 6 (six) hours if needed for moderate pain. 10 tablet 2023 Active Additional Information Patient not taking.Reported on 07/09/2025 terbinafine (LamISIL) 250 MG tablet 2024 Active atorvastatin (Lipitor) 40 MG tablet 2024 Active metFORMIN XR (Glucophage-XR) 500 MG 24 hr tablet Take 1 tablet by mouth. 12/01 Active scopolamine (Transderm-Scop) 1 MG/3DAYS patch [address] 1 patch on the skin. 2024 Active DULoxetine (Cymbalta) [address] capsuleIndications:Fib romyalgia Take 1 capsule by mouth daily. DO NOT CRUSH OR CHEW 90 capsule 1 2024 Active pilocarpine (Salagen) 5 MG tabletIndications:Sjog rickey syndrome with keratoconjunctivitis (CMS/HCC) TAKE 1 TABLET THREE TIMES A DAY 270 tablet 2 2024 Active meloxicam (Mobic) 15 MG tablet Take 1 tablet (15 mg) by mouth 1 (one) time each day. 07/09 Discontinued DULoxetine (Cymbalta) [address] capsuleIndications:Fib romyalgia Take 1 capsule (60 mg) by mouth daily. DO NOT CRUSH OR CHEW 90 capsule 1 07/09 Discontinued( Reorder) pilocarpine (Salagen) 5 MG tabletIndications:Sjog rickey syndrome with keratoconjunctivitis (CMS/HCC) TAKE 1 TABLET THREE TIMES A DAY 270 tablet 1 07/09 Discontinued( Reorder) pilocarpine (Salagen) 5 MG tabletIndications:Sjog rickey syndrome with keratoconjunctivitis (CMS/HCC) Take 1 tablet by mouth 3 times a day. 270 tablet 1 07/24 Discontinued Active Problems Problem Noted Date Diagnosed Date Trigger finger, left middle finger 06/22/2024 Encounters Date Type Department Care Team Description 07/23/2025 Refill [facility] Medicine Specialties [address], [address] [place] [phone] Nikolay Carson MD Sjogren syndrome with keratoconjunctivitis (CMS/HCC) 07/09/2025 11:10 AM EDT Office Visit [facility] Medicine Specialties [address], [address] [place] [address] Nikolay Carson MD Sjogren syndrome with keratoconjunctivitis (CMS/HCC) (Primary Dx); Other fatigue; Fibromyalgia; Positive LUCIO (antinuclear antibody); Sicca syndrome (CMS/HCC); Polyarthralgia; Rash and other nonspecific skin eruption; NSAID long-term use 07/09/2025 Travel from Last 3 Months Immunizations Immunization Administration Dates Next Due Influenza, high-dose, quadrivalent 08/25/2024,,08/21/2022 Influenza, injectable, MDCK, preservative free, quadrivalent 08/08/2020,08/18/2018 Influenza, injectable, quadr ivalent, preservative free 09/03/2021,08/29/2016 Pneumococcal 20-umu Conj Vaccine 12/07/2022 Pneumococcal, Unspecified 06/26/2015 Tdap 05/14/2024 Family History Medical History Relation Name Comments Diabetes Sister 1 Mony Day Javier Autoimmune disease Sister 2 Tammy Day Javier Relation Name Status Comments Sister 1 Mony Day Javier Sister 2 Tammy Day Javier Alive Social History Tobacco Use Types Packs/Day Years [...] Pulse 78 07/09/2025 11:15 AM EDT Temperature 36.6 C (97.9 F) 01/03/2025 12:39 PM EST Respiratory Rate 16 01/03/2025 12:39 PM EST Oxygen Saturation 99% 07/09/2025 11:15 AM EDT Inhaled Oxygen Concentration - - Weight 102 kg (225 lb 1.4 oz) 07/09/2025 11:15 A M EDT Height 157.5 cm (5' 2 ) 07/09/2025 11:15 AM EDT Body Mass Index 41.17 07/09/2025 11:15 AM EDT Plan of Treatment Upcoming Encounters Date Type Department Care Team (Late st Contact Info) Description 08/14/2025 12:40 PM EDT Consult [facility] [address], [address]rd [place] [phone] Glen Domínguez MD [address] [place] [address] 01/08/2026 11:10 AM EDT Office Visit [facility] [address], [address] [place] [address] Nikolay Carson MD [address] [place] [address] Health Maintenance Due Date Last [...] - Risk 60-74 years 1-dose series) 2016 [id number] Vaccine (4 - 2024- season) 2025 07/03/2021, 01/23/2021, 12/26/2020 [facility]-Influenza Vaccine (#1) 07/02/202508/25, 08/19/2023, 08/21/2022, Additional history exists [facility]-Depression Screening 01/03/2026 01/03/2025 [facility]-DTaP,Tdap,and Td Vaccines (2 - Td or Tdap) 05/14/2034 05/14/2024 [facility]-Pneumococcal Vaccine: 50+ Years Completed 12/07/2022, 06/26/2015 [facility]-Obesity Intervention Completed 025, 01/03/2025, 01/03/2025, Additional history exists HPV Vaccines Aged Out [...] patient's age to complete this topic [place] [address] Care Teams Quotation Checker Relationship Specialty Start Date End Date Simone To MD PCP - General Family Medicine 06/19/22
--- OUTSIDE RECORDS SUMMARY | 2025-07-27 11:09 | XMS_ITS | Encounter Summary ---
Author Organization [facility] Address [address] [id number] Care Team Providers Care Sale Professional Digital Marketing Name Role Phone Simone To MD Primary Care Provider +1- [phone] Reason for Visit * Reason Comments Med Refill Encounter Details Date Type Department Care Team (Late st Contact Info) Description 03/29/2023 Refill [facility] ENDOCRINOLOGY [address] [place] [address] Rossy Rome PA Class 3 [...] Care Team (Late st Contact Info) Description 01/11/2026 11:30 AM EDT Office Visit [facility] ENDOCRINOLOGY [address] [place] [address] Emiliano Austin MD [address] [place] [address] documented as of this encounter Visit Diagnoses Diagnosis Class 3 severe obesity due to excess calories with serious comorbidity and body mass index (BMI) of 45.0 to 49.9 in adult documented in this encounter Care Teams Sale Professional Digital Marketing Relationship Specialty Start Date End Date Simone To MD PCP - General Family Medicine 07/28/22 documented as of this encounter
--- OUTSIDE RECORDS SUMMARY | 2025-07-27 11:10 | XMS_ITS | Encounter Summary ---
Author Organization [facility] Address [address] [place] [address] Care Team Providers Care Pattern Repair Person Name Role Phone Simone To MD Primary Care Provider +1- [phone] Reason for Visit * Reason Comments Med Refill Encounter Details Date Type Department Care Team (Late st Contact Info) Description 07/23/2025 Refill [facility] ENDOCRINOLOGY [address] [place] [address] Emiliano Austin MD [address] [place], [place] [id number] Social History Tobacco Use Types Packs/Day Years [...] encounter Miscellaneous Notes * Telephone Encounter - Miesha Jackson MA - 07/24/2025 9:03 AM EDT Rx Refill Note Requested Prescriptions Pending Prescriptions Disp Refills promethazine (PHENERGAN) 25 MG tablet [Pharmacy Med Name: PROMETHAZINE HCL TABS 25MG] 15 tablet 1 Sig: TAKE ONE-HALF (1/2) TO ONE TABLET EVERY 8 HOURS NEEDED FOR NAUSEA Last office visit with prescribing clinician: 03/30/2025 Next office visit with prescribing clinician: 01/11/2026 Miesha Jackson MA 07/24/25, 09:03 EDT documented in this encounter Plan of Treatment Upcoming Encounters Date Type Department Care Team (Late st Contact Info) Description 01/11/2026 11:30 AM EDT Office Visit [facility] END[facility]CRINOLOGY [address] [facility] [address] [place] [address] Emiliano Austin MD [address] [place] [address] documented as of this encounter Visit Diagnoses Not on filedocumented in this encounter Care Teams Pattern Repair Person Relationship Specialty Start Date End Date Simone To MD PCP - General Family Medicine 07/28/22 documented as of this encounter
--- OUTSIDE RECORDS SUMMARY | 2025-07-27 11:10 | XMS_ITS | Encounter Summary ---
[facility] Organization [facility] Address [address] [place] [address] Care Team Providers Care Radio Frequency Engineer Name Role Phone Simone To MD Primary Care Provider +1- [phone] Reason for Visit * Reason Onset Date Comments Med Refill 05/07/2025 Encounter Details Date Type Department Care Team (Late st Contact Info) Description 05/07/2025 Refill [facility] ENDOCRINOLOGY [address] [place] [address] Emiliano Austin MD [address] [place] [address] Type 1 diabetes mellitus with hyperglycemia Social [...] Description 01/11/2026 11:30 AM EDT Office Visit [facility] ENDOCRINOLOGY [address] [place] [address] Emiliano Austin MD [address] [place] [address] documented as of this encounter Visit Diagnoses Diagnosis Type 1 diabetes mellitus with hyperglycemia documented in this encounter Care Teams Radio Frequency Engineer Relationship Specialty Start Date End Date Simone To MD PCP - General Family Medicine 07/28/22 documented as of this encounter
--- OUTSIDE RECORDS SUMMARY | 2025-07-27 11:10 | XMS_ITS | Encounter Summary ---
Author Organization [facility] Address [address] [place] [address] Care Team Providers Care Nurses Medical Assistants Phlebotomists Name Role Phone Simone To MD Primary Care Provider Genia vailable Reason for Visit * Reason Comments Med Refill Encounter Details Date Type Department Care Team (Late st Contact Info) Description 07/23/2025 Refill [facility] Medicine [facility] [address], [address] [place] [address] Nikolay Carson MD [address] [place] [address] Sjogren syndrome with keratoconjunctivitis (CMS/HCC) [...] as of this encounter Miscellaneous Notes * Progress Notes - Caroline Giang, PharmD - 07/24/2025 7:47 AM EDT 1 medication(s) has been approved per protocol. documented in this encounter Plan of Treatment Upcoming Encounters Date Type Department Care Team (Late st Contact Info) Description 08/14/2025 12:40 PM EDT Consult [facility] [address], [address] [place] [address] Glen Domínguez MD [address] [place] [address] 01/08/2026 11:10 AM EDT Office Visit [facility] Medicine Specialties [address], [address] [place] [address] Nikolay Carson MD [address] [facility] [address] [place] [address] documented as of this encounter Visit Diagnoses Diagnosis Sjogren syndrome with keratoconjunctivitis (CMS/HCC) documented in this encounter Additional Health Concerns Assessment Noted Time A fall risk assessment has been complete d for the patient 01/03/2025 12:43 PM EST A Body Mass Index follow-up plan has been documented for the patient 07/11/2025 3:04 PM EDT documented as of this encounter Care Teams Nurses Medical Assistants Phlebotomists Relationship Specialty Start Date End Date Simone To MD PCP - General Family Medicine 06/19/22 documented as of this encounter
--- OUTSIDE RECORDS SUMMARY | 2025-07-27 11:10 | XMS_ITS | Encounter Summary ---
Author Organization [facility] Address [address] [id number] Care Team Providers Care Windchill Administrator Name Role Phone Simone To MD Primary Care Provider +1- [phone] Encounter Details Date Type Department Care Team (Late st Contact Info) Description 03/31/2025 Results Follow-Up [facility] ENDOCRINOLOGY [address] [place] [address] Emiliano Austin MD [address] [place] [address] Social History Tobacco Use Types Packs/Day Years [...] Description 01/11/2026 11:30 AM EDT Office Visit [facility] ENDOCRINOLOGY [address] [place] [address] Emiliano Austin MD [address] [place] [address] documented as of this encounter Visit Diagnoses Not on filedocumented in this encounter Care Teams Windchill Administrator Relationship Specialty Start Date End Date Simone To MD PCP - General Family Medicine 07/28/22 documented as of this encounter
--- OUTSIDE RECORDS SUMMARY | 2025-07-27 11:10 | XMS_ITS | Encounter Summary ---
Demographics Address [address] [place] [address] Home Phone Mobile Phone Email Address Preferred Language en Marital Status Congregational Affiliation Unknown Race White Ethnic Group Not or Lati no Author Organization [facility] Address [address] [place] [address] Care Team Providers Care Marine Extension Agent Name Role Phone Simone To MD Primary Care Provider Genia vailable Encounter Details Date Type Department Care Team (Latest Contact Info) Description 07/09/2025 Travel Social History Tobacco Use Types Packs/Day Years [...] 08/14/2025 12:[address] [facility] Otolaryngology [address], [address] [place] [address] Glen Domínguez MD [address] [place] [address] 01/08/2026 11:10 AM EDT Office Visit [facility] [address], [address] [place] [address] Nikolay Carson MD [address] [place] [address] documented as of this encounter Visit Diagnoses Not on filedocumented in this encounter Additional Health Concerns Assessment Noted Time A fall risk assessment has been complete d for the patient 01/03/2025 12:43 PM EST A Body Mass Index follow-up plan has been documented for the patient 07/11/2025 3:04 PM EDT documented as of this encounter Care Teams Marine Extension Agent Relationship Specialty Start Date End Date Simone To MD PCP - General Family Medicine 06/19/22 documented as of this encounter
--- OUTSIDE RECORDS SUMMARY | 2025-07-27 11:10 | XMS_ITS | Encounter Summary ---
[facility] Organization [facility] Address [address] [place] [id number] Care Team Providers Care Risk Engineer Name Role Phone Simone To MD Primary Care Provider +1- [phone] Reason for Visit * Reason Onset Date Comments Med Refill 06/25/2025 Encounter Details Date Type Department Care Team (Late st Contact Info) Description 06/25/2025 Refill [facility] ENDOCRINOLOGY [address] [facility] [address] [place] [phone] Emiliano Austin MD [address] [facility] [address] [place] [address] Class 3 severe obesity due to excess calories with serious comorbidity and body mass index (BMI) of 40.0 to 44.9 in adult Social History Tobacco Use Types [...] encounter Miscellaneous Notes * Telephone Encounter - Tricia Finnegan) - 06/25/2025 8:42 AM EDT She request contour next test strips documented in this encounter Plan of Treatment Upcoming Encounters Date Type Department Care Team (Late st Contact Info) Description 01/11/2026 11:30 AM EDT Office Visit [facility] ENDOCRINOLOGY [address] [address] Emiliano Austin MD [address] [id number] documented as of this encounter Visit Diagnoses Diagnosis Class 3 severe obesity due to excess calories with serious comorbidity and body mass index (BMI) of 40.0 to 44.9 in adult documented in this encounter Care Teams Risk Engineer Relationship Specialty Start Date End Date Simone To MD PCP - General Family Medicine 07/28/22 documented as of this encounter
--- OUTSIDE RECORDS SUMMARY | 2025-07-27 11:10 | XMS_ITS | Encounter Summary ---
[facility] Address [address] [place] [address] Care Team Providers Care Egg Grader Name Role Phone Simone To MD Primary Care Provider +1- [phone] Encounter Details Date Type Department Care Team (Late st Contact Info) Description 06/04/[address] [facility] ENDOCRINOLOGY [address] [place] [address] Emiliano Austin MD [address] [place], [place] [id number] Type 1 diabetes mellitus with hyperglycemia Social [...] Description 01/11/2026 11:30 AM EDT Office Visit [facility] ENDOCRINOLOGY [address] [address] Emiliano Austin MD [address] [place] [address] documented as of this encounter Visit Diagnoses Diagnosis Type 1 diabetes mellitus with hyperglycemia documented in this encounter Care Teams Egg Grader Relationship Specialty Start Date End Date Simone To MD PCP - General Family Medicine 07/28/22 documented as of this encounter
--- OUTSIDE RECORDS SUMMARY | 2025-07-27 11:10 | XMS_ITS | Data Portability ---
Author Organization [facility] Address [address] [place] [address] Care Team Providers Care Chief Information Officer Name Role Phone NICKY CISSE Primary Care [...] audio gram No observ ation record ed. [email or web address] Not Available 2024 14:52:07 Result Notes None recorded. Problems Name Problem SNOMED Code Status Onset Date Resolution Date Notes Provider Name and Address Organization Details Recorded Time Sensorineural hearing loss 28294931 Active 2024 MIGUEL VELAZQUEZ, AUD [address] [facility], [place], [address] , [facility] 14:50:25 Problem Notes None recorded. Medical Equipment [...] Diagnosis SNOMED-CT Code Diagnosis ICD10 Code Diagnosis IMO Codes Diagnosis Note [id number] CARLIE JARRETT [facility] [place] [id number] 07/22/2022 10:29:51 07/22/2022 10:38:06 Sensorineural hearing loss 22116531 H90.3 [id number] CARLIE JARRETT [facility] [place] [id number] 03/07/2025 14:36:23 03/07/2025 14:52:15 Sensorineural hearing loss 90132828 H90.3 [id number] CARLIE JARRETT [facility] [place] [id number] 04/04/2025 13:07:48 04/04/2025 13:16:19 Sensorineural hearing loss 79646104 H90.3 Health Concerns Section Related Observation LastModified by Organization Detai ls LastModified Time None Recorded Concern Status LastModified by Organization Details LastModified Time None Recorded Advance Directives Directive None Recorded Payers Insurance Date Sequence Insurance Name Policy Number Policy Mcclellan Covered Member ID Mcclellan Member ID Guarantor Name 07/21/2019 1 [facility] [id number] Angel Monteiro [id number] 16 Lena Monteiro 04/01/2025 1 [facility] [id number] Angel Monteiro [id number] Lena Monteiro Notes Date Note Type Note Provider Name and Address Organization Details Recorded Time 07/22/2022 text/html DizzinessReporte d by Patient Hearing Loss - AdultReported by PatientROS as noted in the HPI Ms. Monteiro was seen today for a hearing aid service. CARLIE JARRETT [address] , [place], [address], [facility] 07/22/2022 10:37:58 03/07/2025 text/html Ms. Monteiro was seen today for an audiologic evaluation due to [...] aids arrive. MIGUEL VELAZQUEZ, CARLIE [address] , [place], [address], [facility] 03/07/2025 14:52:10 04/04/2025 text/html Ms. Monteiro was seen today for a hearing aid fitting. CARLIE JARRETT [address] , [place], [address], [facility] 04/04/2025 13:18:57 OBGyn Episode No OBEpisode recorded.
--- OUTSIDE RECORDS SUMMARY | 2025-07-27 11:10 | XMS_ITS | Encounter Summary ---
[facility] Address [address] [place] [address] Care Team Providers Care Rivet Sorter Name Role Phone Simone To MD Primary Care Provider +1- [phone] Encounter Details Date Type Department Care Team (Late st Contact Info) Description 06/29/[address] [facility] ENDOCR[facility]OLOG[facility] [address] [place] [id number] Emiliano Austin MD [address] [place], [place] [id number] Social History Tobacco Use Types Packs/Day Years [...] Telephone Encounter - Karol Bell MA - 06/29/2025 2:36 PM EDT Last office visit with prescribing clinician: 03/30/2025 Next office visit with prescribing clinician: 08/31/2025 { * Telephone Encounter - Renny Castro PCT - 06/29/2025 2:24 PM EDT [facility] CALLED STATING CONTOUR NEXT TEST STRIPS ARE NOT COVERED. THEY STATED FREESTYLE TEST STRIPS AND ONE TOUCH VERIO ARE COVERED. I ASSUME PT WILL NEED A TEST KIT, STRIPS, AND LANCETS SENT IN TO [facility]. documented in this encounter Plan of Treatment Upcoming Encounters Date Type Department Care Team (Late st Contact Info) Description 01/11/2026 11:30 AM EDT Office Visit [facility] [address] [employer] [address] [place] [phone] Emiliano Austin MD [address] [place] [id number] documented as of this encounter Visit Diagnoses Not on filedocumented in this encounter Care Teams Rivet Sorter Relationship Specialty Start Date End Date Simone To MD PCP - General Family Medicine 07/28/22 documented as of this encounter
--- OUTSIDE RECORDS SUMMARY | 2025-07-27 11:10 | XMS_ITS | Clinical Summary ---
Author Organization [facility] Address [address] [place] [address] Care Team Providers Care Modular Set Crew Member Name Role Phone Simone To MD Primary Care Provider [phone]- [phone] Allergies Active Allergy Reactions Criticality Noted Date Comments Lisinopril Cough Low 04/26/2023 Medications aspirin 81 MG tablet Take by mouth. 015 Active glucose blood test stripIndications: Type 2 diabetes mellitus without complication, unspecified buttermaker helper insulin use status OneTouch Ultra Blue In Vitro Strip; Patient Sig: OneTouch Ultra Blue In Vitro Strip TEST 5 TIMES DAILY; 5; 3; -May-2015; Active 500 each 3 016 Active furosemide (LASIX) 40 MG tablet TAKE ONE TABLET BY MOUTH ONCE DAILY 30 tablet 017 Active esomeprazole (nexIUM) 40 MG capsuleIndication s:Gastroesophagea l reflux disease, esophagitis presence not specified Take 1 capsule by mouth Every Morning Before Breakfast. 90 capsule 3 017 Active fexofenadine (BRIE) 180 MG tablet Take 1 tablet by mouth Daily for 90 days. 30 tablet 3 020 Active Insulin Infusion Pump (T:slim X2 Ins Pump/Control-IQ) device Basal 12a 0.9, 4a 0.95, 7:30a 1.1, 5p 1.1, 8:30p 1.0; carb ratio 1:10, correction 40, target 100, AIT 5h; changes inf. sets q3 days Active montelukast (SINGULAIR) 10 MG tablet Take 1 tablet by mouth Daily. 90 tablet 3 021 Active Premarin 0.625 MG/GM vaginal cream Insert 2 g into the vagina. 022 Active ALPRAZolam (XANAX) 0.25 MG tablet Take 1 tablet by mouth At Night As Needed. 023 Active DULoxetine (CYMBALTA) 60 MG capsule Take 1 capsule by mouth Daily. Active Airsupra 90-80 MCG/ACT aerosol Inhale 90 mL/mL Daily. Active HYDROcodone-aceta minophen (NORCO) 5-325 MG per tablet Take 1 tablet by mouth Every 6 (Six) Hours As Needed for Mild Pain. Active meloxicam (MOBIC) 15 MG tablet Take 1 tablet by mouth Daily. Active ondansetron ODT (ZOFRAN-ODT) [address] 1 tablet on the tongue Every 8 (Eight) Hours As Needed for Nausea. Active albuterol sulfate HFA 108 (90 Base) MCG/ACT inhalerIndication s:Simple chronic bronchitis USE 2 INHALATIONS EVERY 4 HOURS NEEDED FOR WHEEZING 54 g 3 Active Tirzepatide-Weigh t Management (Zepbound) 15 MG/0.5ML solution auto-injectorIndi cations:Class 3 severe obesity due to excess calories with serious comorbidity and body mass index (BMI) of 40.0 to 44.9 in adult Inject 0.5 mL under the skin into the appropriate area as directed 1 (One) Time Per Week. 6 mL 2 Active HumaLOG 100 UNIT/ML injectionIndicati ons:Type 1 diabetes mellitus with hyperglycemia Using an insulin pump as directed with maximum daily dose of 60 units 60 mL 3 Active atorvastatin (LIPITOR) 40 MG tabletIndications :Hypercholesterol emia Take 1 tablet by mouth Daily. 90 tablet 3 Active Continuous Glucose Sensor (Dexcom G7 Sensor) miscIndications:T ype 1 diabetes mellitus with hyperglycemia Use 1 each Every 10 (Ten) Days. 9 each 4 025 Active Glucagon (Gvoke HypoPen 1-Pack) 1 MG/0.2ML solution auto-injectorIndi cations:Type 1 diabetes mellitus with hyperglycemia Inject 1 mg under the skin into the appropriate area as directed As Needed (no). 0.2 mL 3 025 Active insulin glargine (LANTUS, SEMGLEE) 100 UNIT/ML injectionIndicati ons:Type 1 diabetes mellitus with hyperglycemia Inject 18 Units under the skin into the appropriate area as directed Every Night. 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 90 tablet 1 025 2025 Active glucose blood test strip Contour next test strips check 3 times a day dx e10.65 300 strip 3 025 Active Blood Glucose Monitoring Suppl device Use as directed three times daily dx e10.65 ok to change to ins formulary 1 each 025 Active glucose blood test strip Use as directed three times daily dx e10.65 ok to change to ins formulary 300 strip 1 025 Active Lancets misc Use as directed three times daily dx e10.65 ok to change to ins formulary 300 each 1 025 Active Scopolamine 1 MG/3DAYS patchIndications: Class 3 severe obesity due to excess calories with serious comorbidity and body mass index (BMI) of 40.[address] 1 patch on the skin as directed by provider Every 3 (Three) Days. 4 each 025 Active promethazine (PHENERGAN) 25 MG tablet TAKE ONE-HALF (11/02) TO ONE TABLET EVERY 8 HOURS NEEDED FOR NAUSEA 15 tablet 1 025 Active promethazine (PHENERGAN) 25 MG tablet TAKE ONE-HALF (11/02) TO ONE TABLET EVERY 8 HOURS NEEDED FOR NAUSEA 15 tablet 025 2024 Discontinued Scopolamine 1 MG/3DAYS patchIndications: Class 3 severe obesity due to excess calories with serious comorbidity and body mass index (BMI) of 40.[address] 1 patch on the skin as directed by provider Every 3 (Three) Days. 4 each 025 2024 Discontinued(R ev) Active Problems Problem Noted Date Diagnosed Date [...] Date Type Department Care Team Description 07/23/2025 [facility] ENDOCRINOLOGY [address] [place] [address] Emiliano Austin MD 06/29/2025 Telephone [facility] ENDOCR[facility]OLOG[facility] [address] [place] [address] Emiliano Austin MD 06/25/2025 [facility] ENDOCRINOLOGY [address] [place] [address] Emiliano Austin MD Class 3 severe obesity due to excess calories with serious comorbidity and body mass index (BMI) of 40.0 to 44.9 in adult 06/04/2025 [facility] ENDOCRINOLOGY [address] [place] [address] Emiliano Austin MD Type 1 diabetes mellitus with hyperglycemia 05/15/2025 Prior Authorization [facility] END[facility]CR[facility] [address] [facility] [address] [place] [address] Emiliano Austin MD Zepbound Approval 05/07/2025 Refill [facility] ENDOCRIN[facility]Y [address] [facility] [address] [place] [address] Emiliano Austin MD Type 1 diabetes mellitus with hyperglycemia from Last 3 Months Immunizations Immunization Administration [...] Father Lung cancer Father Diabetes Mother Katia Pham Hypertension Mother Katia Pham Stroke Mother Katia Pham Cancer Sister 1 Mony Javier Breast cancer Diabetes Sister 1 Mony Javier Diabetes type I Sister 1 Mony Javier Hyperparathyroidism Sister 1 Mony Javier Thyroid disease Sister 1 Mony Javier Thyroid disease Sister 2 Izzy Arboleda Relation Name Status Comments Father Mother Katia Pham Sister 1 Mony Javier Sister 2 Izzy [...] Description 01/11/2026 11:30 AM EDT Office Visit [facility] END[facility]CR[facility] [address] [place] [address] Emiliano Austin MD [address] [place] [address] Health Maintenance Due Date Last Done Comments DXA SCAN 1956 MAMMOGRAM 1996 COLOGUARD 2001 COLON CANCER SCREENING 5 YEA R SIGMOIDOSCOPY 2001 COLONOSCOPY 2001 COL[address] CANCER SCREENING 2001 CT COLONOGRAPHY 2001 FECAL OCCULT BLOOD TEST 2001 FIT Testing (1 year) 2001 ZOSTER VACCINE (1 of 2) 2006 ANNUAL PHYSICAL 02/25/2016 HEPATITIS C SCREENING 02/25/2016 NETWORK ENGINEERING ADVISOR PLAN OF CARE 11/17/2016 INFLUENZA VACCINE 06/01/2025 08/25/2024, , 08/21/2022, Additional history exists DIABETIC EYE EXAM 06/07/2025 06/07/2024 (Pietro reyes-Reported (Performed Externally)), 01/26/2023, 08/05/2021, Additional history exists COVID-19 Vaccine (2024-2 6 season) 2025 07/03/2021, 01/23/2021, 12/26/2020 HEMOGLOBIN A1C 09/30/2025 03/30/2025, 09/01, 06/08/2024, Additional [...] PANEL Routine 03/30/2025 11:54 AM EDT Hypercholesterolemia POCT GLYCOSYLATED HEMOGLOBIN (HGB A1C) Routine 03/30/2025 11:42 AM EDT Type 1 diabetes mellitus with hyperglycemia MICROALBUMIN / CREATININE URINE RATIO Routine 07/30/2023 10:07 AM EDT Type 1 diabetes mellitus with hyperglycemia SCANNED - EYE EXAM 01/26/2023 from Last 3 Months or Most Recently Relevant to Health Maintenance Results * (ABNORMAL) Lipid Panel (03/30/2025 11:54 AM EDT) Total Cholesterol 196 0 - 200 mg/dL 03/30/2025 11:35 PM EDT [facility] Triglycerides 38 0 - 150 mg/dL 03/30/2025 11:35 PM EDT [facility] HDL Cholesterol 131(H) 40 - 60 mg/dL 03/30/2025 11:35 PM EDT [facility] LDL Cholesterol 57 0 - 100 mg/dL 03/30/2025 11:35 PM EDT [facility] VLDL Cholesterol 8 5 - 40 mg/dL 03/30/2025 11:35 PM EDT [facility] LDL/HDL Ratio 0.44 03/30/2025 11:35 PM EDT [facility] Blood Structure of left upper limb / Unknown Venipuncture / Unknown 03/30/2025 11:54 AM EDT 03/30/2025 11:54 AM EDT Narrative [facility] - 03/30/2025 11:35 PM EDT Cholesterol [...] Austin MD LAB BLOOD ORDERABLES Final Result [facility]
[address] [place] [address], * POC Glycosylated Hemoglobin (Hb A1C) (03/30/2025 11:42 AM EDT) Hemoglobin A1C 5.5 4.5 - 5.7 % [facility] Lot Number [id number] [facility] Expiration Date 12/27/2026 [facility] Blood 03/30/2025 11:4 2 AM EDT Emiliano Austin MD POINT OF CARE TEST ORDERABL ES Final Result [facility]
[address] [place] [address], * Microalbumin / Creatinine Urine Ratio - Urine, Clean Catch (07/30/2023 10:07 AM EDT) Microalbumin/C reatinine Ratio 11.7 mg/g 07/30/2023 7:27 PM EDT [facility] Creatinine, Urine 162.6 mg/dL 07/30/2023 7:27 PM EDT [facility] Microalbumin, Urine 1.9 mg/dL 07/30/2023 7:27 PM EDT [facility] Urine Urine specimen obtained by clean catch procedure / Unknown Collection / Unknown 07/30/2023 10:07 AM EDT 07/30/2023 10:08 AM EDT Emiliano Austin MD URINE ORDERABLES Final Resu lt [facility]
[address] [place] [address], * SCANNED - EYE EXAM (01/26/2023) Anatomical Region Laterality Modality Other Itzel Hodges MD CHART REVIEW TABS Kori l Result from Last 3 Months or Most Recently Relevant to Health Maintenance Insurance PPO Care Teams Modular Set Crew Member Relationship Specialty Start Date End Date Simone To MD PCP - General Family Medicine 07/28/22
--- NOTE | 2025-07-27 11:13 | XR_ITS ---
FINAL REPORT CLINICAL HISTORY: right SI pain FINDINGS: AP and lateral views of the lumbar spine were obtained. There is no prior exam for comparison. There is grade 1 anterior spondylolisthesis of L4 on L5. Alignment is otherwise normal. The vertebral body heights are preserved. Mild multilevel degenerative disc disease is most pronounced at L4-5. There is no acute paraspinal abnormality. IMPRESSION: Degenerative/chronic changes without acute osseous abnormality of the lumbar spine. Reviewed, Interpreted and Dictated by Loren Morejon MD Transcribed by Linda Zavala Authenticated and [facility]
== END 2025-07-27 23:59 | disposition home or self-care (01) ==
LOC: RAD 11:07
PROVIDERS: PCP Family Medicine; Visit Provider Family Medicine
DX: M47.816 Spondylosis without myelopathy or radiculopathy, lumbar region (principal); M53.3 Sacrococcygeal disorders, not elsewhere classified
CPT/HCPCS: 72100

== ENCOUNTER 2025-08-14 09:45 | Day surgery (SDC) | payer BC, SELFPAY ==
[2025-08-14 09:51] VITALS: BP 132/72; PULSE 53; RESP 16; O2SAT 98; BMI 39.3
[2025-08-14 10:04] VITALS: BP 147/73; PULSE 79; RESP 18; O2SAT 98
[2025-08-14] MEDS: LIDOCAINE 1% 5ML PF VIAL 5 ML (10:04)
--- NOTE | 2025-08-14 10:05 | EXP.PAIN.PRO ---
Procedure Date: 08/14/25 Time: 10:00 Anesthesiologist:: Rock Parks CRNA Complications:: None Pre-procedure Diagnosis:: Degenerative disc cervical spine multilevels. Cervical radiculopathy. Cervical spondylosis. Multilevel cervical facet arthropathy. Posterior cervical neck pain. Post-procedure Diagnosis:: Same. Indications for Procedure:: Patient is a pleasant 69-year-old female comes our clinic today for bilateral cervical facet blocks/branch blocks C4-5, C5-6 level. Patient describes posterior cervical neck pain is constant, dull, aching. She reports bilateral shoulder pain at times. She rates her pain 7/10. She reports difficulty with cervical flexion, extension, left and right rotation. Procedure Details:: Informed consent was obtained and the risk and benefits of the procedure was explained to the patient. Patient was taken to the procedure room where noninvasive monitors were placed, including noninvasive blood pressure cuff as well as pulse oximeter. The area over the posterior cervical spine was cleansed using chlorhexidine as a cleansing solution. I anesthetized the skin and subcutaneous tissues with 1% Lidocaine. I placed 25 -gauge spinal needles into the facet joint/ medial branches of C4-5, C5-6 bilaterally. Needle placement was confirmed with fluoroscopy. After confirmation of needle placement, each site was injected with 1 mL of 1% lidocaine and 0.25 % Marcaine and 5 mg of dexamethasone. A total of 10 mg of dexamethasone was used for bilateral medial branch blocks of C5-6, C6-7 bilaterally. Patient tolerated the procedure without difficulty. There were no complications. Patient was discharged without incident. Plan and Disposition:: Patient was discharged without incident.
[2025-08-14 10:06] VITALS: BP 147/73; PULSE 79; RESP 18; O2SAT 98
[2025-08-14] MEDS: IOPAMIDOL-200 (41%);10ML VIAL 2 ML IV (10:09)
[2025-08-14 10:13] VITALS: BP 142/77; PULSE 78; RESP 16; O2SAT 100
== END 2025-08-14 10:13 | disposition home or self-care (01) ==
PROVIDERS: PCP Family Medicine; Visit Provider Nurse Anesthetist, Certified Registered
DX: M50.121 Cervical disc disorder at C4-C5 level with radiculopathy (principal); M50.122 Cervical disc disorder at C5-C6 level with radiculopathy; M50.123 Cervical disc disorder at C6-C7 level with radiculopathy; M47.22 Other spondylosis with radiculopathy, cervical region; I11.0 Hypertensive heart disease with heart failure; I50.9 Heart failure, unspecified; K21.9 Gastro-esophageal reflux disease without esophagitis; M35.00 Sjogren syndrome, unspecified; E03.9 Hypothyroidism, unspecified; Z88.8 Allergy status to other drugs, medicaments and biological substances; Z96.41 Presence of insulin pump (external) (internal); Z79.1 Long term (current) use of non-steroidal anti-inflammatories (NSAID); Z79.890 Hormone replacement therapy; Z79.891 Long term (current) use of opiate analgesic; Z79.899 Other long term (current) drug therapy
CPT/HCPCS: 64490; 64491; 64492; J2003; Q9966

== ENCOUNTER 2025-08-15 10:49 | Outpatient (RCR) | payer BC, SELFPAY ==
--- NOTE | 2025-08-15 11:42 | HMH.PTOPEV ---
PT Evaluation Rehab PT Outpatient Evaluation Start: 08/15/25 10:56 Freq: Status: Active Protocol: Document 08/15/25 10:56 VERONICA (Rec: 08/15/25 11:41 VERONICA [id number]) E-signed By Karine Jackson, PT Outpatient Therapy Subjective History Subjective History Pt is a 69 y/o female referred to PT for low back pain. Pt reports onset of low back pain sometime in July. Pt states she did fall in the later part of summer landing on her tailbone resulting in a bruise. Pt had a lumbar spine radiograph performed on 07/27/25 with findings of There is grade 1 anterior spondylolisthesis of L4 on L5. Alignment is otherwise normal. The vertebral body heights are preserved. Mild multilevel degenerative disc disease is most pronounced at L4-5. There is no acute paraspinal abnormality. Pt reports current symptoms of right sided low back pain aggravated by prolonged sitting, rolling and performing transfers such as supine to sit and sit to stand. Pt denies more distal LE symptoms, b/ b dysfunction or numbness/tingling. Medical History: Type I Diabetes, Sleep apnea, Hypothyroid, GERD (gastroesophageal reflux disease), Fibromyalgia, Obstructive lung disease, Sjogren syndrome with keratoconjunctivitis, Hypertension, New diagnosis of No cancer in past 12 months? Chief Complaint Pain Symptom Type Ache,Dull Symptoms Relieved By Rest/Positioning,Heat Symptom Description Constant but Variable Level of pain today 3 (0-10) Pain scale - at its 2 best (0-10) Pain scale - at its 7 worst (0-10) Lumbopelvic Eval Assistive device Assistive Devices None / NA Gait Observation General Gait Pattern Wide Based Gait Observation Palapation tenderness bilateral paraspinal Yes: R lumbar PS mm tenderness buttock tenderness Yes: R glute med/min, prifiromis mm Lumbar/Sacral Tenderness Palpation Findings Lumbar/Sacral 2/4 TTP of R lateral border of the sacrum Palpation Overall Comment Range of Motion Lumbar Spine Active 80 Flexion Range of Motion (degrees) Lumbar Spine Active 10 Extension Range of Motion (degrees) Left Lumbar Spine 10 Lateral Flexion Active Range of Motion (degrees) Right Lumbar Spine 10 Lateral Flexion Active Range of Motion (degrees) Manual Muscle Test Right Knee Extension 4+ Good+ Strength Grade Knee Flexion 4+ Good+ Strength Grade Hip Flexion Strength 4 Good Grade Hip Abduction 4 Good Strength Grade Hip Adduction 4 Good Strength Grade Hip Extension 4- Good- Strength Grade Ankle Dorsiflexion 5 Normal Strength Grade Altered Sensation Bilateral Comment equal and intact to light touch sensation bilaterally Special Tests Hip Remigio (LAURA) Negative Left,Positive Right Test Sciatic Nerve Negative Left,Negative Right Tension Test Unilateral Straight Negative Left,Positive Right Leg Raise (Lasegue) Test Sacroiliac Joint Negative Left,Positive Right Compression Test Sacroiliac Joint Negative Left,Negative Right Distraction Test Oswestry Index Section 1 Pain Intensity The pain is moderate and does not vary much Section 2 Personal Care ( my way of washing or dressing even though it causes Washing,Dresing) some pain Section 3 Lifting lifting heavy weights off the floor, but I can manage if they are Section 4 Walking I cannot walk more than one mile wihtout increasing pain Section 5 Sitting Pain prevents me from sitting for more than 1/2 hour Section 6 Standing I cannot stand more than 1 hour without increasing pain Section 7 Sleeping Because of my pain, my normal night's sleep is less than 6 hours sleep Section 8 Social Life My social life is normal but increases the degree of pain Section 9 Traveling I get extra pain while traveling, but it does not compel me to seek al Section 10 Changing Degreee of My pain is neither getting better or worse Pain Score and Risk Level Oswestry Score 22 Oswestry Risk Level Moderate Disability Outpatient Therapy Assessment Impairments Problems/ Palpation Tenderness,Impaired Range of Motion,Impaired Impairmments Strength,Impaired Transfers,Impaired Household Care, Subjective C/O Pain,Impaired Self Care/Self Management Prognosis Rehab Potential Good Clinical Impression Consistent with Yes Diagnosis Additional details: Provided written/illustrated HEP instructions to pt this date PT Patient Goals PT Patient Goals PT Short Term 3 weeks: Patient Goals 1. Verbalize compliance with HEP to assist with progress. 2. Improve pain at worst to 5/10 on VAS to improve overall QOL/function. 3. Improve R hip extension MMT to 4-/5 grossly to assist with function. PT Call Center Associate Patient 6 weeks: Goals 1. Perform bed mobility without pain to assist with transfers. 2. Perform sit to stand without pain to assist with transfers. 3. Improve KIP score to 17 or less to improve overall QOL/function. 4. Improve R hip MMT to 4-4+/5 grossly to assist with function. 5. Improve pain at worst to 3/10 on VAS to improve overall QOL/function. Outpatient Therapy Plan of Care Treatment Plan May Include Therapeutic Exercise Yes Including Home Exercise Program Manual Therapy Yes Techniques Neuromuscular Re- Yes education Therapeutic Yes Activities to Return to Previous Functional/Work Level ADL/Self Care Yes Education Mechanical Traction Yes Dry Needling Yes Thermal Modalities Yes Electrical Yes Stimulation Ultrasound/ Yes Phonophoresis Iontophoresis Yes Group Therapy for Yes Medicare Eval/Re-Eval Yes Frequency Times per week 2 Duration Number of Weeks 4-6 Addendums This patient is a No candidate for social or vocational rehab ? Patient/Guardian Yes verbally acknowledges understanding of treatment program and consents to further treatment? Patient/Guardian Yes verbally acknowledges understanding of diagnosis, prognosis and goals for treatment? Eval Complexity PT Charges 74730 - Moderate Complexity Shoulder/Elbow Eval Shoulder Objective Measurements Elbow Objective Measurements PHYSICIAN CERTIFICATION: I certify the specified therapy services for Lena Monteiro are required, authorized, and reviewed every 30 days.
== END 2025-08-15 23:59 | disposition home or self-care (01) ==
LOC: PT 10:49
PROVIDERS: Visit Provider Family Medicine
DX: M54.50 Low back pain, unspecified (principal)
CPT/HCPCS: 97162

== ENCOUNTER 2025-09-14 08:16 | Day surgery (SDC) | payer BC, SELFPAY ==
[2025-09-14 08:36] VITALS: BP 136/79; PULSE 79; RESP 18; O2SAT 100; BMI 39.3
[2025-09-14] MEDS: BUPIVACAINE 0.25% 10ML INJ 25 MG IJ (08:55)
[2025-09-14] MEDS: LIDOCAINE 1% 5ML PF VIAL 10 ML (08:55)
[2025-09-14 08:56] VITALS: BP 136/79; PULSE 79; RESP 18; O2SAT 100
[2025-09-14 08:58] VITALS: BP 136/79; PULSE 79; RESP 18; O2SAT 100
[2025-09-14] MEDS: IOPAMIDOL-200 (41%);10ML VIAL 10 ML IV (09:03)
[2025-09-14 09:09] VITALS: BP 154/81; PULSE 78; RESP 16; O2SAT 99
--- NOTE | 2025-09-14 10:20 | EXP.HP ---
History of Present Illness *Admission Date: 09/14/25 *Reason for visit:: Cervical medial branch block bilateral C4-C5 and C5-C6 *History of present illness: This patient is a pleasant 69-year-old white female who we are treating for neck pain with cervical spondylosis. She presents for bilateral cervical medial branch block C4-C5 and C5-6 today. This is diagnostic block #2. [facility] Disclaimer: The information contained in this section may have been updated after the patient was seen, as this information can be updated by other users. Medical History Low back pain Hypothyroid GERD (gastroesophageal reflux disease) Fibromyalgia Obstructive lung disease Sjogren syndrome with keratoconjunctivitis Hypertension CHF (congestive heart failure) Surgical History Hx of cataract surgery S/P trigger finger release History of hysterectomy History of H/O tubal ligation Family History Sister Diabetes Father Cancer Mother Diabetes Stroke Son Thyroid disorder Social History Smoking Status: Never smoker alcohol intake: current alcohol intake frequency: holidays/special occasions only substance use type: denies use current occupational status: retired Travel in the last 8 weeks?: [place] household members: spouse housing: house Other Medical History Have you received the Flu Vaccine for this season: No Have you received the Pneumonia Vaccine: No Meds Home Medications and Allergies Home Medications ?Medication ?Instructions ?Recorded ?Confirmed ?Type albuterol sulfate 90 mcg/actuation 2 puff inhalation Q4-6H soa 10/26/21 09/14/25 History aerosol inhaler aspirin 81 mg capsule 81 mg PO DAILY 06/08/22 09/14/25 History calcium carbonate (Calcium 600) 600 mg PO DAILY 06/08/22 09/14/25 History infusion set for insulin pump 06/08/22 09/14/25 History levothyroxine 50 mcg tablet 50 mcg PO ONCE thyroid 06/08/22 09/14/25 History (Synthroid) albuterol sulfate 2.5 mg/3 mL 2.5 mg (3 mL) inhalation Q6H #90 mL 09/28/22 09/14/25 Rx (0.083 %) solution for nebulization blood-glucose sensor (Dexcom G6 #1 ea 10/19/22 09/14/25 History Sensor device) blood-glucose transmitter (Dexcom #1 ea 10/19/22 09/14/25 History G6 Transmitter device) insulin glargine 100 unit/mL 10 unit SQ HS PRN . 10/19/22 09/14/25 History subcutaneous solution (Lantus U-100 Insulin) fexofenadine 180 mg tablet 180 mg PO DAILY allergies 02/23/23 09/14/25 History glucagon 1 mg/0.2 mL subcutaneous 1 mg SQ ONCE PRN hypoglycemia 04/26/23 09/14/25 History auto-injector (Gvoke HypoPen 1-Pack) atorvastatin 40 mg tablet See Rx Instructions .Route 06/08/23 09/14/25 Rx .COMPLEX #90 tabs conjugated estrogens 0.625 mg/gram 0.625 mg vaginal DAILY 90 days #90 07/23/23 09/14/25 Rx vaginal cream (Premarin) grams duloxetine 60 mg capsule,delayed 60 mg PO . 03/29/24 09/14/25 History release pilocarpine HCl 5 mg tablet 5 mg PO DAILY 03/29/24 09/14/25 History tirzepatide (weight loss) 15 15 mg SQ WEEKLY 03/29/24 09/14/25 History mg/0.5 mL subcutaneous pen injector (Zepbound) esomeprazole magnesium 40 mg See Rx Instructions .Route 10/02/24 09/14/25 Rx capsule,delayed release .COMPLEX #180 caps furosemide 40 mg tablet See Rx Instructions .Route 10/02/24 09/14/25 Rx .COMPLEX #90 tabs albuterol 90 mcg-budesonide 80 See Rx Instructions .Route 12/13/24 09/14/25 Rx mcg/actuation HFA aerosol inhaler .COMPLEX #32.1 grams (Airsupra) hydrocodone 5 mg-acetaminophen 325 1 tab PO Q6H PRN pain #30 tabs 12/25/24 09/14/25 Rx mg tablet meloxicam 15 mg tablet 15 mg PO DAILY #30 tabs 12/25/24 09/14/25 Rx montelukast 10 mg tablet See Rx Instructions .Route 01/22/25 09/14/25 Rx .COMPLEX #90 tabs nitrofurantoin See Rx Instructions .Route 01/22/25 09/14/25 Rx monohydrate/macrocrystals 100 mg .COMPLEX #90 caps capsule ondansetron 4 mg disintegrating 4 mg PO BID PRN nausea and 03/22/25 09/14/25 Rx tablet vomiting #20 tabs terbinafine HCl 250 mg tablet 250 mg PO DAILY #90 tabs 04/04/25 09/14/25 Rx alprazolam 0.25 mg tablet (Xanax) 0.25 - 0.75 mg (1 - 3 x 0.25 mg) 06/22/25 09/14/25 Rx PO Q8H PRN anxiety #60 tabs metformin 500 mg tablet,extended 500 mg PO . 07/26/25 09/14/25 History release 24 hr promethazine 25 mg tablet 25 mg PO . PRN . 07/26/25 09/14/25 History scopolamine base 1 mg over 3 days 1 patch topical . PRN . 07/26/25 09/14/25 History transdermal patch tretinoin 0.1 % topical cream 0.1 applic topical . 07/26/25 09/14/25 History New Prescriptions to Start Prescriptions: Allergies Allergy/AdvReac Type Severity Reaction Status Date / Time lisinopril AdvReac Cough Verified 09/14/25 08:37 Exam Data for Last 24 hours Vital signs and Labs for Last 24 Hours: Pulse Resp BP Pulse Ox O2 Del Method 78 16 154/81 H 99 Room Air 09/14/25 09:09 09/14/25 09:09 09/14/25 09:09 09/14/25 09:09 09/14/25 09:09 I & O for Last 24 hours: Intake & Output 09/11/25 09/12/25 09/13/25 09/14/25 11:59 11:59 11:59 11:59 Weight 215 lb *Routine HEENT Exam Head: Present normocephalic Eye: Present normal accommodation ENT: Present mucous membranes moist *Routine Respiratory Exam Respiratory: Present CTA bilaterally *Routine Cardiovascular Exam Cardiovascular: Present RRR, Normal S1 and Normal S2 *Routine Abdominal Exam Abdominal: Present soft *Routine Rectal Exam Rectal:: deferred *Routine Genitalia Exam Genitalia:: deferred Assessment and Plan *Assessment and plan (1) Facet arthropathy, cervical: Status: Acute Category: Medical Code(s): M47.812 - Spondylosis without myelopathy or radiculopathy, cervical region (2) Degenerative disc disease, cervical: Status: Acute Category: Medical Code(s): M50.30 - Other cervical disc degeneration, unspecified cervical region Plan Diagnostic block #2 bilateral cervical medial branch block C4-C5 and C5-6
--- NOTE | 2025-09-14 10:25 | EXP.PAIN.PRO ---
Procedure Date: 09/14/25 Time: 10:25 Anesthesiologist:: Kadeem Arellano MD Complications:: None Pre-procedure Diagnosis:: Degenerative disease of cervical spine with cervical spondylosis and cervical facet arthropathy Post-procedure Diagnosis:: Same Indications for Procedure:: The patient is a pleasant 69-year-old white female who we are treating for cervical spondylosis and cervical facet arthropathy. She did well with diagnostic block 1. She presents for diagnostic block #2 bilateral cervical medial branch blocks C4-C5 C5-C6. This will be done with local anesthetic only. If successful will follow-up with her and plan on RF ablation to these levels. Procedure Details:: Informed consent was obtained informed consent was obtained risk and benefits of procedure were explained to the patient. Patient was taken the procedure room. The neck was prepped using ChloraPrep. The skin and subtenons tissues were anesthetized using lidocaine. Under fluoroscopic guidance we inserted 22-gauge spinal needles into the facet joints bilaterally at C4-C5 and C5-C6 bilaterally. Needle placement was confirmed with dye. We then injected 0.5 mL lidocaine 1% into each facet joint bilateral C4-C5 and C5-C6. Patient tolerated procedure well with no complications. Plan and Disposition:: Will follow-up with this patient in 2 weeks. Will evaluate efficacy of this diagnostic block #2. If successful plan arthroplasty with continuous burn at 80 degrees C.
== END 2025-09-14 09:09 | disposition home or self-care (01) ==
LOC: SC.PAINP 08:16
PROVIDERS: PCP Family Medicine; Visit Provider Anesthesiology
DX: M47.812 Spondylosis without myelopathy or radiculopathy, cervical region (principal); E03.9 Hypothyroidism, unspecified; M50.30 Other cervical disc degeneration, unspecified cervical region; K21.9 Gastro-esophageal reflux disease without esophagitis; M79.7 Fibromyalgia; I11.0 Hypertensive heart disease with heart failure; I50.9 Heart failure, unspecified; Z90.710 Acquired absence of both cervix and uterus; Z98.51 Tubal ligation status; Z83.49 Family history of other endocrine, nutritional and metabolic diseases; Z79.890 Hormone replacement therapy; Z79.82 Long term (current) use of aspirin; Z79.899 Other long term (current) drug therapy
CPT/HCPCS: 64490; 64491; J0665; J2003; Q9966

== ENCOUNTER 2025-10-09 14:05 | Day surgery (SDC) | payer BC, SELFPAY ==
[2025-10-09 14:10] VITALS: BP 118/65; PULSE 73; RESP 16; O2SAT 100; BMI 39.3
[2025-10-09] MEDS: BUPIVACAINE 0.25% 10ML INJ 25 MG IJ (14:24)
[2025-10-09] MEDS: LIDOCAINE 1% 5ML PF VIAL 5 ML (14:24)
[2025-10-09] MEDS: DEXAMETHASONE 10MG/ML 1ML VIAL 10 MG (14:24)
[2025-10-09 14:28] VITALS: BP 118/65; PULSE 73; RESP 18; O2SAT 100
[2025-10-09] MEDS: IOPAMIDOL-200 (41%);10ML VIAL 10 ML IV (14:29)
[2025-10-09 14:31] VITALS: BP 118/65; PULSE 73; RESP 18; O2SAT 100
--- NOTE | 2025-10-09 14:38 | EXP.PAIN.PRO ---
Procedure Date: 10/09/25 Time: 14:25 Anesthesiologist:: Rock Parks CRNA Complications:: None Pre-procedure Diagnosis:: Degenerative disc cervical spine multilevels. Cervical radiculopathy. Cervical spondylosis. Post-procedure Diagnosis:: Same. Indications for Procedure:: Patient is a pleasant 69-year-old female who comes to clinic today for bilateral cervical C4-5, C5-6 radiofrequency ablation. Patient describes cervical neck pain as constant, dull, aching. Also shoulder and arm radicular symptoms at times. She reports positive results medial branch blocks at the same level. She rates her pain 7/10. Procedure Details:: Informed consent was obtained and the risk and benefits of the procedure was explained to the patient. Patient was placed prone on the procedure table. The patient was prepped and draped in sterile fashion. C-arm fluoroscopy was used to view the lumbar spine. The skin and subcutaneous tissues were anesthetized using lidocaine. I placed 20-gauge RF needles into the facet joints of C4-5, C5-6 levels on the right side. We underwent sensory stimulation. There is good sensory stimulation at 0.8 V. We underwent motor stimulation. There is no motor stimulation at 2.5 V. We then anesthetized these levels with lidocaine and dexamethasone. I used a total of 5 mg of dexamethasone for both levels. I then burned both levels of C4-5, C5-6 facet joint/medial branches on the right side for 4 minutes at 80 ?C. Patient tolerated the procedure well with no complication. Plan and Disposition:: Patient was discharged without incident.
[2025-10-09 14:46] VITALS: BP 141/69; PULSE 74; RESP 16; O2SAT 98
== END 2025-10-09 14:46 | disposition home or self-care (01) ==
PROVIDERS: PCP Family Medicine; Visit Provider Nurse Anesthetist, Certified Registered
DX: M47.22 Other spondylosis with radiculopathy, cervical region (principal); M50.121 Cervical disc disorder at C4-C5 level with radiculopathy; M50.122 Cervical disc disorder at C5-C6 level with radiculopathy; I11.0 Hypertensive heart disease with heart failure; I50.9 Heart failure, unspecified; E03.9 Hypothyroidism, unspecified; M79.7 Fibromyalgia; K21.9 Gastro-esophageal reflux disease without esophagitis; Z98.51 Tubal ligation status; Z90.710 Acquired absence of both cervix and uterus; Z79.899 Other long term (current) drug therapy; Z79.84 Long term (current) use of oral hypoglycemic drugs; Z79.890 Hormone replacement therapy; Z79.82 Long term (current) use of aspirin
CPT/HCPCS: 62321; J0665; J1100; J2003; Q9966